=== PATIENT | female | born 1985 | race Caucasian/White ===

== ENCOUNTER 2022-08-10 09:29 | Outpatient (REF) | payer MEDICAID, SELFPAY ==
[2022-08-10 11:01] LABS: Basophils Absolute Auto 0.1 X10*3/uL (0.0-0.2); Basophils Percent Auto 0.7 % (0-2); Eosinophils Absolute Auto 0.2 X10*3/uL (0.0-0.4); Eosinophils Percent Auto 2.2 % (0-4); Hematocrit 39.9 % (37.0-47.0); Hemoglobin 12.7 g/dl (12.0-16.0); Imm Gran Abs Auto 0.02 X10*3/uL (0.00-0.03); Imm Gran Pct Auto 0.2 % (0.0-0.4); Lymphocytes Absolute Auto 2.5 X10*3/uL (1.2-4.9); Lymphocytes Percent Auto 31.1 % (20-40); MANUAL DIFF FLAG SCAN; Mean Corpuscular HGB Conc 31.8 g/dl (31.0-35.0); Mean Corpuscular Hemoglobin 27.5 pg (27.0-33.0); Mean Corpuscular Volume 86.4 fL (80.0-98.0); Mean Platelet Volume 8.7 fL (9.4-12.3); Monocytes Absolute Auto 1.5 X10*3/uL (0.1-1.2); Neutrophils Absolute Auto 3.8 x10*3/uL (2.0-8.3); Neutrophils Percent Auto 46.8 % (45-73); Platelet Count 408 X10*3/uL (160-400); Red Blood Count 4.62 X10*6/uL (4.20-5.50); Red Cell Distribution Width 13.2 % (11.0-16.0); SCAN SMEAR FLAG 1; White Blood Count 8.1 X10*3/uL (4.8-10.8)
[2022-08-10 11:48] LABS: Erythrocyte Sedimentation Rate 14 MM/HR (0-20); SLIDE REVIEW VERIFIED
[2022-08-10 12:29] LABS: HBS Num1 > 1000.00 mIU/mL (0-7.99); HBsAGNum1 0.38 S/CO (0.00-0.99); Hepatitis A Antibody IgM 0.11 Index (0-0.79); Hepatitis B Core Antibody Nonreactive (Nonreactive); Hepatitis B Surface Antigen Negative (Negative); ~HepC Num1 0.09 S/CO (0.00-0.79); ~Hepatitis A Antibody IgM Nonreactive (Nonreactive); ~Hepatitis B Surface Antibody REACTIVE (Nonreactive); ~Hepatitis C Antibody Nonreactive (Nonreactive)
[2022-08-10 14:28] LABS: Alanine Aminotransferase 7 U/L (0-31); Albumin Level 3.9 g/dL (3.5-5.0); Alkaline Phosphatase 59 U/L (39-117); Anion Gap 11 (12-20); Aspartate Amino Transferase 10 U/L (5-31); Bilirubin Total 0.5 mg/dL (0.0-1.0); Blood Urea Nitrogen 15 mg/dL (9-16); Calcium 9.1 mg/dL (8.4-10.2); Carbon Dioxide 26 mmol/L (22-29); Chloride 104 mmol/L (96-108); Estimated Glomerular Filt Rate > 60; Ferritin 71 ng/mL (10-122); Glucose Random 79 mg/dL (60-115); Iron 74 mcg/dL (30-160); Percent Iron Saturation 34 % (15-50); Potassium 4.4 mmol/L (3.3-5.1); Sodium 137 mmol/L (135-145); Total Iron Binding Capacity 215 mcg/dL (228-428); Unsaturated Iron Binding 141 ug/dL
[2022-08-14 02:09] LABS: Transferrin 190 mg/dL (188-341)
[2022-08-14 19:38] LABS: TS Negative Control Passed; TS Panel A 0; TS Panel B 0; TS Positive Control Passed; TSpotTB Negative (Negative)
== END 2022-08-10 09:30 | disposition home or self-care (01) ==
LOC: HO.10HDL 09:29
PROVIDERS: Visit Provider Student in an Organized Health Care Education/Training Program
DX: Z11.59 Encounter for screening for other viral diseases (principal); Z11.7 Encounter for testing for latent tuberculosis infection; M45.A0 Non-radiographic axial spondyloarthritis of unspecified sites in spine; G25.81 Restless legs syndrome; M25.551 Pain in right hip; M25.552 Pain in left hip; D64.9 Anemia, unspecified
CPT/HCPCS: 36415; 80053; 82728; 83540; 84466; 85025; 85652; 86140; 86481; 86704; 86706; 86709; 86803; 87340; 99202

== ENCOUNTER → 2022-12-18 14:41 | Outpatient (BNVA) | payer OTHER, SELFPAY | PROVIDERS: PCP Family Medicine; Visit Provider Student in an Organized Health Care Education/Training Program | DX: M45.A0 Non-radiographic axial spondyloarthritis of unspecified sites in spine (principal); M25.551 Pain in right hip; M25.552 Pain in left hip; Z79.899 Other long term (current) drug therapy | CPT/HCPCS: 99212 ==

== ENCOUNTER 2023-04-22 13:28 | Outpatient (REF) | payer MEDICAID, SELFPAY ==
[2023-04-22 13:40] LABS: MANUAL DIFF FLAG NO
[2023-04-22 14:02] LABS: Basophils Absolute Auto 0.1 X10*3/uL (0.0-0.2); Basophils Percent Auto 0.7 % (0-2); Eosinophils Absolute Auto 0.2 X10*3/uL (0.0-0.4); Eosinophils Percent Auto 1.4 % (0-4); Hematocrit 41.2 % (37.0-47.0); Hemoglobin 13.2 g/dl (12.0-16.0); Imm Gran Abs Auto 0.03 X10*3/uL (0.00-0.03); Imm Gran Pct Auto 0.2 % (0.0-0.4); Lymphocytes Absolute Auto 4.5 X10*3/uL (1.2-4.9); Lymphocytes Percent Auto 36.3 % (20-40); Mean Corpuscular Hemoglobin 27.6 pg (27.0-33.0); Mean Platelet Volume 8.7 fL (9.4-12.3); Monocytes Absolute Auto 1.4 X10*3/uL (0.1-1.2); Monocytes Percent Auto 11.1 % (2-11); Neutrophils Absolute Auto 6.2 x10*3/uL (2.0-8.3); Neutrophils Percent Auto 50.3 % (45-73); Platelet Count 414 X10*3/uL (160-400); Red Blood Count 4.79 X10*6/uL (4.20-5.50); Red Cell Distribution Width 13.5 % (11.0-16.0); White Blood Count 12.3 X10*3/uL (4.8-10.8)
[2023-04-22 14:30] LABS: Alanine Aminotransferase 6 U/L (0-31); Albumin Level 3.9 g/dL (3.5-5.0); Alkaline Phosphatase 57 U/L (39-117); Anion Gap 9 (12-20); Aspartate Amino Transferase 9 U/L (5-31); Bilirubin Total 0.2 mg/dL (0.0-1.0); Blood Urea Nitrogen 12 mg/dL (9-16); C Reactive Protein 0.28 mg/dL (< or = 0.50); Carbon Dioxide 26 mmol/L (22-29); Chloride 106 mmol/L (96-108); Estimated Glomerular Filt Rate > 60; Glucose Random 78 mg/dL (60-115); Potassium 4.2 mmol/L (3.3-5.1); Sodium 137 mmol/L (135-145); Total Protein 7.4 g/dL (6.5-8.0)
[2023-04-22 14:42] LABS: Erythrocyte Sedimentation Rate 10 MM/HR (0-20)
== END 2023-04-22 13:29 | disposition home or self-care (01) ==
LOC: HO.LAB 13:28
PROVIDERS: PCP Family Medicine; Visit Provider Student in an Organized Health Care Education/Training Program
DX: M45.A0 Non-radiographic axial spondyloarthritis of unspecified sites in spine (principal)
CPT/HCPCS: 36415; 80053; 85025; 85652; 86140

== ENCOUNTER 2023-04-24 15:09 | Outpatient (AMB) | payer OTHER, SELFPAY ==
--- NOTE | 2023-04-24 15:24 | MHC.OFFVIS ---
Intake Vital Signs 04/24/23 15:25 Height 5 ft 2 in Weight 186 lb 11.704 oz BMI 34.1 BP 112/84 Blood Pressure Location Rt brachial Position Sitting Pulse 67 Pulse Source Pulse Oximeter Temp 98 F Temp Source Skin Pulse Oximetry (%) 99 Oxygen Delivery Method Room Air Intake Visit Reasons: PsA Intake Note: Here for RA follow up. Needs new PA for Humira- [facility]. Last filled with dispense amount of 2 pens (1 kit) as opposed to 6 pens (3 kits). Training Officer Required: No Accompanied by: Self / Same As Patient Allergies erythromycin base Adverse Reaction (Severe, Verified 04/24/23 15:25) Anaphylaxis Medication List - Last Reconciled 04/24/23 by Mery Millan MD adalimumab (Humira(CF) Pen) 40 mg (0.4 mL) subcut Q10D bupropion HCl 150 mg PO BID etodolac 400 mg PO BID gabapentin 900 mg (3 x 300 mg) PO BEDTIME norethindrone (contraceptive) 0.35 mg PO DAILY omeprazole 20 mg PO BID tizanidine 4 - 8 mg (1 - 2 x 4 mg) PO BEDTIME PRN tramadol 50 - 100 mg PO BID triamcinolone acetonide 0.5% appl topical verapamil ER 240 mg PO DAILY HPI HPI Comments History of Present Illness Details 37-year-old female with non radiographic axial spa returns for follow-up. Patient states that she is doing well overall. Occasional aches and pains but overall doing well. She he does stretching exercises for her hips. States that she is having some shoulder discomfort that she believes was related to repetitive pushing motion at work. Initial history: New patient with history of non radiographic axial spa presents for evaluation. Her previous talent solutions manager left the practice From previous talent solutions manager Dr. Suarez & Dr. Corley Patient has had years of MSK pains, but some pain with inflammatory characteristics.? HLA B27 negative.? She responded fairly were to indomethacin but the medication did not seem to last more than a few hours.? She had an excellent response to etodolac at 400 mg t.i.d. (took omeprazole for GI prophylaxis) Afterwards she developed gradual increase in symptoms with horrible a.m. stiffness lasting 1 hour.? Can hardly make it to bathroom in the middle of the night.? Started SSZ 12/2018.? It seemed quite helpful.? However involved worse and worse migraine headaches.? These resolved on cessation of med.? Started Humira July 2019 with dramatic improvement.? No nocturnal pain, no a.m. stiffness.? More energy. Lumbar films normal, no sacroiliitis.? Hips normal.? Of interest chronic diarrhea since a teenager.? She sometimes had nocturnal diarrhea.? Diarrhea has resolved with Humira.? Possible history of psoriasis Today patient feels well overall. She stated she has been on the Humira every for 1-2 years. She has occasional pain on the outside of her hips, usually worse in the morning. She recently gained 12 lb. 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 Recent psoriasis flares. [facility] Medical History Encounter for testing for latent tuberculosis infection Hypertension Low back pain Migraine Multiple joint pain Non-radiographic axial spondyloarthritis Psoriasis Screening for viral disease Surgical History Hx of section Family History Sister Asthma Mother Hyperlipidemia Hypertension Mental disorder Diabetes Seizure Father Hypertension FH: malignant neoplasm of prostate Maternal Grandmother Carcinoma of breast Social History Household Members: Family and Children Alcohol intake: current Alcohol intake frequency: holidays/special occasions only Patient Tobacco Use Status: Current everyday Tobacco user Tobacco use type: Cigarette Cigarette Packs Per Day: 4 Current occupational status: employed 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 Review of Systems [facility] [place] Reports arthralgias Physical Exam Vital Signs: Last Vital Signs Temp 98 F 04/24/23 15:25 Pulse 67 04/24/23 15:25 BP 112/84 04/24/23 15:25 Pulse Ox 99 04/24/23 15:25 Oxygen Delivery Method Room Air 04/24/23 15:25 BMI result Body Mass Index 34.1 Const General: cooperative, healthy appearing, comfortable and no acute distress Nutritional Appearance: obese Orientation/consciousness: patient oriented x3 Limitations: no limitations HEENT Head: Yes normocephalic and Yes atraumatic Mouth: moist mucous membranes Resp Effort & Inspection: normal respiratory effort and able to speak in complete sentences Auscultation: clear to auscultation bilaterally Cardio Rate: regular rate Rhythm: regular rhythm Heart sounds: S1 normal heart sound present and S2 normal heart sound present GI Inspection: No distended Palpation (GI): Soft to palpation and nontender Skin General skin exam: no rashes or lesions noted Neuro General: patient oriented x3 Extrem Other: Pattie test 10-16 cm No active synovitis Negative Hermilo's test Negative straight leg raise test Bilateral knee crepitus Results Reviewed Results Reviewed: labs 06/20/2022 CBC unremarkable PRIYA IFA negative ESR/CRP normal CMP unremarkable Assessment & Plan Assessment & Plan (1) Non-radiographic axial spondyloarthritis: Comment: Started SSZ 12/2018.? helpful.? caused migraines These resolved on cessation of med.? Started Humira July 2019 with dramatic improvement- advanced to every 10 days sometime in 2020 Code(s): M45.A0 - Non-radiographic axial spondyloarthritis of unspecified sites in spine Plan: 37-year-old female with non radiographic axial SpA presents for follow-up. Doing well overall. Continue Humira 40 mg Q 10 days. Infectious screening, hepatitis panel T spot negative 07/2022 Labs before next visit in 4 months (2) High risk medication use: Code(s): Z79.899 - Other terminal supervisor (current) drug therapy Plan: Advised patient to hold Humira if she develops any signs of infection Plan I spent 25 minutes reviewing patient's chart, evaluating patient, ordering diagnostic workup, counseling patient and documenting in the chart Coding Level of Care Code Est Pt Level 4 (07173) Diagnoses Non-radiographic axial spondyloarthritis M45.A0 High risk medication use Z79.899
[2023-04-24 15:25] VITALS: BP 112/84; PULSE 67; TEMP 36.6; O2SAT 99; BMI 34.1
== END 2023-04-24 16:10 | disposition home or self-care (01) ==
PROVIDERS: PCP Family Medicine; Visit Provider Student in an Organized Health Care Education/Training Program
DX: M45.A0 Non-radiographic axial spondyloarthritis of unspecified sites in spine (principal); Z79.899 Other long term (current) drug therapy
CPT/HCPCS: 99214

== ENCOUNTER → 2023-04-24 15:09 | Outpatient (BNVA) | payer OTHER, SELFPAY | PROVIDERS: PCP Family Medicine; Visit Provider Student in an Organized Health Care Education/Training Program ==

== ENCOUNTER 2023-08-27 14:54 | Outpatient (AMB) | payer OTHER, SELFPAY ==
--- NOTE | 2023-08-27 15:03 | MHC.OFFVIS ---
Intake Vital Signs 08/27/23 15:06 Height 5 ft 2 in Weight 188 lb 7.924 oz BMI 34.5 BP 124/90 H Blood Pressure Location Rt brachial Position Sitting Pulse 71 Pulse Source Pulse Oximeter Temp 97.3 F Temp Source Skin Pulse Oximetry (%) 98 Oxygen Delivery Method Room Air Intake Visit Reasons: AxSpA Intake Note: Pt last seen 04/24/23 presents today for follow up. Top Lift Scourer Required: No Accompanied by: Self / Same As Patient Allergies erythromycin base Adverse Reaction (Severe, Verified 08/27/23 15:08) Anaphylaxis Medication List - Last Reconciled 08/27/23 by Mery Millan MD bupropion HCl 150 mg PO BID etodolac 400 mg PO BID gabapentin 900 mg (3 x 300 mg) PO BEDTIME Humira(CF) Pen (adalimumab) 40 mg (0.4 mL) subcut Q10D NS norethindrone (contraceptive) 0.35 mg PO DAILY omeprazole 20 mg PO BID tizanidine 4 - 8 mg (1 - 2 x 4 mg) PO BEDTIME PRN tramadol 50 - 100 mg PO BID triamcinolone acetonide 0.5% appl topical verapamil ER 240 mg PO DAILY HPI HPI Comments History of Present Illness Details 38-year-old female with non radiographic axial spa returns for follow-up. Patient states that she is doing well overall. On Humira every 10 days. States that since it has been cold she has been getting more lower back pain, hip pain and knee pain. She has been taking etodolac almost daily. Which provides some relief. She takes Tylenol p.m. Initial history: New patient with history of non radiographic axial spa presents for evaluation. Her previous pump house technician left the practice From previous pump house technician Dr. Suarez & Dr. Corley Patient has had years of MSK pains, but some pain with inflammatory characteristics.? HLA B27 negative.? She responded fairly were to indomethacin but the medication did not seem to last more than a few hours.? She had an excellent response to etodolac at 400 mg t.i.d. (took omeprazole for GI prophylaxis) Afterwards she developed gradual increase in symptoms with horrible a.m. stiffness lasting 1 hour.? Can hardly make it to bathroom in the middle of the night.? Started SSZ 12/2018.? It seemed quite helpful.? However involved worse and worse migraine headaches.? These resolved on cessation of med.? Started Humira July 2019 with dramatic improvement.? No nocturnal pain, no a.m. stiffness.? More energy. Lumbar films normal, no sacroiliitis.? Hips normal.? Of interest chronic diarrhea since a teenager.? She sometimes had nocturnal diarrhea.? Diarrhea has resolved with Humira.? Possible history of psoriasis Today patient feels well overall. She stated she has been on the Humira every for 1-2 years. She has occasional pain on the outside of her hips, usually worse in the morning. She recently gained 12 lb. 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 Recent psoriasis flares. [facility] Medical History Encounter for testing for latent tuberculosis infection Screening for viral disease Non-radiographic axial spondyloarthritis Low back pain Hypertension Multiple joint pain Psoriasis Migraine Surgical History Hx of section Family History Sister Asthma Mother Hyperlipidemia Hypertension Mental disorder Diabetes Seizure Father Hypertension FH: malignant neoplasm of prostate Maternal Grandmother Carcinoma of breast Social History Household Members: Family and Children Alcohol intake: current Alcohol intake frequency: holidays/special occasions only Patient Tobacco Use Status: Current everyday Tobacco user Tobacco use type: Cigarette Cigarette Packs Per Day: 4 Current occupational status: employed 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 Review of Systems [place] Reports arthralgias Physical Exam Vital Signs: Last Vital Signs Temp 97.3 F 08/27/23 15:06 Pulse 71 08/27/23 15:06 BP 124/90 H 08/27/23 15:06 Pulse Ox 98 08/27/23 15:06 Oxygen Delivery Method Room Air 08/27/23 15:06 BMI result Body Mass Index 34.5 Const General: cooperative, healthy appearing, comfortable and no acute distress Nutritional Appearance: obese Orientation/consciousness: patient oriented x3 Limitations: no limitations HEENT Head: Yes normocephalic and Yes atraumatic Mouth: moist mucous membranes Resp Effort & Inspection: normal respiratory effort and able to speak in complete sentences Auscultation: clear to auscultation bilaterally Cardio Rate: regular rate Rhythm: regular rhythm Heart sounds: S1 normal heart sound present and S2 normal heart sound present GI Inspection: No distended Palpation (GI): Soft to palpation and nontender Skin General skin exam: no rashes or lesions noted Neuro General: patient oriented x3 Extrem Other: Pattie test 10-16 cm No active synovitis Negative Hermilo's test Negative straight leg raise test Bilateral knee crepitus No trochanteric bursa area tenderness today bilateral Results Reviewed Results Reviewed: labs 06/20/2022 CBC unremarkable PRIYA IFA negative ESR/CRP normal CMP unremarkable Assessment & Plan Assessment & Plan (1) Non-radiographic axial spondyloarthritis: Comment: Started SSZ 12/2018.? helpful.? caused migraines These resolved on cessation of med.? Started Humira July 2019 with dramatic improvement- advanced to every 10 days sometime in 2020 Code(s): M45.A0 - Non-radiographic axial spondyloarthritis of unspecified sites in spine Plan: 38-year-old female with non radiographic axial SpA presents for follow-up. Doing well overall. Her aches and pains are likely due to degenerative arthritis. Patient is taking etodolac almost daily. I suggested using more Tylenol and reducing it total lack as much as possible. Continue Humira 40 mg Q 10 days. Infectious screening, hepatitis panel T spot negative 07/2022 Labs before next visit in 4 months (2) High risk medication use: Code(s): Z79.899 - Other nursing home (current) drug therapy Plan: Advised patient to hold Humira if she develops any signs of infection (3) Immunization counseling: Code(s): Z71.85 - Encounter for immunization safety counseling Plan: Patient is up-to-date on her new COVID booster and flu vaccine for this season. Plan I spent 25 minutes reviewing patient's chart, evaluating patient, ordering diagnostic workup, counseling patient and documenting in the chart Orders: Orders Comprehensive Met. Panel 4 Months M45.A0 - Non-radiographic axial spondyloarthritis of unspecified sites in spine, Z79.899 - Other termite exterminator helper (current) drug therapy C Reactive Protein 4 Months M45.A0 - Non-radiographic axial spondyloarthritis of unspecified sites in spine, Z79.899 - Other termite exterminator helper (current) drug therapy Erythrocyte Sedimentation Rate 4 Months M45.A0 - Non-radiographic axial spondyloarthritis of unspecified sites in spine, Z79.899 - Other termite exterminator helper (current) drug therapy Complete Blood Count Auto Diff 4 Months M45.A0 - Non-radiographic axial spondyloarthritis of unspecified sites in spine, Z79.899 - Other nursing home (current) drug therapy Medications: Refilled tizanidine 4 - 8 mg (1 - 2 x 4 mg) PO BEDTIME PRN 60 tabs 1RF for muscle spasm M45.A0 - Non-radiographic axial spondyloarthritis of unspecified sites in spine Coding Level of Care Code Est Pt Level 4 (21185) Diagnoses Non-radiographic axial spondyloarthritis M45.A0 High risk medication use Z79.899 Immunization counseling Z71.85
[2023-08-27 15:06] VITALS: BP 124/90; PULSE 71; TEMP 36.3; O2SAT 98; BMI 34.5
== END 2023-08-27 15:18 | disposition home or self-care (01) ==
LOC: HO.RHE 14:54
PROVIDERS: PCP Family Medicine; Visit Provider Student in an Organized Health Care Education/Training Program
DX: M45.A0 Non-radiographic axial spondyloarthritis of unspecified sites in spine (principal); Z79.899 Other long term (current) drug therapy; Z71.85 Encounter for immunization safety counseling
CPT/HCPCS: 99214

== ENCOUNTER → 2023-08-27 14:54 | Outpatient (BNVA) | payer OTHER, SELFPAY | PROVIDERS: PCP Family Medicine; Visit Provider Student in an Organized Health Care Education/Training Program ==

== ENCOUNTER 2023-12-30 10:40 | Outpatient (REF) | payer OTHER, SELFPAY ==
[2023-12-30 11:03] LABS: MANUAL DIFF FLAG NO
[2023-12-30 11:39] LABS: Basophils Absolute Auto 0.1 X10*3/uL (0.0-0.2); Basophils Percent Auto 0.8 % (0-2); Eosinophils Absolute Auto 0.3 X10*3/uL (0.0-0.4); Eosinophils Percent Auto 2.4 % (0-4); Hematocrit 43.8 % (37.0-47.0); Imm Gran Abs Auto 0.04 X10*3/uL (0.00-0.03); Imm Gran Pct Auto 0.3 % (0.0-0.4); Lymphocytes Absolute Auto 4.4 X10*3/uL (1.2-4.9); Lymphocytes Percent Auto 33.5 % (20-40); Mean Corpuscular Hemoglobin 27.6 pg (27.0-33.0); Mean Corpuscular Volume 86.4 fL (80.0-98.0); Mean Platelet Volume 8.6 fL (9.4-12.3); Monocytes Absolute Auto 1.2 X10*3/uL (0.1-1.2); Monocytes Percent Auto 8.9 % (2-11); Neutrophils Absolute Auto 7.1 x10*3/uL (2.0-8.3); Neutrophils Percent Auto 54.1 % (45-73); Platelet Count 460 X10*3/uL (160-400); Red Blood Count 5.07 X10*6/uL (4.20-5.50); Red Cell Distribution Width 13.2 % (11.0-16.0); White Blood Count 13.1 X10*3/uL (4.8-10.8)
[2023-12-30 12:12] LABS: Alanine Aminotransferase 12 U/L (0-31); Albumin Level 4.1 g/dL (3.5-5.0); Alkaline Phosphatase 75 U/L (39-117); Anion Gap 13 (12-20); Aspartate Amino Transferase 10 U/L (5-31); Bilirubin Total 0.3 mg/dL (0.0-1.0); Blood Urea Nitrogen 12 mg/dL (9-16); C Reactive Protein 0.44 mg/dL (< or = 0.50); Calcium 9.7 mg/dL (8.4-10.2); Carbon Dioxide 27 mmol/L (22-29); Chloride 104 mmol/L (96-108); Estimated Glomerular Filt Rate > 60; Glucose Random 95 mg/dL (60-115); Potassium 4.2 mmol/L (3.3-5.1); Sodium 140 mmol/L (135-145); Total Protein 7.9 g/dL (6.5-8.0)
[2023-12-30 12:27] LABS: Erythrocyte Sedimentation Rate 14 MM/HR (0-20)
== END 2023-12-30 10:41 | disposition home or self-care (01) ==
LOC: HO.LAB 10:40
PROVIDERS: PCP Family Medicine; Visit Provider Student in an Organized Health Care Education/Training Program
DX: M45.A0 Non-radiographic axial spondyloarthritis of unspecified sites in spine (principal); Z79.899 Other long term (current) drug therapy
CPT/HCPCS: 36415; 80053; 85025; 85652; 86140

== ENCOUNTER 2024-01-06 09:00 | Outpatient (AMB) | payer OTHER, SELFPAY ==
--- NOTE | 2024-01-06 09:11 | MHC.OFFVIS ---
Vital Signs 01/06/24 09:13 Height 5 ft 2 in Weight 191 lb 12.835 oz BMI 35.1 BP 110/80 Blood Pressure Location Rt brachial Position Sitting Pulse 74 Pulse Source Pulse Oximeter Pulse Oximetry (%) 98 Oxygen Delivery Method Room Air Intake Visit Reasons: AxSpA Intake Note: Patient last seen 08/27/23 presents today for follow up and test results. Acquisition Cost Estimator Required: No Accompanied by: Self / Same As Patient Allergies erythromycin base Adverse Reaction (Severe, Verified 01/06/24 09:12) Anaphylaxis Medication List - Last Reconciled 01/06/24 by Mery Millan MD bupropion HCl SR 150 mg PO BID etodolac 400 mg PO BID PRN gabapentin 900 mg (3 x 300 mg) PO BEDTIME Humira(CF) Pen (adalimumab) 40 mg (0.4 mL) subcut Q10D NS norethindrone (contraceptive) 0.35 mg PO DAILY omeprazole 20 mg PO BID tizanidine 4 - 8 mg (1 - 2 x 4 mg) PO BEDTIME PRN tramadol 50 - 100 mg PO BID triamcinolone acetonide 0.5% appl topical verapamil ER 240 mg PO DAILY HPI Comments Details: 38-year-old female with non radiographic axial spa returns for follow-up. Patient states that she is doing well overall. On Humira every 10 days. She states that back in September she caught an infection from her son and she was very sick and achy for 2 weeks. Is doing fairly well overall. Many of her joints crack. She states that the Humira works reasonably well for 7-8 days then some of the pain starts to come back. She needs to take etodolac twice daily. Smokes about a quarter pack/day. Initial history: New patient with history of non radiographic axial spa presents for evaluation. Her previous biomedical repair technician left the practice From previous biomedical repair technician Dr. Suarez & Dr. Corley Patient has had years of MSK pains, but some pain with inflammatory characteristics.? HLA B27 negative.? She responded fairly were to indomethacin but the medication did not seem to last more than a few hours.? She had an excellent response to etodolac at 400 mg t.i.d. (took omeprazole for GI prophylaxis) Afterwards she developed gradual increase in symptoms with horrible a.m. stiffness lasting 1 hour.? Can hardly make it to bathroom in the middle of the night.? Started SSZ 12/2018.? It seemed quite helpful.? However involved worse and worse migraine headaches.? These resolved on cessation of med.? Started Humira July 2019 with dramatic improvement.? No nocturnal pain, no a.m. stiffness.? More energy. Lumbar films normal, no sacroiliitis.? Hips normal.? Of interest chronic diarrhea since a teenager.? She sometimes had nocturnal diarrhea.? Diarrhea has resolved with Humira.? Possible history of psoriasis Today patient feels well overall. She stated she has been on the Humira every for 1-2 years. She has occasional pain on the outside of her hips, usually worse in the morning. She recently gained 12 lb. 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 Recent psoriasis flares. [facility] Medical History Encounter for testing for latent tuberculosis infection Screening for viral disease Non-radiographic axial spondyloarthritis Low back pain Hypertension Multiple joint pain Psoriasis Migraine Surgical History Hx of section Family History Sister Asthma Mother Hyperlipidemia Hypertension Mental disorder Diabetes Seizure Father Hypertension FH: malignant neoplasm of prostate Maternal Grandmother Carcinoma of breast Social History Household Members: Family and Children Alcohol intake: current Alcohol intake frequency: holidays/special occasions only Patient Tobacco Use Status: Current everyday Tobacco user Tobacco use type: Cigarette Cigarette Packs Per Day: 4 Current occupational status: employed 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 of Systems [facility] [place] Reports arthralgias Physical Exam Vital Signs: Last Vital Signs Pulse 74 01/06/24 09:13 BP 110/80 01/06/24 09:13 Pulse Ox 98 01/06/24 09:13 Oxygen Delivery Method Room Air 01/06/24 09:13 BMI result Body Mass Index 35.1 Const General: cooperative, healthy appearing, comfortable and no acute distress Nutritional Appearance: obese Orientation/consciousness: patient oriented x3 Limitations: no limitations HEENT Head: Yes normocephalic and Yes atraumatic Mouth: moist mucous membranes Resp Effort & Inspection: normal respiratory effort and able to speak in complete sentences Auscultation: clear to auscultation bilaterally Cardio Rate: regular rate Rhythm: regular rhythm Heart sounds: S1 normal heart sound present and S2 normal heart sound present GI Inspection: No distended Palpation (GI): Soft to palpation and nontender Skin General skin exam: no rashes or lesions noted Neuro General: patient oriented x3 Extrem Other: Pattie test 10-16 cm No active synovitis Negative Hermilo's test Negative straight leg raise test Bilateral knee crepitus No trochanteric bursa area tenderness today bilateral Results Reviewed Results Reviewed: labs 06/20/2022 CBC unremarkable PRIYA IFA negative ESR/CRP normal CMP unremarkable Assessment & Plan Assessment & Plan (1) Non-radiographic axial spondyloarthritis: Comment: Started SSZ 12/2018.? helpful.? caused migraines These resolved on cessation of med.? Started Humira July 2019 with dramatic improvement- advanced to every 10 days sometime in 2020 Code(s): M45.A0 - Non-radiographic axial spondyloarthritis of unspecified sites in spine Category: Medical Plan: 38-year-old female with non radiographic axial SpA presents for follow-up. Doing well overall. Her aches and pains are likely due to degenerative arthritis. Patient is taking etodolac 400 mg bid. I suggested using more Tylenol and reducing Etodolc as much as possible. Continue Humira 40 mg Q 10 days. Continue gabapentin and tizanidine as prescribed Infectious screening, hepatitis panel T spot negative 07/2022 Labs before next visit in 4 months (2) High risk medication use: Code(s): Z79.899 - Other local intermodal truck driver (current) drug therapy Category: Medical Plan: Advised patient to hold Humira if she develops any signs of infection Plan I spent 25 minutes reviewing patient's chart, evaluating patient, ordering diagnostic workup, counseling patient and documenting in the chart Orders: Orders C Reactive Protein 4 Months M45.A0 - Non-radiographic axial spondyloarthritis of unspecified sites in spine Erythrocyte Sedimentation Rate 4 Months M45.A0 - Non-radiographic axial spondyloarthritis of unspecified sites in spine Hepatitis A,B,C Profile 4 Months Z11.59 - Encounter for screening for other viral diseases Complete Blood Count Auto Diff 4 Months M45.A0 - Non-radiographic axial spondyloarthritis of unspecified sites in spine Comprehensive Met. Panel 4 Months M45.A0 - Non-radiographic axial spondyloarthritis of unspecified sites in spine T Spot TB 4 Months Z11.7 - Encounter for testing for latent tuberculosis infection Coding Level of Care Code Est Pt Level 4 (37373) Diagnoses Non-radiographic axial spondyloarthritis M45.A0 High risk medication use Z79.899
[2024-01-06 09:13] VITALS: BP 110/80; PULSE 74; O2SAT 98; BMI 35.1
== END 2024-01-06 09:35 | disposition home or self-care (01) ==
PROVIDERS: PCP Family Medicine; Visit Provider Student in an Organized Health Care Education/Training Program
DX: M45.A0 Non-radiographic axial spondyloarthritis of unspecified sites in spine (principal); Z79.899 Other long term (current) drug therapy
CPT/HCPCS: 99214

== ENCOUNTER → 2024-01-06 09:00 | Outpatient (BNVA) | payer OTHER, SELFPAY | PROVIDERS: PCP Family Medicine; Visit Provider Student in an Organized Health Care Education/Training Program ==

== ENCOUNTER 2024-02-03 08:27 | Outpatient (AMB) | payer OTHER, SELFPAY ==
--- NOTE | 2024-02-03 08:30 | A.OFFVIS_ITS ---
Vital Signs 02/03/24 08:31 Height 5 ft 2 in Weight 187 lb 9.814 oz BMI 34.3 BP 104/70 Blood Pressure Location Rt brachial Position Sitting Pulse 73 Pulse Source Pulse Oximeter Pulse Oximetry (%) 97 Oxygen Delivery Method Room Air Intake Visit Reasons: PSA/CM Intake Note: Pt presents today for follow up up visit. She was in urgent care for mouth/tongue lesions and was advised to follow up with rheum for lupus eval. Has been using magic mouthwash with little relief. Reports hoarseness, and tongue burning Supply Chain Planner Required: No Accompanied by: Self / Same As Patient Allergies erythromycin base Adverse Reaction (Severe, Verified 02/03/24 08:39) Anaphylaxis Medication List - Last Reconciled 02/03/24 by Mery Millan MD bupropion HCl SR 150 mg PO BID etodolac 400 mg PO BID PRN gabapentin 900 mg (3 x 300 mg) PO BEDTIME Humira(CF) Pen (adalimumab) 40 mg (0.4 mL) subcut Q10D NS norethindrone (contraceptive) 0.35 mg PO DAILY omeprazole 20 mg PO BID tizanidine 4 - 8 mg (1 - 2 x 4 mg) PO BEDTIME PRN tramadol 50 - 100 mg PO BID triamcinolone acetonide 0.5% appl topical verapamil ER 240 mg PO DAILY HPI Comments Details: 38-year-old female with non radiographic axial spa returns for an urgent visit. Last week she went to urgent care due to lesions, swelling and burning of her tongue and side of her gum. At urgent care she was told that she might have an SLE flare-up. She was prescribed magic mouthwash with some improvement. Her voice is still not normal. She denies any skin rashes, swollen joints or fevers. Initial history: New patient with history of non radiographic axial spa presents for evaluation. Her previous lead quality control technician left the practice From previous lead quality control technician Dr. Suarez & Dr. Corley Patient has had years of MSK pains, but some pain with inflammatory characteristics.? HLA B27 negative.? She responded fairly were to indomethacin but the medication did not seem to last more than a few hours.? She had an excellent response to etodolac at 400 mg t.i.d. (took omeprazole for GI prophylaxis) Afterwards she developed gradual increase in symptoms with horrible a.m. stiffness lasting 1 hour.? Can hardly make it to bathroom in the middle of the night.? Started SSZ 12/2018.? It seemed quite helpful.? However involved worse and worse migraine headaches.? These resolved on cessation of med.? Started Humira July 2019 with dramatic improvement.? No nocturnal pain, no a.m. stiffness.? More energy. Lumbar films normal, no sacroiliitis.? Hips normal.? Of interest chronic diarrhe a since a teenager.? She sometimes had nocturnal diarrhea.? Diarrhea has resolved with Humira.? Possible history of psoriasis Today patient feels well overall. She stated she has been on the Humira every for 1-2 years. She has occasional pain on the outside of her hips, usually worse in the morning. She recently gained 12 lb. 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 Recent psoriasis flares. [facility] Medical History Non-radiographic axial spondyloarthritis Low back pain Hypertension Multiple joint pain Psoriasis Migraine Surgical History Hx of section Family History Sister Asthma Mother Hyperlipidemia Hypertension Mental disorder Diabetes Seizure Father Hypertension FH: malignant neoplasm of prostate Maternal Grandmother Carcinoma of breast Social History Household Members: Family and Children Alcohol intake: current Alcohol intake frequency: holidays/special occasions only Patient Tobacco Use Status: Current everyday Tobacco user Tobacco use type: Cigarette Cigarette Packs Per Day: 4 Current occupational status: employed 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 Review of Systems ENT Reports change in voice and Reports mouth lesions Musc Denies arthralgias and Denies joint swelling Skin/Breast Denies rash Physical Exam Vital Signs: Last Vital Signs Pulse 73 02/03/24 08:31 BP 104/70 02/03/24 08:31 Pulse Ox 97 02/03/24 08:31 Oxygen Delivery Method Room Air 02/03/24 08:31 BMI result Body Mass Index 34.3 Const General: cooperative, healthy appearing, comfortable and no acute distress Nutritional Appearance: obese Orientation/consciousness: patient oriented x3 Limitations: no limitations HEENT Head: Yes normocephalic and Yes atraumatic Mouth: moist mucous membranes Resp Effort & Inspection: normal respiratory effort and able to speak in complete sentences Skin General skin exam: no rashes or lesions noted Neuro General: patient oriented x3 Extrem Other: No active synovitis Results Reviewed Results Reviewed: labs 06/20/2022 CBC unremarkable PRIYA IFA negative ESR/CRP normal CMP unremarkable Assessment & Plan Assessment & Plan (1) Non-radiographic axial spondyloarthritis: Comment: Started SSZ 12/2018.? helpful.? caused migraines These resolved on cessation of med.? Started Humira July 2019 with dramatic improvement- advanced to every 10 da ys sometime in 2020 Code(s): M45.A0 - Non-radiographic axial spondyloarthritis of unspecified sites in spine Category: Medical Plan: 38-year-old female with non radiographic axial SpA returns for an urgent visit. She went to urgent care due to sore throat, oral lesions, swelling of her tongue. She was prescribed magic mouthwash with some improvement. Start dexamethasone oral elix swish and spit Q 6-8 hours for a few days. Follow-up as scheduled in April Plan I spent 15 minutes reviewing patient's chart, evaluating patient, counseling patient and documenting in the chart Medications: New dexamethasone (5 mL) swish & spit q6-8 237 mL 0RF Coding Level of Care Code Est Pt Level 3 (58024) Diagnoses Non-radiographic axial spondyloarthritis M45.A0
[2024-02-03 08:31] VITALS: BP 104/70; PULSE 73; O2SAT 97; BMI 34.3
== END 2024-02-03 08:55 | disposition home or self-care (01) ==
PROVIDERS: PCP Family Medicine; Visit Provider Student in an Organized Health Care Education/Training Program
DX: M45.A0 Non-radiographic axial spondyloarthritis of unspecified sites in spine (principal)
CPT/HCPCS: 99213

== ENCOUNTER → 2024-02-03 08:27 | Outpatient (BNVA) | payer OTHER, SELFPAY | PROVIDERS: PCP Family Medicine; Visit Provider Student in an Organized Health Care Education/Training Program ==

== ENCOUNTER 2024-07-06 15:26 | Outpatient (AMB) | payer OTHER, SELFPAY ==
--- NOTE | 2024-07-06 15:38 | A.OFFVIS_ITS ---
Vital Signs 07/06/24 15:42 Height 5 ft 2 in Weight 190 lb 7.67 oz BMI 34.8 BP 110/70 Blood Pressure Location Lt brachial Position Sitting Pulse 68 Pulse Source Pulse Oximeter Pulse Oximetry (%) 98 Oxygen Delivery Method Room Air Intake Visit Reasons: AxSpA/CM Intake Note: Patient last seen by Doctor Mery Millan on 02/03/24. Presents today for AxSpA follow up. Allergies erythromycin base Adverse Reaction (Severe, Verified 07/06/24 15:43) Anaphylaxis Medication List - Last Reconciled 07/06/24 by Mery Millan MD bupropion HCl SR 150 mg PO BID dexamethasone swish & spit q6-8 etodolac 400 mg PO BID PRN gabapentin 900 mg (3 x 300 mg) PO BEDTIME Humira(CF) Pen (adalimumab) 40 mg (0.4 mL) subcut Q10D NS norethindrone (contraceptive) 0.35 mg PO DAILY omeprazole 20 mg PO BID tizanidine 4 - 8 mg (1 - 2 x 4 mg) PO BEDTIME PRN tramadol 50 - 100 mg PO BID triamcinolone acetonide 0.5% appl topical verapamil ER 240 mg PO DAILY HPI Comments Details: 38-year-old female with non radiographic axial spa returns for follow-up. Doing well overall on Humira 40 mg injection every 10 days. She has no complaints today. Denies any joint pain swelling or stiffness. She remains on etodolac 400 mg daily. She takes them before she goes to work Initial history: New patient with history of non radiographic axial spa presents for evaluation. Her previous boiler house mechanic left the practice From previous boiler house mechanic Dr. Suarez & Dr. Corley Patient has had years of MSK pains, but some pain with inflammatory characteristics.? HLA B27 negative.? She responded fairly were to indomethacin but the medication did not seem to last more than a few hours.? She had an excellent response to etodolac at 400 mg t.i.d. (took omeprazole for GI prophylaxis) Afterwards she developed gradual increase in symptoms with horrible a.m. stiffness lasting 1 hour.? Can hardly make it to bathroom in the middle of the night.? Started SSZ 12/2018.? It seemed quite helpful.? However involved worse and worse migraine headaches.? These resolved on cessation of med.? Started Humira July 2019 with dramatic improvement.? No nocturnal pain, no a.m. stiffness.? More energy. Lumbar films normal, no sacroiliitis.? Hips normal.? Of interest chronic diarrhea since a teenager.? She sometimes had nocturnal diarrhea.? Diarrhea has resolved with Humira.? Possible history of psoriasis Today patient feels well overall. She stated she has been on the Humira every for 1-2 years. She has occasional pain on the outside of her hips, usually worse in the morning. She recently gained 12 lb. 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 Recent psoriasis flares. [facility] Medical History Non-radiographic axial spondyloarthritis Low back pain Hypertension Multiple joint pain Psoriasis Migraine Surgical History Hx of section Family History Sister Asthma Mother Hyperlipidemia Hypertension Mental disorder Diabetes Seizure Father Hypertension FH: malignant neoplasm of prostate Maternal Grandmother Carcinoma of breast Social History Household Members: Family and Children Alcohol intake: current Alcohol intake frequency: holidays/special occasions only Patient Tobacco Use Status: Current everyday Tobacco user Tobacco use type: Cigarette Cigarette Packs Per Day: 4 Current occupational status: employed 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 Review of Systems Musc Denies back pain, Denies arthralgias, Denies joint swelling and Denies stiffness Physical Exam Vital Signs: Last Vital Signs Pulse 68 07/06/24 15:42 BP 110/70 07/06/24 15:42 Pulse Ox 98 07/06/24 15:42 Oxygen Delivery Method Room Air 07/06/24 15:42 BMI result Body Mass Index 34.8 Const General: cooperative, healthy appearing, comfortable and no acute distress Nutritional Appearance: obese Orientation/consciousness: patient oriented x3 Limitations: no limitations HEENT Head: Yes normocephalic and Yes atraumatic Mouth: moist mucous membranes Resp Effort & Inspection: normal respiratory effort and able to speak in complete sentences Auscultation: clear to auscultation bilaterally Cardio Rate: regular rate Rhythm: regular rhythm Heart sounds: S1 normal heart sound present and S2 normal heart sound present GI Inspection: No distended Palpation (GI): Soft to palpation and nontender Skin General skin exam: no rashes or lesions noted Neuro General: patient oriented x3 Extrem Other: Pattie test 10-16 cm No active synovitis Negative Hermilo's test Negative straight leg raise test Bilateral knee crepitus No trochanteric bursa area tenderness today bilateral Assessment & Plan Assessment & Plan (1) Non-radiographic axial spondyloarthritis: Comment: Started SSZ 12/2018.? helpful.? caused migraines These resolved on cessation of med.? Started Humira July 2019 with dramatic improvement- advanced to every 10 days sometime in 2020 Code(s): M45.A0 - Non-radiographic axial spondyloarthritis of unspecified sites in spine Category: Medical Plan: 38-year-old female with non radiographic axial SpA presents for follow-up. Doing well overall on Humira 40 mg every 10 days. She also takes etodolac 400 mg daily. She has cut down from 400 mg Twice daily. Continue Humira 40 mg Q 10 days. Continue gabapentin and tizanidine as prescribed Infectious screening, hepatitis panel T spot negative 07/2022. Check before next visit Labs before next visit in 4 months (2) High risk medication use: Code(s): Z79.899 - Other oil heaterman (current) drug therapy Category: Medical Plan: Advised patient to hold Humira if she develops any signs of infection Plan I spent 25 minutes reviewing patient's chart, evaluating patient, ordering diagnostic workup, counseling patient and documenting in the chart Orders: Orders Comprehensive Met. Panel 4 Months M45.A0 - Non-radiographic axial spondyloarthritis of unspecified sites in spine, Z79.899 - Other senior care (current) drug therapy C Reactive Protein 4 Months M45.A0 - Non-radiographic axial spondyloarthritis of unspecified sites in spine, Z79.899 - Other senior care (current) drug therapy Hepatitis A,B,C Profile 4 Months Z11.59 - Encounter for screening for other viral diseases T Spot TB 4 Months Z11.7 - Encounter for testing for latent tuberculosis infection Complete Blood Count Auto Diff 4 Months M45.A0 - Non-radiographic axial spondyloarthritis of unspecified sites in spine, Z79.899 - Other senior care (current) drug therapy Erythrocyte Sedimentation Rate 4 Months M45.A0 - Non-radiographic axial spondyloarthritis of unspecified sites in spine, Z79.899 - Other oil heaterman (current) drug therapy Coding Level of Care Code Est Pt Level 4 (31606) Complex EM visit Add On G2211 Diagnoses Non-radiographic axial spondyloarthritis M45.A0 High risk medication use Z79.899
[2024-07-06 15:42] VITALS: BP 110/70; PULSE 68; O2SAT 98; BMI 34.8
== END 2024-07-06 16:04 | disposition home or self-care (01) ==
PROVIDERS: PCP Family Medicine; Visit Provider Student in an Organized Health Care Education/Training Program
DX: M45.A0 Non-radiographic axial spondyloarthritis of unspecified sites in spine (principal); Z79.899 Other long term (current) drug therapy
CPT/HCPCS: 99214; G2211

== ENCOUNTER → 2024-07-06 15:26 | Outpatient (BNVA) | payer OTHER, SELFPAY | PROVIDERS: PCP Family Medicine; Visit Provider Student in an Organized Health Care Education/Training Program ==

== ENCOUNTER 2024-11-02 11:30 | Outpatient (REF) | payer OTHER, SELFPAY ==
[2024-11-02 11:44] LABS: MANUAL DIFF FLAG NO
[2024-11-02 12:22] LABS: Basophils Absolute Auto 0.1 X10*3/uL (0.0-0.2); Basophils Percent Auto 0.6 % (0-2); Eosinophils Absolute Auto 0.2 X10*3/uL (0.0-0.4); Eosinophils Percent Auto 1.4 % (0-4); Hematocrit 41.6 % (37.0-47.0); Hemoglobin 13.4 g/dl (12.0-16.0); Imm Gran Abs Auto 0.05 X10*3/uL (0.00-0.03); Imm Gran Pct Auto 0.4 % (0.0-0.4); Lymphocytes Percent Auto 34.7 % (20-40); Mean Corpuscular HGB Conc 32.2 g/dl (31.0-35.0); Mean Corpuscular Hemoglobin 27.3 pg (27.0-33.0); Mean Corpuscular Volume 84.9 fL (80.0-98.0); Mean Platelet Volume 8.8 fL (9.4-12.3); Monocytes Absolute Auto 1.5 X10*3/uL (0.1-1.2); Neutrophils Absolute Auto 5.8 x10*3/uL (2.0-8.3); Neutrophils Percent Auto 49.9 % (45-73); Platelet Count 381 X10*3/uL (160-400); Red Cell Distribution Width 13.8 % (11.0-16.0); White Blood Count 11.6 X10*3/uL (4.8-10.8)
[2024-11-02 13:03] LABS: Alanine Aminotransferase 12 U/L (0-31); Albumin Level 3.9 g/dL (3.5-5.0); Alkaline Phosphatase 64 U/L (39-117); Anion Gap 8 (12-20); Aspartate Amino Transferase 12 U/L (5-31); Bilirubin Total 0.3 mg/dL (0.0-1.0); Blood Urea Nitrogen 12 mg/dL (9-16); Calcium 8.8 mg/dL (8.4-10.2); Carbon Dioxide 28 mmol/L (22-29); Chloride 107 mmol/L (96-108); Estimated Glomerular Filt Rate > 60; Glucose Random 83 mg/dL (60-115); Potassium 4.1 mmol/L (3.3-5.1); Sodium 139 mmol/L (135-145); Total Protein 7.9 g/dL (6.5-8.0)
--- OUTSIDE RECORDS SUMMARY | 2024-11-02 13:12 | XMS_ITS | Data Portability ---
Author Organization [facility], , [facility] Address [address] [place] [address] Care Team Providers Care Automotive Vehicle Inspector Name Role Phone KY DIXON Primary Care Provider [facility] Court Manager [facility] Stage Driver ADELINE LEA Court Manager TONO MARTÍNEZ Firer Glost Kiln [facility] Orthopedist KRYSTAL ONOFRE [employer]ator [facility] [phone] Assessment No assessment recorded. Plan of Treatment Reminders Order Date Submit Date Provider Last Modified By Organization Details Last Modified Time Details Appointments Wellness Visit 30 2024 09:00A M Ky Dixon MD Not available Not available Not available Lab bacterial vaginosis + vaginitis panel, vaginal - source: vaginal 2023 024 [facility], [address] [place] [address], [id number], 06/30/2024 16:04:09 test, urine [email or web address] [facility], [address] [place] [address], [id number], 06/30/2024 10:49:52 Referral sports medicine referral - 2 months shoulder pain. suspect bicep tendoniti s given ecrcises 2024 025 [email or web address] Daniel Vides MD, [address] [place] [address], [id number], 11/02/2024 10:07:57 Procedures None recorded. Surgeries None recorded. Imaging US, pelvis, transabdo karine + transvagi nal - 38 y/o with pelvic pain, please assess for any abnormali ty. 2023 024 [facility] (Imaging), [address], [place], [address], 07/08/2024 15:30:16 Medication Orders triamcino lone acetonide 0.5 % topical cream 2022 023 [facility], [address] [facility], [place], [address], 12/17/2022 11:23:04 Patient TargetsNo targets recorded. 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 susp ect bicep tendonitis given ecrcises Referring Physician: Ky Dixon, Family Medicine, Encounter Date: 10/30/2024 Results Created Date Observation Date Name Description Value Unit Range Abnormal Flag Note LastModifiedBy Organization Detail LastModifiedTime 04/13/2004/13/2024 CBC WBC 10.38 K/??L 3.98-1 0.04 high Not Available [address], [address], 04/13/2024 10:35:25 04/13/20 24 04/13/2024 CBC RBC 4.73 M/??L 3.93-5 .22 Not Available [address], [address], 04/13/2024 10:35:25 04/13/20 24 04/13/2024 CBC HGB 13.2 g/dL 11.2-1 5.7 Not Available [address], [address], 04/13/2024 10:35:25 04/13/20 24 04/13/2024 CBC HCT 40.8 % 34.1-4 4.9 Not Available [address], [address], 04/13/2024 10:35:25 04/13/20 24 04/13/2024 CBC MCV 86.3 fL 79.4-9 4.8 Not Available [address], [address], 04/13/2024 10:35:25 04/13/20 24 04/13/2024 CBC MCH 27.9 pg 25.6-3 2.2 Not Available [address], [address], 04/13/2024 10:35:25 04/13/20 24 04/13/2024 CBC MCHC 32.4 g/dL 32.2-3 5.5 Not Available [address], [address], 04/13/2024 10:35:25 04/13/20 24 04/13/2024 CBC plt 422 K/??L 182-36 9 high Not Available [address], [address], 04/13/2024 10:35:25 04/13/20 24 04/13/2024 CBC MPV 8.9 fL 9.4-12 .3 low Not Available [address], [address], 04/13/2024 10:35:25 04/13/20 24 04/13/2024 CBC neut% 37.3 % 34.0-7 1.1 Not Available [address], [address], 04/13/2024 10:35:25 04/13/20 24 04/13/2024 CBC neut# 3.87 1.56-6 .13 Not Available [address], [address], 04/13/2024 10:35:25 04/13/20 24 04/13/2024 CBC lymph % 47.5 % 19.3-5 1.7 Not Available [address], [address], 04/13/2024 10:35:25 04/13/20 24 04/13/2024 CBC lymph # 4.93 K/??L 1.18-3 .74 high Not Available [address], [address], 04/13/2024 10:35:25 04/13/20 24 04/13/2024 CBC mono% 12.1 % 4.7-12 .5 Not Available [address], [address], 04/13/2024 10:35:25 04/13/20 24 04/13/2024 CBC mono# 1.26 0.24-0 .56 high Not Available [address], [address], 04/13/2024 10:35:25 04/13/20 24 04/13/2024 CBC eo% 1.8 % 0.7-5. 8 Not Available [address], [address], 04/13/2024 10:35:25 04/13/20 24 04/13/2024 CBC eo# 0.19 0.04-0 .36 Not Available [address], [address], 04/13/2024 10:35:25 04/13/20 24 04/13/2024 CBC baso% 1.0 % 0.1-1. 2 Not Available [address], [address], 04/13/2024 10:35:25 04/13/20 24 04/13/2024 CBC baso# 0.10 0.00-0 .08 high Not Available [address], [address], 04/13/2024 10:35:25 04/13/20 24 04/13/2024 CBC RDW-CV 13.4 % 11.7-1 4.4 Not Available [address], [address], 04/13/2024 10:35:25 04/13/20 24 04/13/2024 CBC Ig% 0.300 % 0.000- 1.500 Ig % >0.5 Indic ates possi ble Left Shift Not Available [address], [address], 04/13/2024 10:35:25 04/13/20 24 04/13/2024 CBC Ig# 0.030 0.000- 0.093 Not Available [address], [address], 04/13/2024 10:35:25 04/13/20 24 04/13/2024 CBC NRBC% 0.0 % 0.0-0. 2 Not Available [address], [address], 04/13/2024 10:35:25 04/13/20 24 04/13/2024 CBC NRBC# 0.000 0.000- 0.012 Not Available [address], [address], 04/13/2024 10:35:25 04/13/20 24 04/13/2024 COMP. METAB OLIC PANEL glucose 85 mg/dL 70-100 Not Available [address], [address], 04/13/2024 11:19:46 04/13/20 24 04/13/2024 COMP. METAB OLIC PANEL BUN 11 mg/dL 7-18 Not Available [address], [address], 04/13/2024 11:19:46 04/13/20 24 04/13/2024 COMP. METAB OLIC PANEL creatinine 0.9 mg/dL 0.8-1. 3 Not Available [address], [address], 04/13/2024 11:19:46 04/13/20 24 04/13/2024 COMP. METAB OLIC PANEL B/C 12.2 ratio Not Available [address], [address], 04/13/2024 11:19:46 04/13/20 24 04/13/2024 COMP. METAB OLIC PANEL GFR >=60ML /MIN mL/mi n normal >=60m L/min - Naomi l or midly reduc ed <60mL /min- Decre ased kidne y funct ion <15mL /min - Kidne y failu re [facility] calcu lates estim ated Glome rular Filtr ation Rate (eGFR ) using the Chron ic Kidne y Disea se Epide miolo gy Colla borat ion (CKD- EPI) Equat ion (Dhaval r et. al 2020) as recom tae d by the Natio nal Kidne y Found ation . eGFR is based on age, serum creat inine , and sex. CKD-E PI does not calcu late eGFR by race, does not apply to child arun (age <18 years ), and shoul d not be used in pregn nicky. Not Available [address], [address], 04/13/2024 11:19:46 04/13/20 24 04/13/2024 COMP. METAB OLIC PANEL sodium 140 mmol/ L 136-14 5 Not Available [address], [address], 04/13/2024 11:19:46 04/13/20 24 04/13/2024 COMP. METAB OLIC PANEL potassium 4.1 mmol/ L 3.5-5. 1 Not Available [address], [address], 04/13/2024 11:19:46 04/13/20 24 04/13/2024 COMP. METAB OLIC PANEL chloride 103 mmol/ L 96-107 Not Available [address], [address], 04/13/2024 11:19:46 04/13/20 24 04/13/2024 COMP. METAB OLIC PANEL anion gap 9.6 5.0-15 .0 Not Available [address], [address], 04/13/2024 11:19:46 04/13/20 24 04/13/2024 COMP. METAB OLIC PANEL CO2 27 mmol/ L 21-32 Not Available [address], [address], 04/13/2024 11:19:46 04/13/20 24 04/13/2024 COMP. METAB OLIC PANEL calcium 8.8 mg/dL 8.5-10 .3 Not Available [address], [address], 04/13/2024 11:19:46 04/13/20 24 04/13/2024 COMP. METAB OLIC PANEL total protein 7.0 g/dL 6.4-8. 2 Not Available [address], [address], 04/13/2024 11:19:46 04/13/20 24 04/13/2024 COMP. METAB OLIC PANEL albumin 3.2 g/dL 3.4-5. 0 low Not Available [address], [address], 04/13/2024 11:19:46 04/13/20 24 04/13/2024 COMP. METAB OLIC PANEL globulin 3.8 g/dL Not Available [address], [address], 04/13/2024 11:19:46 04/13/20 24 04/13/2024 COMP. METAB OLIC PANEL A/G 0.8 ratio 0.8-2. 0 Not Available [address], [address], 04/13/2024 11:19:46 04/13/20 24 04/13/2024 COMP. METAB OLIC PANEL total bilirubin 0.40 mg/dL 0.00-1 .00 Not Available [address], [address], 04/13/2024 11:19:46 04/13/20 24 04/13/2024 COMP. METAB OLIC PANEL AST 7 U/L 0-37 Not Available [address], [address], 04/13/2024 11:19:46 04/13/20 24 04/13/2024 COMP. METAB OLIC PANEL ALT 11 U/L 6-63 Not Available [address], [address], 04/13/2024 11:19:46 04/13/20 24 04/13/2024 COMP. METAB OLIC PANEL alk. phos. 66 U/L 50-136 Not Available [address], [address], 04/13/2024 11:19:46 04/13/20 24 04/13/2024 LIPID PANEL cholesterol 196 mg/dL <200 mg/dl Alejandrina able 200-2 39 mg/dl Borde rline High >240 mg/dl High Not Available [address], [address], 04/13/2024 11:19:46 04/13/20 24 04/13/2024 LIPID PANEL triglyceride s 81 mg/dL <150 mg/dL Naomi l 150-1 99 mg/dL Borde rline High 200-4 99 mg/dL High >500 mg/dL Very High Not Available [address], [address], 04/13/2024 11:19:46 04/13/20 24 04/13/2024 LIPID PANEL direct HDL 54 mg/dL <40 mg/dl - Major Risk for CHD >60 mg/dl - Negat sue Risk for CHD Not Available [address], [address], 04/13/2024 11:19:46 04/13/20 24 04/13/2024 LDL - CALCU LATED LDL - calculated 125.8 RISK CATEG ORY LDL GOAL _ CHD or CHD Risk Equiv alent s <100 mg/dl (10-y ear risk >20%) 2+ Risk Facto rs <130 mg/dl (10-y ear risk <= 20%) 0-1 Risk Facto r??? <160 mg/dl ??? Almos t all peopl e with 0-1 risk facto r have a 10 year risk <10%, thus 10 year risk asses ment in peopl e with 0-1 risk facto r is not mono lou. Not Available [address], [address], 04/13/2024 11:19:47 06/30/20 24 06/30/2024 POC HCG HCG POC NEGATI VE Not Available [facility] [address] [place] [address], [address], 06/30/2024 09:30:18 06/30/20 24 06/30/2024 BACTE RIAL VAGIN OSIS/ VAGIN ITIS bv, RNA BV POS negati ve abnormal The aptim a BV assay is utili zed for the detec tion of ribos omal RNA from bacte dorothea assoi cated with bacte rial vagin osis( BV), inclu ding Lacto bacil lis (L. gasse ri, L. crisp stus, and L. jense stephanie), Gardn erell a vagin anthony, and Atopo bium vagin ae. The assay repor ts a quali tativ e resul t for BV and does not repor t resul ts for indiv idual organ isms. Not Available [address], [address], 06/30/2024 16:04:09 06/30/20 24 06/30/2024 BACTE RIAL VAGIN OSIS/ VAGIN ITIS yane species group (C. albicans, C. tropicalis, C. parapsilosis ), RNA C. SPP NEG negati ve normal Not Available [address], [address], 06/30/2024 16:04:09 06/30/20 24 06/30/2024 BACTE RIAL VAGIN OSIS/ VAGIN ITIS yane glabrata, RNA C. GLA NEG negati ve normal Not Available [address], [address], 06/30/2024 16:04:09 06/30/20 24 06/30/2024 BACTE RIAL VAGIN OSIS/ VAGIN ITIS trichomonas vaginalis, RNA TRICH NEG negati ve normal Not Available [address], [address], 06/30/2024 16:04:09 Result Notes None recorded. Problems Name Problem SNOMED Code Status Onset Date Resolution Date Notes Provider Name and Address Organization Details Recorded Time Benign hypertens ion 23282364 Active Mercedes Ca NP [address] [place] [address], [phone] , [facility] 3 11:13:54 Multiple joint pain 63969504 Active takes tramadol. Sees Dr. Suarez. 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 Mercedes Ca NP [address] [place] [address], [address] , [facility] 3 11:13:54 Low back pain 292991606 Active Mercedes Ca NP [address] [place] [address], [address] , [facility] 3 11:13:54 Problem Notes None recorded. Procedures Surgical History Date Name Laterality Status Provider Name and Address Organization Details Recorded Time 10/31/19 25 Smoking cessation counseling completed Siria Decker CMA [facility] 10/27/2024 10:31:47 03/26/20 23 Smoking cessation counseling completed Siria Decker CMA [facility] 03/26/2023 15:38:37 12/18/19 23 Smoking cessation counseling completed Crystal Spears CMA [facility] 12/17/2022 11:03:44 10/01/19 23 Smoking cessation counseling completed Siria Decker CMA [facility] 10/01/2022 10:43:16 04/06/20 22 Smoking cessation counseling completed Siria Venne, [facility] 04/06/2022 08:39:49 03/16/20 22 Smoking cessation counseling completed Siria Decker [facility] 03/16/2022 13:38:29 05/23/20 21 Smoking cessation counseling completed Ansley Hinton NP [address] [place], [address], [facility] 05/23/2021 22:56:24 02/21/20 21 Smoking cessation counseling completed Siria Decker [facility] 02/20/2021 13:26:32 08/06/20 20 Smoking cessation counseling completed Ansley Hinton NP [address] [place] [address], [phone], [facility] 08/06/2020 10:14:50 01/25/20 20 Smoking cessation counseling completed Sirai Decker [facility] 01/25/2020 09:58:05 07/31/20 19 Smoking cessation counseling completed Siria Decker [facility] 07/31/2019 11:18:39 07/28/20 19 Smoking cessation counseling completed Nitesh Suarez MD [address] [place] [address], [phone], [facility] 07/28/2019 15:28:03 05/29/20 19 Smoking cessation counseling completed Nitesh Suarez MD [address] [place] [address], [phone], [facility] 05/31/2019 08:46:53 03/04/20 19 Smoking cessation counseling completed [facility] 03/04/2019 11:45:18 03/04/20 19 [facility] 03/04[facility] 11:45:18 03/04/20 19 POC hCG Testing completed Laura Kulkarni [facility] 03/04/2019 12:12:41 01/07/20 19 Smoking cessation counseling completed Nitesh Suarez MD [address] [place] [address], [phone], [facility] 01/06/2019 18:56:41 12/30/19 19 Smoking cessation counseling completed Siria Decker [facility] 12/29/2018 09:53:05 12/17/19 19 Smoking cessation counseling completed Priscilla Sawant LPN [facility] 12/16/2018 13:55:00 07/04/20 18 Smoking cessation counseling completed Siria Decker [facility] 07/04/2018 10:42:38 04/25/20 18 Smoking cessation counseling completed Leonor Noriega [facility] 04/25/2018 09:55:00 12/24/19 18 Smoking cessation counseling completed Siria Decker [facility] 12/23/2017 09:34:21 06/13/20 17 Smoking cessation counseling completed Priscilla Sawant [facility] 06/13/2017 10:51:19 03/11/20 17 Smoking cessation counseling completed Priscilla Sawant [facility] 03/11/2017 14:35:31 03/04/20 17 Smoking cessation counseling completed Jan Perez [facility] 03/04/2017 16:24:31 03/04/20 17 Carbon Monoxide Testing completed Jan Perez CRANE MANAGER [facility] 03/04/2017 16:24:31 12/15/19 17 Smoking cessation counseling completed Noy Saavedra [facility] 12/14/2016 10:23:15 12/15/19 17 Carbon Monoxide Testing completed Noy Saavedra [facility] 12/14/2016 10:26:34 09/28/19 17 Smoking cessation counseling completed Ariel [facility] 09/28/2016 10:51:25 09/28/19 17 Carbon Monoxide Testing completed Ariel [facility] 09/28/2016 11:06:25 09/28/19 17 POC Strep Testing completed [facility] 09/28/2016 11:06:29 10/24/19 16 Smoking cessation counseling completed Noy Saavedra [facility] 10/24/2015 15:29:53 01/25/20 15 completed Noy Sandoval NP [address] [place] [address], [phone], [facility] 02/08/2015 21:42:20 12/23/19 15 Smoking cessation counseling completed Maisha Ron [facility] 12/22/2014 14:37:09 11/20/19 15 Smoking cessation counseling completed Maisha Ron [facility] 11/19/2014 09:53:14 08/27/19 15 Smoking cessation counseling completed Maisha Ron [facility] 08/27/2014 09:13:45 06/21/20 14 Smoking cessation counseling completed Maisha Ron [facility] 06/21/2014 11:52:26 02/21/20 12 Treatment and Advice completed Gloria Gonzalez Mph, LPT [address] [place], [address], [facility] 02/21/2012 15:49:02 02/12/20 12 Treatment and Advice completed Gloria Gonzalez Mph, LPT [address] [place], [address], [facility] 02/12/2012 14:06:28 02/05/20 12 Smoking cessation counseling completed Gino Mcclure [facility] 02/05/2012 10:49:24 Imaging Results None recorded. Procedure Notes None recorded. Medical Equipment None Reported. Allergies Allergen ID Allergen Name Allergen Category Reaction Reaction Severity Criticality Documentation Date Start Date Code Code System Note Provider Name and Address Organization Details Recorded Time [id number] strawberr y allergeni c extract food Not available Not available Not available 03/11/2017 78561 4 RxNorm Pt no longe r aller gice to straw berri es NMT, not aller gic humir a power ed it [facility] 2 10:07:35 78937 Erythroci n medicatio n anaphylax is Not available Not available 10/21/2009 45915 3 RxNorm Not Available [facility] 1 06:05:20 186214 pumpkin allergeni c extract food,medi cation Not available Not available Not available 06/30/2024 47212 9 RxNorm Dary Bhavik [facility] 4 09:17:35 54673 erythromy guanako medicatio n anaphylax is Not available Not available 07/14/2010 4053 RxNorm Not Available [facility] 1 06:05:41 Medications Name Sig Start Date Stop Date Status Note LastModified by Organization Details LastModified Time amoxicill in 500 mg capsule TAKE 1 CAPSULE BY MOUTH THREE TIMES DAILY UNTIL GONE 03/16 completed Not Available Not Available Not Available verapamil ER (HS) 180 mg tablet,ex tended release 24 hr Take 1 tablet every day by oral route. 2009 active Not Available Not Available Not Avai lable verapamil ER (HS) 240 mg tablet,ex tended release 24 hr Take 1 tablet every day by oral route. 2009 active Not Available Not Available Not Avai lable Augmentin 875 mg-125 mg tablet Take 1 tablet every 12 hours by oral route for 10 days. 07/17 completed Not Available Not Available Not Available bupropion HCl SR 150 mg tablet,12 hr sustained -release TAKE 1 TABLET BY MOUTH TWICE DAILY active Not Available Not Available No t Available gabapenti n 600 mg tablet Take 1 tablet every day by oral route at bedtime. 05/29 completed Not Available Not Available Not Available etodolac 200 mg capsule TAKE 1 CAPSULE BY MOUTH TWICE DAILY 10/01 completed not taking 09/26/21 ramón Not Available Not Available Not Available triamcino lone acetonide 0.5 % topical cream APPLY CREAM TOPICALL Y TO AFFECTED AREA THREE TIMES DAILY FOR 7 DAYS active Not Available Not Available No t Available ibuprofen 800 mg tablet TAKE 1 TABLET BY MOUTH THREE TIMES DAILY NEEDED active pt isnot taking 10/30/24 mp Not Available Not Available Not Available Lidocaine Viscous 2 % mucosal solution Take 10 millilit ers gargle and spit out by oral route every 2-4 hours as needed for sore throat. 12/14 completed Not Available Not Available Not Available tizanidin e 4 mg tablet TAKE 1 TO 2 TABLETS BY MOUTH AT BEDTIME NEEDED FOR MUSCLE SPASM active Not Available Not Available No t Available sumatript an 100 mg tablet Take 1 tablet (100 mg) by oral route once with fluids as early as possible after the onset of a migraine attack;m ay repeat after 2 hours ifheadac he returns, not to exceed 200mg in 24hrs 12/23 completed Not Available Not Available Not Available meloxicam 15 mg tablet Take 1 tablet every day by oral route. active Not Available Not Available No t Available ibuprofen 200 mg capsule Take 1 capsule every 6 hours by oral route. active Not Available Not Available No t Available metronida zole 0.75 % (37.5 mg/5 gram) vaginal gel INSERT 1 APPLICAT ORFUL EVERY DAY BY VAGINAL ROUTE AT BEDTIME FOR 5 DAYS 10/30 completed pt not taking 10/30/24 mp Not Available Not Available Not Available ondansetr on HCl 4 mg tablet 09/28 completed Not Available Not Available Not Available prednison e 20 mg tablet Day 1 - Take 3 tablets onceDay 2 - Take 3 tablets onceDay 3 - Take 2 tablets onceDay 4 - Take 2 tablets onceDay 5 - Take 1 tablet onceDay 6 - Take 1/2 tablet once 07/04 completed Not Available Not Available Not Available rizatript an 10 mg tablet TAKE 1 TAB TWICE A WEEK NEEDED active Not Available Not Available No t Available sulfasala zine 500 mg tablet,de layed release TAKE 1 TABLET BY MOUTH ONCE DAILY FOR 5 DAYS THEN TAKE 1 TABLET TWICE DAILY FOR 5 DAYS THEN TAKE 2 TABLETS TWICE DAILY THEREAFT ER 07/31 completed not taking d/t causing migraine s Not Available Not Available Not Available Pyridium 200 mg tablet Take 1 tablet 3 times a day by oral route as needed for 2 days. 12/05 completed Not Available Not Available Not Available penicilli n V potassium 500 mg tablet TAKE 2 TABLETS BY MOUTH TO START THEN 1 TABLET 4 TIMES DAILY UNTIL GONE 04/12 completed Not Available Not Available Not Available nifedipin e ER 30 mg tablet,ex tended release Take 1 tablet every day by oral route for 30 days. active Not Available Not Available No t Available acetamino phen 300 mg-codein e 30 mg tablet TAKE 1 TABLET BY MOUTH THREE TIMES DAILY NEEDED 05/29 completed Not Available Not Available Not Available tramadol 50 mg tablet TAKE 1 TO 2 TABLETS BY MOUTH TWICE DAILY active Not Available Not Available No t Available zolmitrip springer 5 mg tablet Take one tab 2x/wk as needed. 2014 active CHANGED TO RIZATRIP SPRINGER BY RADHA ON 11/19/14 Not Available Not Available Not Available dexametha sone 0.5 mg/5 mL oral solution SWISH AND SPIT 5 ML BY MOUTH EVERY 6 TO 8 HOURS 10/30 completed Not Available Not Available Not Available Macrobid 100 mg capsule Take 1 capsule every 12 hours by oral route for 5 days. 12/05 completed Not Available Not Available Not Available magnesium oxide 400 mg (241.3 mg magnesium ) tablet Take 1 tablet by mouth once daily 08/06 completed Not taking 04/12/20 Not Available Not Available Not Available baclofen 10 mg tablet Take 1 or 2 po q hs. 09/28 completed Not Available Not Available Not Available indometha guanako 50 mg capsule 1 cap po four times per day 12/23 completed Not Available Not Available Not Available diclofena c potassium 50 mg tablet Take 1 tablet twice a day by oral route for 10 days. 02/14 completed Not Available Not Available Not Available gabapenti n 300 mg capsule TAKE 3 CAPSULES BY MOUTH AT BEDTIME active Not Available Not Available No t Available omeprazol e 20 mg capsule,d elayed release TAKE 1 CAPSULE BY MOUTH TWICE DAILY BEFORE MEAL(S) active Not Available Not Available No t Available etodolac 400 mg tablet TAKE 1 TABLET BY MOUTH TWICE DAILY NEEDED FOR PAIN active Not Available Not Available No t Available gabapenti n 100 mg capsule 1 po q hs for 3 d, then 2 po q hs for 3 days, then 3 po hs for 3 days then 4 po q hs for 3 days, then 5 po qhs 12/23 completed Not Available Not Available Not Available ergocalci ferol (vitamin D2) 1,250 mcg (50,000 unit) capsule active Not Available Not Available Not Available ibuprofen 600 mg tablet TAKE 1 TABLET BY MOUTH THREE TIMES DAILY NEEDED active Not Available Not Available No t Available norethind hipolito (contrace ptive) 0.35 mg tablet TAKE 1 TABLET BY MOUTH ONCE DAILY active Not Available Not Available No t Available fluocinon frank 0.05 % topical cream Apply 2x/d by topical route. 12/16 completed Not Available Not Available Not Available indometha guanako ER 75 mg capsule,e xtended release Take 1 capsule twice a day by oral route. 12/18 completed Not Available Not Available Not Available etodolac 500 mg tablet TAKE 1 TABLET BY MOUTH TWICE DAILY 12/22 completed TID Not Available Not Available Not Available piroxicam 20 mg capsule Take 1 capsule twice a day by oral route. 05/29 completed Stopped 03/04/19 DO vomiting Not Available Not Available Not Available verapamil ER 240 mg 24 hr capsule,e xtended release TAKE 1 CAPSULE BY MOUTH ONCE DAILY active Not Available Not Available No t Available Flexeril 10 mg tablet Take 1 tablet twice a day by oral route for 10 days. 02/14 completed Not Available Not Available Not Available Dulcolax (bisacody l) 5 mg tablet,de layed release Take 2 tablets twice a day by oral route. active Not Available Not Available No t Available oxycodone 5 mg tablet Take 1 tablet every 4 hours by oral route. active Not Available Not Available No t Available Vitamin D3 25 mcg (1,000 unit) capsule Take 1 capsule twice a week by oral route. active pt taking Not Available Not Available Not Available Tri-Sprin david (28) 0.18 mg(7)/0.2 15 mg(7)/0.2 5 mg(7)-35 mcg tablet TAKE ONE TABLET BY MOUTH EVERY DAY, NEED TO SCHEDULE APPOINTM ENT active Not Available Not Available No t Available 1 tab daily 10/26 completed Not Available Not Available Not Available vitamin C91-xkple acid 12/14 completed Not Available Not Available Not Available Humira Pen 40 mg/0.8 mL subcutane ous kit 08/09 completed Not Available Not Available Not Available Flexall 10 milgrams tid active Not Available Not Available No t Available Humira(CF ) 40 mg/0.4 mL subcutane ous syringe kit INJECT 0.4ML SUBCUTAN EOUSLY EVERY 10 DAYS active pt only uses pen 10/30/24 mp Not Available Not Available Not Available Humira(CF ) Pen 40 mg/0.4 mL subcutane ous kit INJECT 40 MG UNDER THE SKIN EVERY 10 DAYS active Not Available Not Available No t Available Vitals Date Recorded Body height Body mass index (BMI) Body weight Heart rate Systolic blood pressure Diastolic blood pressure Provider Name and Address Organization Details Last Updated DateTime 3 157.48 cm 35.1 kg/m2 42108.7 4 g 60 /min 118 mm[Hg] 78 mm[Hg] Crystal Spears, [facility] 3 11:05:05 Date Recorded Body height Body mass index (BMI) Body weight Heart rate Systolic blood pressure Diastolic blood pressure Provider Name and Address Organization Details Last Updated DateTime 3 157.48 cm 34.2 kg/m2 95945.7 7 g 60 /min 122 mm[Hg] 80 mm[Hg] Siria Decker [facility] 3 15:46:38 Date Recorded Body weight Body mass index (BMI) Body height Systolic blood pressure Diastolic blood pressure Provider Name and Address Organization Details Last Updated DateTime 04/17/2024 58264.06 g 34.6 kg/m2 157.48 cm 128 mm[Hg] 80 mm[Hg] [facility] 13:48:04 Date Recorded Body height Body mass index (BMI) Body weight Heart rate Systolic blood pressure Diastolic blood pressure Provider Name and Address Organization Details Last Updated DateTime 4 157.48 cm 35.3 kg/m2 89629.3 3 g 60 /min 120 mm[Hg] 80 mm[Hg] [facility] 09:19:17 Date Recorded Body height Body mass index (BMI) Body weight Oxygen saturation Oxygen saturation in Arterial blood by Pulse oximetry Heart rate Systolic blood pressure Diastolic blood pressure Provider Name and Address Organization Details Last Updated DateTime 5 157.48 cm 35.3 kg/m2 32817.7 3 g 99 % 99 % 65 /min 128 mm[Hg] 80 mm[Hg] Rossi Zhao [facility] 5 08:36:35 Social History Question Answer Notes LastModified by Organizat ion Details LastModified Time Tobacco Smoking Status Current Every Day Smoker 1/4 cigarettes daily 05/23/21 NMT 08/06/20 srp <1ppd 09/28/16 Ila Wyatt [facility]21 14:01:06 Do You Have An Advance Directive? No INFO GIVEN [email or web address] Information not available 07/14/2010 What Is Your Level Of Alcohol Consumption? None Information not available 12/22/2014 Do You Wear A Helmet When Biking? Yes Cant Bike Information not available 12/22/2014 What Is Your Level Of Caffeine Consumption? Occasional Cola Information not available 01/03/2015 How Much Tobacco Do You Chew? 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 GLUTENFREE Information not available 01/03/2015 Which Illicit Or Recreational Drugs Have You Used? None Information not available 01/03/2015 Do You Or Have You Ever Used E-cigarettes Or Vape? Never Used Electronic Cigarettes Information not available 08/06/2020 Education 12 [email or web address] Information not available 07/12/2011 Have There Been Any Changes To Your Family Or Social Situation? No Information not available 04/17/2024 When Did You Quit Smoking? 6-10yearssinc [email or web address] Information not available 01/03/2015 How Many Days In The Past Year Have You Had A Heavy Drinking Consumption (4+ Female, 5+ Male)? 0 Information not available 12/22/2014 Are There Any Guns Present In Your Home? Yes Information not available 12/22/2014 Live Alone Or With Others? With Others . His Parents Live Upstairs. [email or web address] Information not available 10/21/2009 Have Your Ever Had Any Service? No Information not available 10/30/2024 Patient Has Health Care Proxy Signed And In Chart Yes [email or web address] Information not available 04/20/2024 Mar[facility] Status [email or web address] Information not available 02/20/2021 Mosquito Repellent Used Routinely Yes Information not available 12/22/2014 What Was The Date Of Your Most Recent Tobacco Screening? 10/30/2024 Information not available 10/30/2024 How Many Children Do You Have? 1 Venkat 02/02/15. [email or web address] Information not available 02/20/2021 What Is Your Current Pack Years? 10packyears Started Smoking At 19. 5years Smoked 1/2ppd . Prior To That Smoke 1ppd., 3 A Day 09/26/21 Ramón [email or web address] Information not available 09/26/2021 What Is Your Relationship Status? From Hernandez Information not available 10/01/2022 Do You Use Your Seat Belt Or Car Seat Routinely? Yes [email or web address] Information not available 04/17/2024 Seat Belts Used Routinely Yes Information not available 12/22/2014 Are You Sexually Active? No Information not available 10/01/2022 Smoke Alarm In Home Yes Information not available 12/22/2014 Do You Have Smoke And Carbon Monoxide Detectors In Your Home? Yes [email or web address] Information not available 04/17/2024 Do You Or Have You Ever Used Smokeless Tobacco? Never Used Smokeless Tobacco Information not available 08/06/2020 How Much Tobacco Do You Smoke? 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 She Cares For Him. [facility] Information not available 02/20/2021 Do You Use Any Illicit Or Recreational Drugs? No [email or web address] Information not available 04/17/2024 Do You Use Sunscreen Routinely? Yes Information not available 12/22/2014 Do You Or Have You Ever Used Any Other Forms Of Tobacco Or Nicotine? No Information not available 05/23/2021 Sex: Unknown Functional Status None recorded. Mental Status None recorded. Family History Relationship Description Onset Age of this Age Resolved Age Notes LastModified by Organization Details LastModified Time Sister Asthma Not available 12:52:11 Mother Hyperlipidem ia Not available 2014 12:52:11 Mother Hypertensive disorder previo usly record ed as Hypert ension Not available 05/27/2015 12:52:11 Mother Mental disorder ?undia gnosed (previ ously record ed as Psychi atric Disord ers) Not available 05/27/2015 12:52:11 Mother Diabetes mellitus pre-DM (previ ously record ed as Diabet es) Not available 05/27/2015 12:52:11 Mother Peptic ulcer Not availa ble 05/27/2015 12:52:11 Mother Overweight Not availabl e 05/27/2015 12:52:11 Mother Seizure from drug use (previ ously record ed as Seizur es) Not available 05/27/2015 12:52:11 Father Hypertensive disorder previo usly record ed as Hypert ension Not available 05/27/2015 12:52:11 Father Malignant tumor of prostate 73 previo usly record ed as Cancer - Prosta te Not available 05/27/2015 12:52:11 Maternal Grandmother Carcinoma of breast Not available 2014 12:52:11 Notes:Has 9 sibs (full, half & step). Maternal aunt w some kind of nasal- pharyngeal cancer. Grandmother Psoriatic arthritis Medical History Condition Response Polycystic Ovary Syndrome Y Peptic Ulcer Disease Y Kidney Stones Y RHEUMATOLOGIC Migraine Headaches Y Hypertension Y Asthma Y psoriasis Gynecological History Statement/Question Response Menses Monthly N History of Abnormal Pap Y Current Control Method BCPs Age at Menarche 12 Obstetrics History GPAL:G 0 P 0 0 0 0 Immunizations Vaccine Type Date Status Note Provider Nam e and Address Organization Details Recorded Time Td(adult) unspecified formulation 0 completed Not Available [facility] 09/26/2019 02:10:36 Influenza, split virus, quadrivalent, PF 9 completed Not Available [facility] 09/12/2019 02:24:36 Pneumococcal conjugate PCV 13 0 completed Ky Dixon MD [address] [place] [address], [id number], [facility] 11/02/2019 12:57:53 Tdap 3 completed Crystal Spears CMA null, [facility] 12/17/2022 13:35:57 COVID-19, mRNA, LNP-S, PF, 30 mcg/0.3 mL dose 1 completed Ila Wyatt CMA null, [facility] 05/23/2021 14:01:58 COVID-19, mRNA, LNP-S, PF, 30 mcg/0.3 mL dose 1 completed Ila Wyatt CMA null, [facility] 05/23/2021 14:02:16 COVID-19, mRNA, LNP-S, PF, 30 mcg/0.3 mL dose 2 completed Siria Decker CMA null, [facility] 09/04/2021 08:35:11 Past Encounters Encounter ID Performer Location Encounter Start Date Encounter Closed Date Diagnosis/Indication Diagnosis SNOMED-CT Code Diagnosis ICD10 Code Diagnosis Note [id number] , [facility], OFFICE [address] [facility] [place] [place] [address] 10/21/2009 13:57:16 10/27/2009 08:36:03 [id number] Giovanni Stuart LPN , [facility], OFFICE [address] [facility] [place] [place] [address] 02/01/2010 15:07:23 02/06/2010 13:51:34 [id number] LING Encinas, [facility], OFFICE [address] [facility] [place] [place] [address] 03/01/2010 14:44:28 03/08/2010 09:45:37 [id number] DONIS [facility], OFFICE [address] [facility] [place] [place] [address] 07/14/2010 09:49:08 07/19/2010 10:21:34 [id number] ZAIRE Marks, [facility], OFFICE [address] [facility] [place] [place] [address] 07/04/2011 14:42:15 07/04/2011 15:56:39 [id number] , [facility], OFFICE [address] [facility] [place] [address] 02/05/2012 10:45:49 02/05/2012 11:22:38 [id number] Physical Therapy, [facility] [address] [facility] [place] [place] [address] 02/12/2012 13:16:25 02/12/2012 14:44:16 [id number] Physical Therapy, [facility] [address] [facility] [place] [place] [address] 02/21/2012 14:44:48 02/22/2012 07:49:25 [id number] KAREN Torres, [facility], OFFICE [address] [facility] [place] [address] 11/19/2012 08:04:56 11/19/2012 08:45:30 [id number] Odilia Menendez , [facility], OFFICE [address] [place] [address] 06/21/2014 11:29:11 06/21/2014 12:35:54 Gastroesophageal reflux disease 077527070 [id number] Ky Dixon MD , [facility], OFFICE [address] [place] [address] 07/07/2014 16:04:48 07/09/2014 08:08:19 Sinusitis 14691971 [id number] , [facility], OFFICE [address] [place] [address] 08/27/2014 08:57:00 08/27/2014 09:53:39 Adult health examination [id number] see Risk Assessment and Lifestyle Change Counseling section above Counseling [id number] Tobacco user 305037753 Arthritis 2837959 Asthma 952992961 Migraine 17595147 Benign hypertension 07442159 [id number] Nicole Ferrer , [facility], OFFICE [address] [place] [address] 11/19/2014 09:44:28 11/19/2014 10:22:25 Weight increased 939687906 Eruption 400656007 Migraine 77492072 Sprain of ankle 85339421 Amenorrhea 62456821 [id number] ZAIRE Marks , [facility], OFFICE [address] [place] [address] 12/22/2014 14:16:32 12/22/2014 15:07:48 Tobacco user 719880430 Joint pain 22481826 Amenorrhea 16080285 [id number] Giovanni Stuart LPN , [facility], OFFICE [address] [place] [address] 01/03/2015 09:51:09 01/03/2015 12:45:00 Discharge from nipple [id number] very unanticipa yumiko , will return in 48 hours and confirm w serumHcG Administra tion of pneumococcal vaccine 50158852 Benign hypertension 33341945 [id number] , [facility], OFFICE [address] [place] [address] 01/05/2015 09:49:39 01/05/2015 11:18:27 [id number] feels well, approx. 6 weeks on 01/04/15 OB referral given Encouraged to quit smoking and advised there is no safe amt of alcohol in [id number] KRISTEN Soliz, [facility], OFFICE [address] [place] [address] 02/07/2015 15:03:35 02/07/2015 17:12:26 care [id number] c section incision clean and dry, steri strips intact. [id number] KRISTEN Soliz, [facility], OFFICE [address] [place] [address] 02/14/2015 11:52:43 02/14/2015 12:34:09 care [id number] incision clean, smll area of redness and ss drng on pad, d/w Dr Pearce and seen as well. Will have follow up w midwives, s/s infection and reasons to return sooner reviewed [id number] KRISTEN Soliz, [facility], OFFICE [address] [place] [address] 03/23/2015 09:27:00 03/23/2015 11:11:22 care [id number] was anemic post C section, will re check CBC and iron studies started taking OCP last week [id number] ZAIRE Marks [facility], [facility] [address] [place] [address] 04/08/2015 09:00:18 04/11/2015 08:05:36 Multiple joint pain 63507990 This 29 y/o woman has had years of generalize d arthralgia . She had no physical findings today suggesting synovitis or joint deformity, limitation . She does have mild generalize d hypermobil ity, but probably not enough to account for symptoms. She does describe some inflammato ry characteri stic to her back pain. It wakes her at night, there is some relatively mild degree of AM stiffness, and she describes gel phenomenon involving the back. She cannot sit for more than an hour. However, also describes symptoms of mechanica l low back pain with worsening symptoms with activity. I am unable to make any specific diagnosis today. We should update labs, should check HLA B27. I would like to give her a very short trial on high dose NSAID. Note is taken of her hx PUD, but I asked her to double dose omeprazole and try Indocin for 4-5 days. Told to d/c immediatel y if significan t GI sx's or headache. It would be helpful for her to see Dr De La Cruz again if her rash flares up. If she is confirmed to have psoriasis, it may influence treatment choices. I would like her to report result on Indocin trial . Although she does not have typical allodynia and she describes joint more than muscle pain, I think there is probably a component of myofascia l pain syndrome . Sleep is disrupted and non restorativ e. In future could consider addressing sleep issues. [id number] Madeline Núñez , [facility], OFFICE [address] [place] [address] 04/26/2015 10:50:36 04/26/2015 11:33:34 Nasopharyngitis 19784543 [id number] [facility], [facility] [address] [place] [address] 05/27/2015 10:40:25 05/30/2015 12:05:38 Multiple joint pain 33743131 M25.50 This 29 y/o woman has had years of generalize d arthralgia . She had no physical findings today suggesting synovitis or joint deformity, limitation . She does describe some inflammato ry characteri stic to her back pain. It wakes her at night, there is some relatively mild degree of AM stiffness, and she describes gel phenomenon involving the back. She also does have mild generalize d hypermobil ity, but probably not enough to account for symptoms. I continue to have some suspicious that there may be a significan t inflammato ry basis to her symptoms here, possibly something in the spondyloar thropathy category. She has possible psoriasis suggesting possible psoriatic spondyliti s etc. I would like to try her on an alternate anti-infla mmatory with longer action. Try meloxicam 15 mg daily. I discussed again she should pay attention to degree of morning stiffness, gel phenomenon etc. If she is intolerant , or sees no improvemen t, I have instructed her to call. I would probably change her to high-dose etodolac. There may also be some component of myofascial pain syndrome accounting for more of her generalize d symptoms. We can consider addressing this after we have further pursue the possibilit y of spondyloar thropathy. [id number] Nitesh Suarez MD Rheumatol [address] [address] 06/16/2015 11:13:35 06/16/2015 15:39:59 Multiple joint pain 10863986 M25.50 I continue to have some suspicious that there may be a significan t inflammato ry basis to her symptoms here, possibly something in the spondyloar thropathy category. She has possible psoriasis suggesting possible psoriatic spondyliti s etc. She saw some considerab le improvemen t with Indocin. Meloxicam not effective. We will try her on high dose etodolac, but if this also is not effective, will go back to indomethac in ant higher dose: 50mg QID. There may well also be some component of myofascial pain syndrome accounting for more of her generalize d symptoms. Try adding tizanidine . We can consider addressing this after we have further pursue the possibilit y of spondyloar thropathy. [id number] Nitesh Suarez MD [facility] [address] [address] 07/26/2015 14:06:47 07/26/2015 14:45:59 Multiple joint pain 12217875 M25.50 Marked improvemen t on the high dose Etodolac. Inflammat ory back sxs dramatical ly better. If she misses a dose of NSAID, prompt return of sxs. Continue to supect something in the spondyloar thropath catagory, HLA B27 negative. Will check labs on high dose NSAID. She does get occasional GI sx's despite concurrent PPI. Suggested take additional PRN ranitidine . Encouraged exercise and weight loss. Long-term drug therapy 092742691 Z79.1 [id number] Lenora Burnett , [facility], OFFICE [address] [place] [address] 10/24/2015 14:53:25 10/24/2015 16:01:23 Adult health examination 896297504 Z00.00 see Risk Assessment and Lifestyle Change Counseling section above Counseling 827034826 Z71 .9 Nicotine dependence 5629 4008 Z87.891 Tobacco user 344776718 Z 72.0 Female sterilization 608 44091 Z30.2 [id number] Malini Hare MD , [facility], OFFICE [address] [place] [address] 11/03/2015 13:45:05 11/03/2015 14:26:53 Strain of muscle of chest wall 135372703 S29.011A my impression is that this swelling and pain is due to a pulled pectoral muscle and possibly other related muscles in the chest wall. this is probably related to lifting the baby as she recalls no trauma. plan: Use ice packs several times a day the first 3-4 days, use the usual pain medication s which are noted above. Expect the entire problem to be gone in 3-4 weeks. It can last longer and that would not be unusual but if it is lasting longer we would want you to return in a at the four-week point. If things go very smoothly I would recommend a follow-up just for a breast exam in 2 months to make sure there is nothing underlying going on. we did discuss that there is a family history of breast cancer in the maternal grandmothe r and 2 maternal aunts. [id number] Lenora Lex , [facility], OFFICE [address] [place] [address] 01/04/2016 09:17:38 01/04/2016 14:30:26 Eruption [id number] [facility] [id number] Nitesh Suarez MD Rheumatol [facility], [facility] [address] [place] [address] 01/25/2016 09:49:30 01/26/2016 06:21:43 Multiple joint pain 69210150 M25.50 Marked improvemen t on the high dose Etodolac. Inflammat ory back sxs dramatical ly better. If she misses a dose of NSAID, prompt return of sxs. I continue to suspect something in the spondyloar thropath catagory, HLA B27 negative. Continue etodolac 400 TID. Today she is describing what sound much more like mechanica l low back pain. It is clearly worse towards end of day. Describes difficulty falling asleep and some difficulty with sleep maintenanc e. no excessive daytime somnolence . Etodolac helping with inflammati on. Continue Try changing to Baclofen for sleep promotion and muscular spasm. Update labs including ESR and CRP. Long-term drug therapy 299029229 Z79.1 Update labs. Low back pain 966243596 M54.5 Mixed picture of inflammat ory and mechanica l LBP. Etodolac helping with inflammati on. Try changing to Baclofen for sleep promotion and muscular spasm. [id number] ANTIONETTE Quintanilla , [facility], OFFICE [address] [place] [address] 09/28/2016 10:43:12 09/28/2016 12:37:29 Acute upper respiratory infection 38370900 J06.9 Educated patient that URI is a viral illness of the upper airways. It is not bacterial and does not benefit from antibiotic s. Average duration of URI is 7-10 days but in a recent trial, treatment at 7-10 days of illness with antibiotic s, intranasal steroids, or placebo did not alter natural history at 3 weeks. Recommende d symptomati c treatments including NSAIDS, semi-uprig ht sleep position, antihistam law at HS, limited course of nasal sympathomi metics and/or cough syrups, and nasal saline rinses with soft squeeze bottle or Neti pot. Return for fevers > 101 for 3 days, worsening sinus pain, or failure to resolve in 2-4 weeks. Cigarette smoker 3678812 7 F17.210 Tobacco user 462682866 Z 72.0 has been able to cut back for this illness, but not sure she's ready to quit Pain in throat 048220284 R07.0 [id number] Ky Dixon MD , [facility], OFFICE [address] [place] [address] 12/14/2016 10:15:27 12/17/2016 13:07:07 Cigarette smoker 43710227 F17.210 Benign hypertension 1072 5009 I10 Migraine 34876398 G43.90 9 Multiple joint pain 3567 8005 M25.50 [id number] Noy Saavedra , [facility], OFFICE [address] [place] [address] 03/04/2017 16:08:50 03/04/2017 16:59:21 Adult health examination 958681884 Z00.00 see Risk Assessment and Lifestyle Change Counseling section above Counseling 056263431 Z71 .9 Cigarette smoker 4240251 7 F17.210 Multiple joint pain 3567 8005 M25.50 Intolerant of cold 91624 000 R68.89 Migraine 21547593 G43.90 9 Benign ess ential hypertension 1528269 I10 [id number] Nitesh Suarez MD Rheumatol [address] [place] [address] 03/11/2017 14:24:26 03/12/2017 07:41:32 Multiple joint pain 68025597 M25.50 Marked improvemen t on Etodolac. Inflammat ory back sxs dramatical ly better. If she misses a dose of NSAID, prompt return of sxs. HLA B27 negative. Continue etodolac 400 TID. She also is describing what sound much more like mechanica l low back pain. It is clearly worse towards end of day. Describes difficulty falling asleep and some difficulty with sleep mainscottie e. Probably is describing restless leg syndrome. Cigarette smoker 8607356 7 F17.210 Discussed with patient advisabili ty of smoking cessation. Specifical ly emphasized that, in addition to other ills, smoking promotes inflammati on and that arthritis patients who smoke have less of a response to the anti-rheum atic drugs than non smokers. Offered encouragem ent to stop smoking. Provided resources to contact Tobacco user 375892171 Z 72.0 Anemia 362859931 D64.9 Mild anemia in past. Restless legs 54281054 G 25.81 Symptoms prominent in evening when trying to get to sleep.Disc ussed.Chec k iron studies.If iron normal, then I think it would be worthwhile trying her on some treatment. Probably will try gabapentin as it may help with RLS, sleep, and fibromyalg ia features. [id number] Nitesh Suarez MD [facility] [address] [address] 06/13/2017 10:39:29 06/13/2017 12:00:14 Multiple joint pain 41460969 M25.50 Marked improvemen t on Etodolac. Inflammat ory back sxs dramatical ly better. If she misses a dose of NSAID, prompt return of sxs. HLA B27 negative. Continue etodolac 400 BID. On omeprazole . Discussed pros and cons. Try reducing dose to qod, but if any GI sxs, resume daily dose. Hx PUD. Cigarette smoker 6531837 7 F17.210 Discussed cessation again. More receptive, but still not ready to commit. Offered referral to cessation counseling . Said she would think about it. Tobacco user 212606257 Z 72.0 Restless legs 95035741 G 25.81 Prominent RLS helped dramatical ly with hs gabapentin . Tolerating fine.Will change to 600 qhs.Contin ue indefinite ly. [id number] Ky Dixon MD , [facility], OFFICE [address] [place] [address] 12/23/2017 09:16:41 12/23/2017 10:22:51 Benign essential hypertension 4617785 I10 Blood pressure at goal of less tahn 140/90. Cigarette smoker 3895709 7 F17.210 Multiple joint pain 3567 8005 M25.50 Migraine 04436656 G43.90 9 [id number] Cale Douglass PA-C FP, [facility], OFFICE [address] [place] [address] 02/05/2018 09:49:48 02/05/2018 11:31:56 Retained foreign body in eye 32033493 H44.702 Eyelash removed with flushing today.Cont inue lubricatin g eye drops for comfort.F/ U for worsening or failure to improve within 3-4 days. [id number] Iris AGATA Morgan , [facility], OFFICE [address] [place] [address] 04/25/2018 09:53:30 04/25/2018 10:11:35 Cigarette smoker 96381803 F17.210 Tobacco user 217526701 Z 72.0 Contact de rmatitis caused by urushiol [place] 241600783 L25.5 Above the L eye, at this point not affecting her visionWill treat with prednisone taperRetur n to clinic for worsening or unresolved symptoms [id number] Ky Dixon MD , [facility], OFFICE [address] [place] [address] 07/04/2018 10:29:17 07/04/2018 11:36:20 Adult health examination 838676023 Z00.00 see Risk Assessment and Lifestyle Change Counseling section above Counseling 280637939 Z71 .9 Depression screening 171 679383 Z13.89 depression screening tool administer ed, entered into emr, scored Benign ess ential hypertension 0021861 I10 Blood pressure at goal Cigarette smoker 5513528 7 F17.210 Migraine 91736645 G43.90 9 Eczema 33409628 L30.9 [id number] Nitesh Suarez MD [facility] [address] [address] 12/16/2018 13:52:52 12/16/2018 14:34:42 Multiple joint pain 14067728 M25.50 Back pain with prominent inflammato ry characteri stics. HLA B27 negative. Check x rays, inflammato ry markers. For 2-3 years, she had done well with etodolac 400 TID, but sxs now incompletl ey controlled . discussed options. Try high dose indomethac in (200/d). If not tolerated or if ineffectiv e, she hould call. Would try piroxicam at high dose. Next step would be trial MTX and perhaps SSZ. Then, condidate for Humira. Return 2 mo. Cigarette smoker 3139130 7 F17.210 Discussed cessation again. More receptive, but still not ready to commit.Has cut down. Offered referral to cessation counseling . Said she would think about it. Tobacco user 002627272 Z 72.0 Bilateral trochanteric bursitis 0680349998 7303627 M70.61 M70.62 Findings of bilat troch bursitis. Will very likely respond to local injection. Schedule u/s injeciton. Restless legs 72998173 G 25.81 Prominent RLS helped dramatical ly with hs gabapentin . Tolerating fine.Will change to 900 qhs.Contin ue indefinite ly. Hip pain 97413552 M25.55 9 bilat trochanter ic pain. Low back pain 106962433 M54.5 Mixed picture of inflammat ory and mechanica l LBP. [id number] Ky Dixon MD , [facility], OFFICE [address] [place] [address] 12/29/2018 09:49:52 12/29/2018 10:38:51 Cigarette smoker 90135437 F17.210 Benign hypertension 1072 5009 I10 Multiple joint pain 3567 8005 M25.50 Migraine 65729761 G43.90 9 [id number] Nitesh Suarez MD Rheumatol [facility], [facility] [address] [place] [address] 01/06/2019 15:36:50 01/06/2019 16:11:37 Multiple joint pain 24370006 M25.50 Back pain with very prominent inflammato ry characteri stics. HLA B27 negative. X rays normal I would classify this as non-radiog raphic ankylosing spondyliti s. For 2-3 years, she had done well with etodolac 400 TID, but sxs now incompletl ey controlled . discussed options. Try high dose indomethac in (200/d). If not tolerated or if ineffectiv e, she hould call. Would try piroxicam at high dose. Next step would be trial MTX and perhaps SSZ. Then, candidate for Humira. Return 2 mo. Cigarette smoker 4317174 7 F17.210 Discussed cessation again. More receptive, but still not ready to commit.Has cut down. Tobacco user 833220453 Z 72.0 Bilateral trochanteric bursitis 4675732417 1587101 M70.61 M70.62 Findings of bilat troch bursitis. Will very likely respond to local injection. Schedule u/s injeciton. Restless legs 80553731 G 25.81 Prominent RLS helped dramatical ly with hs gabapentin . Tolerating fine.Will change to 900 qhs.Contin ue indefinite ly. Non-radiog raphic axial spondyloarthritis 352325398 M46.90 Back pain with very prominent inflammato ry characteri stics. HLA B27 negative. X rays normal I would classify this as non-radiog raphic ankylosing spondyliti s. For 2-3 years, she had done well with etodolac 400 TID, but sxs now incomplete ly controlled . We tried Indocin and now piroxicam, but it seems as if the etodolac is most successful . Change back to etodolac 400 TID. Continue omeprazole . We need to try additional treatment. Suspect she may end up on Biologic, but will try SSZ.Medica tion discussed in detail. Potential for side effects including, particular ly, potential for allergic reaction. On rare occasions this can be very serious. Patient instructed to discontinu e the medication immediatel y for any suspected allergy. Other side effects reviewed including headache, malaise, and GI upset. Follow-up blood count. Return about 8 weeks. If not seeing any improvemen t, strongly consider Humira etc. [id number] Bjorn Cox PA-C , [facility], OFFICE [address] [place] [address] 03/04/2019 11:41:43 03/05/2019 13:20:38 Migraine 55299907 G43.909 Refer to discussion section for complete summary of visit. Tobacco user 540180891 Z 72.0 Discussed and encourage smoking cessation. Patient contemplat ing but not ready. Encourage follow up if needing assistance with this. Nausea and vomiting 1693 1999 R11.2 Reported a while on OCP.- Neg [id number] Nitesh Suarez MD [facility], [facility] [address] [place] [address] 05/29/2019 14:28:44 05/29/2019 15:32:02 Migraine 41063497 G43.909 Had substantia l increase in frequency and severity while on full dose SSZ.Headac hes were incapacita ting with photophobi a and phonophobi a, nausea. Occurred upt every 3 days. Much better off the SSZ.Primar y Care had suggested neuro follow up, but I don't think this is needed at present. Tobacco user 798857972 Z 72.0 Cigarette smoker 6220634 7 F17.210 Discussed cessation again. More receptive, but still not ready to commit.Has cut down. Pointed out smoking promotes inflammati on. Non-radiog raphic axial spondyloarthritis 467003378 M46.90 Back pain with very prominent inflammato ry characteri stics. HLA B27 negative. X rays normal I would classify this as non-radiog raphic ankylosing spondyliti s. For 2-3 years, she had done well with etodolac 400 TID, but sxs now incomplete ly controlled . We tried Indocin and now piroxicam, but it seems as if the etodolac is most successful . Continue omeprazole . SSZ seemed to work well, but increased severity and intensity of migraines. Discussed. She wants to try SSZ, but at lower dose.Try 500/d for 2 weeks, then 500 bid. If this is ineffectiv e or not tolerated, next step would be Biologic. Return 4 mo or sooner if needed. 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 Discussed GI and cardiovasc ular risks. Taking omeprazole . Periodic labs needed. [id number] Nitesh Suarez MD [facility], [facility] [address] [place] [address] 07/28/2019 13:12:46 07/28/2019 13:59:33 Non-radiographic axial spondyloarthritis 805435966 M46.90 Back pain with very prominent inflammato ry characteri stics. HLA B27 negative. X rays normal. Dramatic (but incomplete ) response to NSAID. I would classify this as non-radiog raphic ankylosing spondyliti s. For 2-3 years, she had done well with etodolac 400 TID, but sxs now incomplete ly controlled . We tried Indocin and now piroxicam, but it seems as if the etodolac is most successful . Continue omeprazole . SSZ seemed to work well, but increased severity and intensity of migraines. Currently only med is Etodolac 400 tid. Sxs inadequate ly controlled . Discussed options. Could try adding MTX, but NOT likely to be helpful in spondyliti s.Discusse d use of TNF meds, other biologics. Specific discussion of potential serious side effects including infection, lymphoma.I emphasized that we would only want her to stay on this beyond 3 mo IF clearly and significan tly effective. Suggested she get flu shot. Return 2 mo or sooner if needed. Tobacco user 670835974 Z 72.0 Cigarette smoker 1978331 7 F17.210 Discussed cessation again. More receptive, but still not ready to commit.Has cut down. Pointed out smoking promotes inflammati on. [id number] Siria Decker CMA FP, [facility], OFFICE [address] [place] [address] 07/31/2019 11:15:10 07/31/2019 11:55:53 Cigarette smoker 46475254 F17.210 Benign hypertension 1072 5009 I10 Low back pain 396654680 M54.5 Multiple joint pain 3567 8005 M25.50 Migraine 88788027 G43.90 9 Non-radiog raphic axial spondyloarthritis 973030780 M46.90 Active or passive immunization 990534757 Z23 [id number] Nitesh Suarez MD [facility], [facility] [address] [place] [address] 10/27/2019 09:56:24 10/27/2019 16:47:44 Non-radiographic axial spondyloarthritis 387002150 M46.90 Back pain with very prominent inflammato ry characteri stics. HLA B27 negative. X rays normal. Dramatic (but incomplete ) response to NSAID.She has had a DRAMATIC response to Humira. I would classify this as non-radio graphic ankylosing spondyliti s . I find it quite interestin g that years of daily diarrhea resolved coincident with her starting the Humira. This hints at possible underlying IBD. Discussed infection risk and Humira.She got the flu shot. Suggested she get pneumococc al vaccines. She wants to discuss with Primary Care. Return 4-5 mo or sooner if needed. Chronic diarrhea 8058557 09 K52.9 Patient had this since a teenager. It was so constant, she did not consider it abnormal.I find it quite interestin g that years of daily diarrhea resolved coincident with her starting the Humira. This hints at possible underlying IBD.I don't know whether this should prompt a GI referral. She should discuss with Primary Care. Long-term drug therapy 080624294 Z79.899 On Humira. 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 [id number] MD DONIS Mccartney, [facility], OFFICE [address] [place] [address] 11/02/2019 09:37:49 11/02/2019 09:54:59 Active or passive immunization 994554686 Z23 [id number] MD DONIS Mccartney, [facility], OFFICE [address] [place] [address] 01/25/2020 13:43:47 01/26/2020 11:47:02 Cigarette smoker 43929600 F17.210 not ready to quit Essential hypertension 47802226 I10 contorlled on verapmil Multiple joint pain 3567 8005 M25.50 discussed plant paradox diet. Migraine 58091734 G43.90 9 better [id number] Xavier Corley MD Rheumatol [address] [address] 04/12/2020 14:22:00 04/13/2020 12:59:13 Non-radiographic axial spondyloarthritis 339513250 M46.90 Back pain with very prominent inflammato ry characteri stics. HLA B27 negative. X rays normal. Dramatic (but incomplete ) response to NSAID.She has had a DRAMATIC response to Humira. Continue Humira for now. Patient asked to slowly taper down edotolac to twice a day.Check labs.Patie nt to get flu shot in the fall. Got PCV 13 in 11/12. [id number] Ansley Hinton NP , [facility], [address] [place] [address] 08/06/2020 09:37:56 08/08/2020 15:19:33 Urinary tract infectious disease 55487887 N39.0 will treat uncomplica yumiko UTI based on classic Sx. no fever, abd pain, or flank pain. abx as prescribed . Pyridium as needed, will likely turn urine orange/red . follow up if not improving in 2-3 days, new back pain, or fever. try not to avoid using the bathroom at work Cigarette smoker 3958171 7 F17.210 working on gradual taper. wellbutrin helps. gets quitters win texts Tobacco user 461103707 Z 72.0 Benign hypertension 1072 5009 I10 Not at goal of <130/80 today but usually is. she will monitor BP at home over the next couple weeks and report [id number] Xavier Corley MD Rheumatol [facility], [address] [address] 2020 10:12:31 2020 19:40:03 Non-radiographic axial spondyloarthritis 058016105 M46.90 Back pain with very prominent inflammato ry characteri stics. HLA B27 negative. X rays normal. Dramatic (but incomplete ) response to NSAID. She states that Humira response is wearing off. This happened after she decreased her NSAIDs to once daily. Will change Humira to every 10 days. Continue Edotolac once daily. Check labs. Patient to get flu shot. Got PCV 13 in 11/12. Patient to stop Humira if any fever or signs of infection. Patient verbalizes understand ing. [id number] Xavier Corley MD Rheumatol [facility], [facility] [address] [place], [place] 6 12/05/2020 07:50:41 12/05/2020 12:11:38 Non-radiographic axial spondyloarthritis 419556044 M46.90 Back pain with very prominent inflammato ry characteri stics. HLA B27 negative. X rays normal. Dramatic (but incomplete ) response to NSAID. She states that she feels much better with the new dosage of Humira, every 10 days, continue for now. Continue Edotolac once daily. Check labs before next visit. Patient to get flu shot. Got PCV 13 in 11/12. Patient got the first dose of COVID vaccine. Patient to stop Humira if any fever or signs of infection. Patient verbalizes understand ing. [id number] Ky Dixon MD , [facility], OFFICE [address] [place] [address] 6 02/20/2021 13:20:49 02/21/2021 14:27:33 Essential hypertension 41969416 I10 contorlled on verapmil Cigarette smoker 5758403 7 F17.210 not ready to quit Multiple joint pain 3567 8005 M25.50 Seems better. Non-radiog raphic axial spondyloarthritis 217164812 M46.90 continue humira [id number] Andree Stark , [facility], OFFICE [address] [place] [address] 6 05/23/2021 13:45:37 05/23/2021 16:57:52 Cigarette smoker 83363368 F17.210 working on gradual taper. wellbutrin helps. gets quitters win texts Tobacco user 635103914 Z 72.0 Abdominal pain 36044407 R10.9 seems to be a significan t gerd flare with heart burn, abd pain, vomiting, hematemesi s. increase omeprazole to BID. avoid triggering foods. small meals. elevate the head of your bed. labs. referred to GI urgently. Hematemesis 4464974 K92. 0 likely mariana-we iss tear after forceful/r epeated vomiting. no hematochez ia or dark tary stool. monitor and report recurrent or persistent symptoms, lethargy, dizziness, or other new concerns [id number] Xavier Corley MD [facility], [address] [address] 08/31/2021 10:00:44 08/31/2021 12:44:49 Non-radiographic axial spondyloarthritis 038542691 M46.90 Back pain with very prominent inflammato ry characteri stics. HLA B27 negative. X rays normal. Dramatic (but incomplete ) response to NSAID. She states that she feels much better with the new dosage of Humira, every 10 days, continue for now. Continue Edotolac 400mg daily. Try to do 200 mg bid and see it helps better. Check labs before next visit. Patient to get flu shot and COVID booster. Arrange for PPV-23. Patient to stop Humira if any fever or signs of infection. Patient verbalizes understand ing.Erice lled to wean tramadol slowly.RTC in 4 months. Restless legs 90929770 G 25.81 On Gabapentin .Having symptoms.W ill check with pcp on adjusting therapy. [id number] BRIANDA Ni , [facility], OFFICE [address] [place] [address] 09/26/2021 16:41:40 09/26/2021 17:15:17 Pain of right shoulder joint 3390542900 4814545 M25.511 Suspect strain/spr ain, pt has FROM of shoulderWi ll get xrayDiscus sed supportive carePt to contact the office if no improvemen t or any worsening symptoms [id number] MD DONIS Mccartney, [facility], OFFICE [address] [place] [address] 03/16/2022 13:17:48 03/16/2022 14:16:52 Adult health examination 684244155 Z00.00 see Risk Assessment and Lifestyle Change Counseling section above Counseling 852457621 Z71 .9 Depression screening 171 963891 Z13.31 depression screening tool administer ed, entered into emr, scored and discussed. Screening for alcohol abuse 545032525 Z13.39 Tobacco user 643308056 Z 72.0 discussed. Essential hypertension 75725020 I10 controlled on verapamil Non-radiog raphic axial spondyloarthritis 025500078 M46.90 continue humira, tramadol, [id number] Ky Dixon MD FP, [facility], OFFICE [address] [place] [address] 04/06/2022 08:39:07 04/10/2022 07:50:04 Acute upper respiratory infection 31215787 J06.9 Tobacco user 319472003 Z 72.0 discussed. Has stopped due to pain. Discussed keeping off as her desire was to quit. Acute pharyngitis 893083 003 J02.9 possible strep. will do cutue. Will come in at 10 PM to do that. [id number] Ky Dixon MD , [facility], OFFICE [address] [place] [address] 10/01/2022 10:34:28 10/01/2022 11:05:21 Tobacco user 660580108 Z72.0 We discussed your smoking today for more than 3 minutes. Cigarette use is the leading cause of preventabl e disease, disability , and in the [place]. We talked about tools and medication s available to help you in smoking cessation. We discussed utilizing our smoking cessation assistant women's basketball coach and online resources. Your personal goal: Essential hypertension 13819582 I10 128/80 controlled on verapamil, continue 240 mg. Non-radiog raphic axial spondyloarthritis 126535226 M45.A0 continue humira, tramadol, etodolac, tizanidine . Restless legs 68909710 G 25.81 [id number] Mercedes Ca NP FP, [facility], OFFICE [address] [place] [address] 12/17/2022 10:30:42 12/18/2022 09:14:57 Tobacco user 117387148 Z72.0 We discussed your smoking today for more than 3 minutes. Cigarette use is the leading cause of preventabl e disease, disability , and in the [place]. We talked about tools and medication s available to help you in smoking cessation. We discussed utilizing our smoking cessation assistant women's basketball coach and online resources. Not ready to quit. Bee sting 171974143 T63. 91XA increase benadryl to 2- 3 x per day-ice 2-3 x per day-call if not imrpoving Non-radiog raphic axial spondyloarthritis 163783551 M45.A0 -stable on meds Active or passive immunization 939976466 Z23 [id number] Ky Dixon MD , [facility], OFFICE [address] [place] [address] 03/26/2023 15:10:38 03/27/2023 08:57:17 Adult health examination 670936501 Z00.00 see Risk Assessment and Lifestyle Change Counseling section above Depression screening 171 Z13.31 depression screening tool administer ed Screening for alcohol abuse 398970814 Z13.39 Alcohol use screening tool administer ed Tobacco user 434352277 Z 72.0 We discussed your smoking today for more than 3 minutes. Cigarette use is the leading cause of preventabl e disease, disability , and in the [place]. We talked about tools and medication s available to help you in smoking cessation. We discussed utilizing our smoking cessation assistant women's basketball coach and online resources. Your personal goal: to quit. at some point. Benign hypertension 1072 5009 I10 At goal of under 130/80. continue verapamil ER 240 Migraine 78833762 G43.90 9 better on verapamil Multiple joint pain 3567 8005 M25.50 Seems better. Non-radiog raphic axial spondyloarthritis 134000573 M45.A0 continue humira, tramadol, etodolac, tizanidine . seein Dr. Martínez [id number] Ky Dixon MD FP, [facility], OFFICE [address] [place] [address] 04/17/2024 13:29:16 04/17/2024 14:15:56 Adult health examination 076320999 Z00.00 see Risk Assessment and Lifestyle Change Counseling section above Depression screening 171 Z13.31 depression screening tool administer ed Screening for alcohol abuse 065545724 Z13.39 Alcohol use screening tool administer ed Benign hypertension 1072 5009 I10 At goal of under 130/80. continue verapamil ER 240 Multiple joint pain 3567 8005 M25.50 Seems better. on Humira, con't ramadol Undifferen tiated spondylitis 645817411 M46.90 on Humira Psoriasis 8703096 L40.9 on humira from rheumatolo gy Restless legs 88977149 G 25.81 on yenni. [id number] Nitza So , [facility], OFFICE [address] [place] [address] 06/30/2024 09:01:18 06/30/2024 09:55:16 Menstrual spotting 7900750 N92.5 Pain in pelvis 44039616 R10.2 Will get ultrasound of the pelvis for uterus and ovarian problem. Will also do swab to check infection [id number] MD DONIS Mccartney, [facility], OFFICE [address] [place] [address] 10/30/2024 08:26:40 10/30/2024 09:01:40 Nicotine dependence 87916664 F17.200 We discussed your smoking/va ping today for more than 3 minutes.Sm oking tobacco is the leading cause of preventabl e disease, disability , and in the [place]. Inhaling aerosolize d nicotine is widely believed to be safer than combustibl e tobacco, but still exposes people to numerous harmful substances , heavy metals like lead, and cancer-cau sing agents. Nicotine is harmful to developing brains and can disrupt the formation of brain circuits that control attention, learning, and susceptibi lity to addiction. We talked about tools and medication s available to help you in smoking/va ping cessation. We discussed utilizing our smoking cessation assistant women's basketball coach and online resources. Your personal goal: will get there Restless legs 83109898 G 25.81 on yenni. Benign hypertension 1072 5009 I10 At goal of under 130/80. continue verapamil ER 240 Non-radiog raphic axial spondyloarthritis 724018202 M45.A0 continue humira, tramadol, etodolac, tizanidine . Biceps tendinitis 622469 [address] Vides. Health Concerns Section Related Observation LastModified by Organization Detai ls LastModified Time None Recorded Concern Status LastModified by Organization Details LastModified Time None Recorded Advance Directives Directive N: INFO GIVEN Payers Encounter Date Sequence Insurance Name Policy Number Policy Munson Covered Member ID Munson Member ID Guarantor Name 12/17/2022 1 [place] PRIOR TO 2022 - [employer] (MEDICAID) Meeta Lay [id number] Meeta Lay 12/17/2022 1 [employer] - DOS ON OR AFTER 2022 - [employer] (MEDICAID REPLACEMENT - HMO) Meeta Lay [id number] Meeta Lay 03/26/2023 1 [employer] - DOS ON OR AFTER 2022 - [employer] (MEDICAID REPLACEMENT - HMO) Meeta Lay [id number] Meeta Lay 04/17/2024 1 [employer] - DOS ON OR AFTER 2022 - [employer] (MEDICAID REPLACEMENT - HMO) Meeta Lay [id number] Meeta Lay 06/30/2024 1 [employer] - DOS ON OR AFTER 2022 - [employer] (MEDICAID REPLACEMENT - HMO) Meeta Lay [id number] Meeta Lay 10/30/2024 1 [facility] [facility] - DOS ON OR AFTER 2022 - [facility] [facility] (MEDICAID REPLACEMENT - HMO) Meeta Lay [id number] Meeta Lay Notes Date Note Type Note Provider Name and Address Organization Details Recorded Time 3 text/html 37 yo presents for wasp sting Stung Saturday by wasp -on R hand/palm Benadryl 2 pills a day and hydrocortz - occ icingNo hx of anaphylaxisNo breathing issues, no throat swelling Smoking- smoking less; 3 cigs / d, declines nrt Rheum-continues on oumar Ca NP [address] [place] [address], [place], [address], [facility] 12/18/2022 16:25:27 3 text/html Physical Exam/FemaleReported bypatient.Notes:Here for physical. 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 Has inflammatory arthritis back , hip , fingers. back mostly. GERD- omeprazole. Risk Assessment and Lifestyle Change Counseling 18-50Reported bypatient.Coronary Artery Disease Risk Assesment:No Family history of coronary artery disease; No personal history of diabetes; No history of peripheral vascular disease, AAA, or carotid disease; No personal history of coronary artery disease Breast Cancer Risk Assessment:No family history of breast cancer; No history of breast cancer or dcis Lung Cancer Risk Assessment:Current smoker; No asbestos exposure Cognitive/Behavioral Risk Assessment:No personal history of mental illness; No family history of mental illness Safety Risk Assessment:No evidence of abuse/neglect Colon Cancer Risk:No family history of colon polyps or cancera/vmg-Smoking CessationReported bypatient.Notes:went to 1.5 packs, but is cutting back. Only 5 today by 4 pm. 36 yo here for wellness. She has split up with Hernandez. She lives in the two family on top level with son Shorty and Hernandez(ex) lives in the basement with his GF Sammi. Charla( Hernandez's mom ) lives in the middle. .. Saw Dr. Corley, is diagnosis probable spondyloarthropathy .PRIYA neg.on gabapentin , tizanidine, and tramadol. RLS gabapentin. Does not eat late at night anymore. Does walking. Not sure when /how gained weight. probioitc gummies. Rash low back healing. - hydrocort, Abx. Wt more or less stable. Ky Dixon MD [address] [place] [address], [phone], [facility] 03/26/2023 16:11:51 4 text/html Physical Exam/FemaleReported bypatient.Notes:Here for physical. 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 Has inflammatory arthritis back , hip , fingers. back mostly. GERD- omeprazole. Risk Assesment and Lifestyle Change Counseling-female 18-26Reported bypatient.Coronary Artery Disease Risk Assesment:Family History of Coronary Artery Disease; Regular exercise program; Eats a diet low in fats and high in fiber;Personal history of hypertension; No personal history of diabetes;Uses tobacco; No history of peripheral vascular disease, AAA, or carotid disease; No personal history of coronary artery disease Breast Cancer Risk Assesment:No family history of breast cancer (but unclear); No history of breast cancer or dcis; Menarche age greater than 12 Cervical Cancer Risk Assesment:No abnormal pap smears Cognitive/Behavioral Risk Assesment:No history of depression;Family history of depression Safety Risk Assesment:uses helmet for high velocity activities; uses seat belts Diet:Counseled about appropriate portion size; Counseled about eating a diet low in trans and saturated fats and high in fiber, fruits and vegetables (just changed in the past 9-10 months); Counseled about appropriate calcium intake and good dietary sources of calcium. Exercise counseling:Discussed the importance of daily physical activity (cardio) Smoking Cessation Counseling:Counseled about smoking cessation; Patient does not want to stop smoking at this time Family Planning:Using control condoms Emergerncy Department and Urgent Care:Counseled about appropriate use of the emergency room and availability of urgent care at Ga/g-Smoking CessationReported bypatient.Notes:down to 3 cig/d.a/vmg-smoking [id number] bypatient.Notes:smokes 3/day. 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 01/[address] Israel, is diagnosis probable spondyloarthropathy .PRIYA neg. On Humira, on tramadol, gabapentin , tizanidine. RLS gabapentin. Does not eat late at night anymore. Does walking. Rash low back healing. - hydrocort, Abx. Wt more or less stable. Ky Dixon MD [address] [place] [address], [place], [phone], [facility] 04/17/2024 14:15:49 4 text/html Pt comes in today c/o pelvic pressure and discomfort 'like the uterus is dropping' that started this past weekend. Pt is on OCP and uses condoms with her partner, but with having breast tenderness in addition to these symptoms she was questioning . She did have some spotting 06/28/24 but then it 'just stopped.' LMP 05/27/24. She is moving her bowels regularly. In middle of May she did have itching and burning and that went away. Pt was on Humira but had to stop with COVID in April. She restarted the Humira in May (psoriatic arthritis). Nitza So [address] [place], [phone], [facility] 06/30/2024 09:54:08 text/html a/vmg-Smoking CessationReported bypatient.Notes:down to 3 cig/d.a/vmg-smoking [id number] bypatient.Notes:smokes 3/day. 39 yo here for Medical management. c/o 2 mo R shoulder pain. HTN- verapamil GERD- omeprazole BID Exercise- fast pace walking. Works [employer]. 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 01/2015 Dx- on the spectrum. .. Sees , Rheum. diagnosis probable spondyloarthropathy .PRIYA neg. On Humira, on tramadol, gabapentin , tizanidine. RLS gabapentin. Does not eat late at night anymore. Does walking. Wt more or less stable. Ky Dixon MD [address] [place], [address], [facility] 10/30/2024 09:00:20 OBGyn Episode No OBEpisode recorded.
--- OUTSIDE RECORDS SUMMARY | 2024-11-02 13:13 | XMS_ITS | Continuity of Care Document ---
Author Organization [facility], FP, EHC, OFFICE Address [address] [place] [id number] Care Team Providers Care Water Resource Agent Name Role Phone [place] DIXON Primary Care Provider [phone] [facility] Car Starter [facility] Building Architect ADELINE LEA Car Starter TONO MARTÍNEZ Production Hand [facility] Orthopedist KRYSTAL ONOFRE Silver Cleaner Assessment No assessment recorded. Plan of Treatment Reminders Order Date Submit Date Provider Last Modified By Organization Details Last Modified Time Details Appointments Wellness Visit 30 2024 09:00A M Ky Dixon MD Not available Not available Not available Lab None recorded. Referral sports medicine referral - 2 months shoulder pain. suspect bicep tendoniti s given ecrcises 2024 025 cherry Vides MD, [address] [place] [address], [id number], 11/02/2024 10:07:57 Procedures None recorded. Surgeries None recorded. Imaging None recorded. Medication Orders None recorded. Patient TargetsNo targets recorded. Patient InstructionsNo instructions recorded. Reason for Referral 2 months shoulder pain. susp ect bicep tendonitis given ecrcises Referring Physician: Ky Dixon, Family Medicine, Encounter Date: 10/30/2024 Problems Name Problem SNOMED Code Status Onset Date Resolution Date Notes Provider Name and Address Organization Details Recorded Time Benign hypertens ion 71511456 Active Mercedes Ca NP [address] [place] [address], [phone] , [facility] 3 11:13:54 Multiple joint pain 27345176 Active takes tramadol. Sees Dr. Suarez. axial spodyloart hritis( neg x-rays) Mercedes Ca NP [address] [place] [address], [phone] , [facility] 3 11:13:54 Psoriasis 5064287 Active 2017 Not Available [facility] 3 13:57:16 Non-radio graphic axial spondyloa rthritis 304543217 Active 2018 Mercedes Ca NP [address] [place] [address], [address] , [facility] 3 11:13:54 Undiffere ntiated spondylit is 443466123 Active 2023 Ky Dixon MD [address] [place] [address], [phone] , [facility] 4 14:01:21 Restless legs 04946492 Active 2024 Ky Dixon MD [address] [place] [address], [address] , [facility] 5 08:47:10 Migraine 74054350 Active sumatripta n not helpful. Mercedes Ca NP [address] [place] [address], [address] , [facility] 3 11:13:54 Low back pain 859627544 Active Mercedes Ca NP [address] [place] [address], [phone] , [facility] 3 11:13:54 Problem Notes None recorded. Procedures Surgical History Date Name Laterality Status Provider Name and Address Organization Details Recorded Time 10/31/19 25 Smoking cessation counseling completed Siria Decker CMA [facility] 10/27/2024 10:31:47 03/26/20 23 Smoking cessation counseling completed Siria Decker CMA [facility] 03/26/2023 15:38:37 12/18/19 23 Smoking cessation counseling completed Crystal Spears [facility] 12/17/2022 11:03:44 10/01/19 23 Smoking cessation counseling completed Siria Decker [facility] 10/01/2022 10:43:16 04/06/20 22 Smoking cessation counseling completed Siria Decker [facility] 04/06/2022 08:39:49 03/16/20 22 Smoking cessation counseling completed Siria Decker [facility] 03/16/2022 13:38:29 05/23/20 21 Smoking cessation counseling completed Ansley Hinton NP [address] [place] [address], [phone], [facility] 05/23/2021 22:56:24 02/21/20 21 Smoking cessation counseling completed Siria Decker [facility] 02/20/2021 13:26:32 08/06/20 20 Smoking cessation counseling completed Ansley Hinton NP [address] [place] [address], [phone], [facility] 08/06/2020 10:14:50 01/25/20 20 Smoking cessation counseling completed Siria Decker [facility] 01/25/2020 09:58:05 07/31/20 19 [facility] 11:18:39 07/28/20 19 Smoking cessation counseling completed Nitesh Suarez MD [address] [place] [address], [phone], [facility] 07/28/2019 15:28:03 05/29/20 19 Smoking cessation counseling completed Nitesh Suarez MD [address] [place] [address], [phone], [facility] 05/31/2019 08:46:53 03/04/20 19 Smoking cessation counseling completed [facility] 03/04/2019 11:45:18 03/04/20 19 [facility] 11:45:18 03/04/20 19 POC hCG Testing completed Erie [facility] 03/04/2019 12:12:41 01/07/20 19 Smoking cessation counseling completed Nitesh Suarez MD [address] [place] [address], [phone], [facility] 01/06/2019 18:56:41 12/30/19 19 Smoking cessation counseling completed Siria Decker [facility] 12/29/2018 09:53:05 12/17/19 19 Smoking cessation counseling completed Priscilla Sawant LPN [facility] 12/16/2018 13:55:00 07/04/20 18 Smoking cessation counseling completed Siria Decker [facility] 07/04/2018 10:42:38 04/25/20 18 Smoking cessation counseling completed Leonor Noriega [facility] 04/25/2018 09:55:00 12/24/19 18 Smoking cessation counseling completed Siria Decker [facility] 12/23/2017 09:34:21 06/13/20 17 Smoking cessation counseling completed Priscilla Sawant [facility] 06/13/2017 10:51:19 03/11/20 17 Smoking cessation counseling completed Priscilla Sawant LPN [facility] 03/11/2017 14:35:31 03/04/20 17 Smoking cessation counseling completed Jan Perez [facility] 03/04/2017 16:24:31 03/04/20 17 Carbon Monoxide Testing completed Jan Perez LPN [facility] 03/04/2017 16:24:31 12/15/19 17 Smoking cessation counseling completed Noy Saavedra [facility] 12/14/2016 10:23:15 12/15/19 17 Carbon Monoxide Testing completed Noy Saavedra [facility] 12/14/2016 10:26:34 09/28/19 17 Smoking cessation counseling completed Ari[facility] 09/28/2016 10:51:25 09/28/19 17 Carbon Monoxide Testing completed [facility] 09/28/2016 11:06:25 09/28/19 17 POC Strep Testing completed [facility] 09/28/2016 11:06:29 10/24/19 16 Smoking cessation counseling completed Noy Saavedra [facility] 10/24/2015 15:29:53 01/25/20 15 completed Noy Sandoval NP [address] [place], [address], [facility] 02/08/2015 21:42:20 12/23/19 15 Smoking cessation counseling completed Maisha Ron [facility] 12/22/2014 14:37:09 11/20/19 15 Smoking cessation counseling completed Maisha Ron [facility] 11/19/2014 09:53:14 08/27/19 15 Smoking cessation counseling completed Maisha Ron [facility] 08/27/2014 09:13:45 06/21/20 14 Smoking cessation counseling completed Maisha Ron [facility] 06/21/2014 11:52:26 02/21/20 12 Treatment and Advice completed Gloria Gonzalez Mph, LPT [address] [place], [phone], [facility] 02/21/2012 15:49:02 02/12/20 12 Treatment and Advice completed Gloria Gonzalez Mph, LPT [address] [place], [address], [facility] 02/12/2012 14:06:28 02/05/20 12 Smoking cessation counseling completed Gino Mcclure [facility] 02/05/2012 10:49:24 Imaging Results None recorded. Procedure Notes None recorded. Medical Equipment None Reported. Allergies Allergen ID Allergen Name Allergen Category Reaction Reaction Severity Criticality Documentation Date Start Date Code Code System Note Provider Name and Address Organization Details Recorded Time 19830429 strawberr y allergeni c extract food Not available Not available Not available 03/11/2017 63322 4 RxNorm Pt no longe r aller gice to straw berri es NMT, not aller gic miles power ed it LING Ho [facility] 2 10:07:35 84948 Erythroci n medicatio n anaphylax is Not available Not available 10/21/2009 34524 3 RxNorm Not Available [facility] 1 06:05:20 549195 pumpkin allergeni c extract food,medi cation Not available Not available Not available 06/30/2024 04207 9 RxNorm Dary Gutierres [facility] 4 09:17:35 41679 erythromy guanako medicatio n anaphylax is Not available Not available 07/14/2010 4053 RxNorm Not Available [facility] 1 06:05:41 Medications Name Sig Start [...] 2014 active CHANGED TO RIZATRIP SPRINGER BY JF ON 11/19/14 Not Available Not Available Not [...] Not Available Not Available Not Available vitamin L32-lbzkb acid 12/14 completed Not Available Not Available [...] Updated DateTime 5 157.48 cm 35.3 kg/m2 15663.7 3 g 99 % 99 % 65 /min 128 mm[Hg] 80 mm[Hg] Rossi Zhao [facility] 5 08:36:35 Social History Question Answer Notes LastModified by Organizat ion Details LastModified Time Tobacco Smoking Status Current Every Day Smoker 1/4 cigarettes daily 05/23/21 NMT 08/06/20 srp <1ppd 09/28/16 [facility] 05/23/2021 14:01:06 Do You [...] available 01/03/2015 Are You Currently Employed? Yes [email or web address] Information not available 04/17/2024 What Type Of [...] To Your Family Or Social Situation? No [email or web address] Information not available 04/17/2024 When Did You [...] available 04/20/2024 Marital Status From Hernandez Caban [email or web address] Information not available 02/20/2021 Mosquito Repellent Used Routinely Yes Information not available 12/22/2014 What Was The Date Of Your Most Recent Tobacco Screening? 10/30/2024 Information not available 10/30/2024 How Many Children Do You Have? 1 Venkat 02/02/15. [email or web address] Information not available 02/20/2021 What Is Your Current Pack Years? 10packyears Started Smoking At 19. 5years Smoked 1/2ppd . Prior To That Smoke 1ppd., 3 A Day 09/26/21 Ramón Information not available 09/26/2021 What Is Your Relationship Status? From Hernandez [email or web address] Information not available 10/01/2022 Do You Use Your Seat Belt Or Car Seat Routinely? Yes [email or web address] Information not available 04/17/2024 Seat Belts Used Routinely Yes Information not available 12/22/2014 Are You Sexually Active? No [email or web address] Information not available 10/01/2022 Smoke Alarm In Home Yes Information not available 12/22/2014 Do You Have Smoke And Carbon Monoxide Detectors In Your Home? Yes [email or web address] Information not available 04/17/2024 Do You Or Have You Ever Used Smokeless Tobacco? Never Used Smokeless Tobacco Information not available 08/06/2020 How Much Tobacco Do You Smoke? 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 She Cares For Him. [email or web address] Information not available 02/20/2021 Do You Use Any Illicit Or Recreational Drugs? No [email or web address] Information not available 04/17/2024 Do You Use Sunscreen Routinely? Yes Information not available 12/22/2014 Do You Or Have You Ever Used Any Other Forms Of Tobacco Or Nicotine? No [email or web address] Information not available 05/23/2021 Sex: Unknown Functional [...] Peptic Ulcer Disease Y Kidney Stones Y Migraine Headaches Y RHEUMATOLOGIC Hypertension Y Asthma Y psoriasis Gynecological History Statement/Question Response Menses Monthly N History of Abnormal Pap Y Current Control Method BCPs Age at Menarche 12 Obstetrics History GPAL:G 0 P 0 0 0 0 Immunizations Vaccine Type Date Status Note Provider Nam e and Address Organization Details Recorded Time Td(adult) unspecified formulation 0 completed Not Available [facility] 09/26/2019 02:10:36 Influenza, split virus, quadrivalent, PF 9 completed Not Available [facility] 09/12/2019 02:24:36 Pneumococcal conjugate PCV 13 0 completed Ky Dixon MD [address] [place] [address], [phone], [facility] 11/02/2019 12:57:53 Tdap 3 completed Crystal Spears AUTOMATIC GRINDER OPERATOR null, [facility] 12/17/2022 13:35:57 COVID-19, mRNA, LNP-S, PF, 30 mcg/0.3 mL dose 1 completed Ila Wyatt AUTOMATIC GRINDER OPERATOR null, [facility] 05/23/2021 14:01:58 COVID-19, mRNA, LNP-S, PF, 30 mcg/0.3 mL dose 1 completed Ila Wyatt CMA null, [facility] 05/23/2021 14:02:16 COVID-19, mRNA, LNP-S, PF, 30 mcg/0.3 mL dose 2 completed Siria Decker AUTOMATIC GRINDER OPERATOR null, [facility] 09/04/2021 08:35:11 Past Encounters Encounter ID Performer Location Encounter Start Date Encounter Closed Date Diagnosis/Indication Diagnosis SNOMED-CT Code Diagnosis ICD10 Code Diagnosis Note [id number] Ky Dixon MD , [facility], OFFICE [address] [place] [address] 10/30/2024 08:26:40 10/30/2024 09:01:40 Nicotine dependence 52474288 F17.200 We discussed your smoking/va ping today [...] We discussed utilizing our smoking cessation assistant coach and online resources. Your personal goal: will get there Restless legs 76209928 G 25.81 on yenni. Benign hypertension 1072 5009 I10 At goal of under 130/80. continue verapamil ER 240 Non-radiog raphic axial spondyloarthritis 620837794 M45.A0 continue humira, tramadol, etodolac, tizanidine . Biceps tendinitis 730402 [address] Vides. Health Concerns Section Related Observation LastModified by Organization Detai ls LastModified Time None Recorded Concern Status LastModified by Organization Details LastModified Time None Recorded Payers Encounter Date Sequence Insurance Name Policy Number Policy Munson Covered Member ID Munson Member ID Guarantor Name 10/30/2024 1 [facility] - DOS ON OR AFTER 2022 - [facility] (MEDICAID REPLACEMENT - HMO) Meeta Lay [id number] Meeta Lay Notes Date Note Type Note Provider Name and Address Organization Details Recorded Time 5 text/html a/vmg-Smoking CessationReported bypatient.Notes:down to 3 cig/d.a/vmg-smoking [id number] bypatient.Notes:smokes 3/day. 39 yo here for Medical management. c/o 2 mo R shoulder pain. HTN- verapamil GERD- omeprazole BID Exercise- fast pace walking. 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 01/2015 Dx- on the spectrum. .. Sees , Rheum. diagnosis probable spondyloarthropathy .PRIYA neg. On Humira, on tramadol, gabapentin , tizanidine. RLS gabapentin. Does not eat late at night anymore. Does walking. Wt more or less stable. Ky Dixon MD [address] [place] [address], [phone], [facility] 10/30/2024 09:00:20 OBGyn Episode No OBEpisode recorded.
[2024-11-02 13:14] LABS: HBS Num1 > 1000.00 mIU/mL (0-7.99); HBc Num1 0.06 S/CO (0.00-0.79); Hepatitis A Antibody IgM 0.13 Index (0-0.79); Hepatitis B Core Antibody Nonreactive (Nonreactive); Hepatitis B Surface Antigen Negative (Negative); ~HepC Num1 0.12 S/CO (0.00-0.79); ~Hepatitis A Antibody IgM Nonreactive (Nonreactive); ~Hepatitis B Surface Antibody REACTIVE (Nonreactive); ~Hepatitis C Antibody Nonreactive (Nonreactive)
[2024-11-02 13:36] LABS: Erythrocyte Sedimentation Rate 12 MM/HR (0-20)
[2024-11-05 14:08] LABS: TS Negative Control Passed; TS Panel A 0; TS Panel B 0; TS Positive Control Passed; TSpotTB Negative (Negative)
== END 2024-11-02 11:31 | disposition home or self-care (01) ==
LOC: HO.LAB 11:30
PROVIDERS: PCP Family Medicine; Visit Provider Student in an Organized Health Care Education/Training Program
DX: M45.A0 Non-radiographic axial spondyloarthritis of unspecified sites in spine (principal); Z79.899 Other long term (current) drug therapy; Z11.7 Encounter for testing for latent tuberculosis infection; Z11.59 Encounter for screening for other viral diseases
CPT/HCPCS: 36415; 80053; 85025; 85652; 86140; 86481; 86704; 86706; 86709; 86803; 87340

== ENCOUNTER 2024-11-03 14:35 | Outpatient (AMB) | payer OTHER, SELFPAY ==
--- NOTE | 2024-11-03 14:44 | MHC.OFFVIS ---
Vital Signs 11/03/24 14:47 Height 5 ft 2 in Weight 195 lb 15.855 oz BMI 35.8 BP 120/80 Blood Pressure Location Rt brachial Position Sitting Pulse 78 Pulse Source Pulse Oximeter Pulse Oximetry (%) 98 Oxygen Delivery Method Room Air Intake Visit Reasons: AxSpA Intake Note: Patient presents for AxSpA. Allergies erythromycin base Adverse Reaction (Severe, Verified 11/03/24 14:47) Anaphylaxis Medication List - Last Reconciled 11/03/24 by Emma Allen MD bupropion HCl SR 150 mg PO BID dexamethasone swish & spit q6-8 etodolac 400 mg PO BID PRN gabapentin 900 mg (3 x 300 mg) PO BEDTIME Humira(CF) Pen (adalimumab) 40 mg (0.4 mL) subcut Q10D NS norethindrone (contraceptive) 0.35 mg PO DAILY omeprazole 20 mg PO BID tizanidine 4 - 8 mg (1 - 2 x 4 mg) PO BEDTIME PRN tramadol 50 - 100 mg PO BID triamcinolone acetonide 0.5% appl topical verapamil ER 240 mg PO DAILY HPI Comments Details: Patient is a 39-year-old female with depression/anxiety, GERD, restless legs syndrome and non radiographic axial spondyloarthritis here today for follow up Interval History: Patient last seen 07/06/[address] Millan. At that time she was on Humira 40 mg every 10 days as well as etodolac 400 mg daily. She had no complaints and denied joint pain. Her exam was consistent with remission of her disease and no changes were made to her medication Today, She states that she is doing well No new concerns Rheumatologic History: Non radiographic axial spondyloarthritis Started SSZ 12/2018.? helpful.? caused migraines These resolved on cessation of med.? Started Humira July 2019 with dramatic improvement- advanced to every 10 days sometime in 2020 Current Rheumatology Medication(s): Humira 40 mg sc every 10 days Etodolac 400 mg daily COUNT INCLUDES THE [facility] Medical History Non-radiographic axial spondyloarthritis Low back pain Hypertension Multiple joint pain Psoriasis Migraine Surgical History Hx of section Family History Sister Asthma Mother Hyperlipidemia Hypertension Mental disorder Diabetes Seizure Father Hypertension FH: malignant neoplasm of prostate Maternal Grandmother Carcinoma of breast Social History Household Members: Family and Children Alcohol intake: current Alcohol intake frequency: holidays/special occasions only Patient Tobacco Use Status: Current everyday Tobacco user Tobacco use type: Cigarette Cigarette Packs Per Day: 4 Current occupational status: employed 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 Review of Systems Const Details: Review of Systems Constitutional: Denies fever, chills, weight loss ENT: Denies vision changes, eye pain or eye redness, dental caries, dry mouth GI: Denies nausea, vomiting, diarrhea, abdominal pain, change in BM Pulm: Denies SOB, GARCIA, hemoptysis, wheezing Cards: Denies chest pain, palpitations Skin: Denies Raynaud's, rash, nail changes, photosensitivity, ENTRY LEVEL 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 Well appearing and in no apparent painful distress HEENT Conjunctiva and sclera clear. ?Pupils equal round and reactive to light. ?No lymphadenopathy. ? CHEST/RESPIRATORY SYSTEM Normal respiratory effort and able to speak in complete sentences. ?Clear to auscultation bilaterally. ?No crackles, rales, rhonchi, wheezes heard. CARDIAC SYSTEM Regular rate and rhythm. ?S1 and S2 heard no murmurs. ?Radial pulses intact bilaterally MSK Hands: ?Good licensed sales producer strength bilaterally. No deformities noted. ?No synovitis noted to the MCPs, PIPs or DIPs. ?No tenderness to palpation of these joints. Wrists: ?Full range of motion at the wrists without pain. ?No tenderness to palpation or synovitis noted to the wrists. Elbows: Full range of motion without pain. No tenderness, weakness, swelling, increased warmth or erythema. Shoulders: Full range of motion without pain. No tenderness, weakness, swelling, increased warmth or erythema. Hips: Full range of motion without pain. Hip bursa: No tenderness to palpation Knees: ?Full range of motion. ?No tenderness, swelling, increased warmth or erythema.?No effusion or crepitations Ankles: Full range of motion. ?No tenderness, swelling, increased warmth or erythema.? Feet: ?Negative squeeze test. ?No tenderness to palpation or swelling of the MTPs. Tender points:?No tenderness to palpation of the bilateral trapezius, supraspinatus, greater trochanters, anterior costochondral junctions, bilateral gluteal areas, bilateral suboccipital muscle insertions SKIN Skin intact without rashes. Results Reviewed Results Reviewed: Laboratory Tests 11/02/24 11:43 WBC 11.6 H RBC 4.90 Hgb 13.4 Hct 41.6 Plt Count 381 ESR 12 Sodium 139 Potassium 4.1 Chloride 107 Carbon Dioxide 28 BUN 12 Creatinine 0.77 Calcium 8.8 D Total Bilirubin 0.3 AST 12 ALT 12 Alkaline Phosphatase 64 C-Reactive Protein 0.50 Total Protein 7.9 Albumin 3.9 Infectious serologies 11/02/24 11:43 Hepatitis A IgM Ab Nonreactive Hep Bs Antigen Negative Hep Bs Antibody REACTIVE Hep B Core Total Ab Nonreactive Hepatitis C Ab (EIA) Nonreactive TB Test (T-Spot) Com Pending Assessment & Plan Assessment & Plan (1) Non-radiographic axial spondyloarthritis: Comment: Started SSZ 12/2018.? helpful.? caused migraines These resolved on cessation of med.? Started Humira July 2019 with dramatic improvement- advanced to every 10 days sometime in 2020 Code(s): M45.A0 - Non-radiographic axial spondyloarthritis of unspecified sites in spine Category: Medical Plan: #Non radiographic axial spondyloarthritis Patient is a 38-year-old female with non radiographic axial SpA presents for follow-up. Doing well overall on Humira 40 mg every 10 days. She also takes etodolac 400 mg daily. She has cut down from 400 mg Twice daily. Plan - Continue Humira 40 mg Q 10 days. - Continue gabapentin and tizanidine as prescribed - RTC 4 months - Labs before visit: CBC, CMP, ESR, CRP (2) Encounter for monitoring of adalimumab therapy: Code(s): Z51.81 - Encounter for therapeutic drug level monitoring; Z79.620 - long-term (current) use of immunosuppressive biologic Plan: #Long-term Use of TNF Inhibitors: Humira Discussed with the patient the benefits and risks of TNF inhibitors for the management of the rheumatic condition Benefits include reduce pain, maintenance of remission and reduction of flares as well as ?progression of the disease Risks include injection sites/infusion reactions, serious infections (such as bacterial infections, opportunistic infections), malignancy, delaminating syndromes, autoimmune phenomena, CHF exacerbations, palmar plantar psoriasis and cytopenias Recommended rotating injection sites, and holding medication during and for up to 1 week after resolution of a febrile illness or open skin wound Plan I spent 30 minutes reviewing the record and labs, taking a history, examining the patient, discussing the treatment plan and documenting in the medical record Orders: Orders Comprehensive Met. Panel 4 Months M45.A0 - Non-radiographic axial spondyloarthritis of unspecified sites in spine Erythrocyte Sedimentation Rate 4 Months M45.A0 - Non-radiographic axial spondyloarthritis of unspecified sites in spine Complete Blood Count Auto Diff 4 Months M45.A0 - Non-radiographic axial spondyloarthritis of unspecified sites in spine C Reactive Protein 4 Months M45.A0 - Non-radiographic axial spondyloarthritis of unspecified sites in spine Medications: Refilled Humira(CF) Pen (adalimumab) 40 mg (0.4 mL) subcut Q10D 3 ea 4RF NS M45.A0 - Non-radiographic axial spondyloarthritis of unspecified sites in spine etodolac 400 mg PO BID PRN 60 tabs 4RF for pain M45.A0 - Non-radiographic axial spondyloarthritis of unspecified sites in spine Coding Level of Care Code Est Pt Level 4 (86556) Complex EM visit Add On G2211 Diagnoses Non-radiographic axial spondyloarthritis M45.A0 Encounter for monitoring of adalimumab therapy Z51.81; Z79.620
[2024-11-03 14:47] VITALS: BP 120/80; PULSE 78; O2SAT 98; BMI 35.8
--- OUTSIDE RECORDS SUMMARY | 2024-11-03 17:53 | XMS_ITS | Data Portability ---
Author Organization [facility], , [facility] Address [address] [place] [address] Care Team Providers Care Assembler Molded Frames Name Role Phone [place] DIXON Primary Care Provider [facility] Detective Investigator [facility] Director Of Conservation ADELINE LEA Detective Investigator TONO MARTÍNEZ Manager Field Service [facility] Orthopedist KRYSTAL ONOFRE Venue Coordinator Assessment No assessment recorded. Plan of Treatment Reminders Order Date Submit Date Provider Last Modified By Organization Details Last Modified Time Details Appointments [facility] [place] t (20) 2024 03:10P M Daniel Vides MD Not available Not available Not available Frantz ss Visit 30 2024 09:00A M Ky Dixon MD Not available Not available Not available Lab bacter ial vagino sis + vagini tis panel, vagina l - source : vagina l 2023 024 [facility], [address] [place] [address], [id number], 06/30/2024 16:04:09 pregna ncy test, urine [address], [address] [place], [address], 06/30/2024 10:49:52 Referral sports medici ne referr al - 2 months should er pain. suspec t bicep tendon itis given ecrcis es 2024 025 Leonel Vides MD, [address] [place] [address], [id number], 11/03/2024 09:36:37 Procedures None record ed. Surgeries None record ed. Imaging US, pelvis , transa bdomin al + transv aginal - 38 y/o with pelvic pain, please assess for any abnorm ality. 2023 024 [facility] (Imaging), [address], [place], [address], 07/08/2024 15:30:16 Medication Orders triamc inolon e aceton frank 0.5 % topica l cream 2022 023 [facility], [address] [place], [address], 12/17/2022 11:23:04 Patient TargetsNo targets recorded. 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 susp ect bicep tendonitis given ecrcises Referring Physician: Ky Dixon, Family Medicine, Encounter Date: 10/30/2024 Results Created Date Observation Date Name Description Value Unit Range Abnormal Flag Note LastModifiedBy Organization Detail LastModifiedTime 04/13/20 24 04/13/2024 CBC WBC 10.38 K/??L 3.98-1 0.04 high Not Available [facility] [address] [place], [address], 04/13/2024 10:35:25 04/13/20 24 04/13/2024 CBC RBC 4.73 M/??L 3.93-5 .22 Not Available [address], [address], 04/13/2024 10:35:25 04/13/20 24 04/13/2024 CBC HGB 13.2 g/dL 11.2-1 5.7 Not Available [address], [address], 04/13/2024 10:35:25 04/13/20 24 04/13/2024 CBC HCT 40.8 % 34.1-4 4.9 Not Available [address], [address], 04/13/2024 10:35:25 04/13/20 24 04/13/2024 CBC MCV 86.3 fL 79.4-9 4.8 Not Available [address], [address], 04/13/2024 10:35:25 04/13/20 24 04/13/2024 CBC MCH 27.9 pg 25.6-3 2.2 Not Available [address], [address], 04/13/2024 10:35:25 04/13/20 24 04/13/2024 CBC MCHC 32.4 g/dL 32.2-3 5.5 Not Available [address], [address], 04/13/2024 10:35:25 04/13/20 24 04/13/2024 CBC plt 422 K/??L 182-36 9 high Not Available [address], [address], 04/13/2024 10:35:25 04/13/20 24 04/13/2024 CBC MPV 8.9 fL 9.4-12 .3 low Not Available [address], [address], 04/13/2024 10:35:25 04/13/20 24 04/13/2024 CBC neut% 37.3 % 34.0-7 1.1 Not Available [address], [address], 04/13/2024 10:35:25 04/13/20 24 04/13/2024 CBC neut# 3.87 1.56-6 .13 Not Available [address], [address], 04/13/2024 10:35:25 04/13/20 24 04/13/2024 CBC lymph % 47.5 % 19.3-5 1.7 Not Available [address], [address], 04/13/2024 10:35:25 04/13/20 24 04/13/2024 CBC lymph # 4.93 K/??L 1.18-3 .74 high Not Available [address], [address], 04/13/2024 10:35:25 04/13/20 24 04/13/2024 CBC mono% 12.1 % 4.7-12 .5 Not Available [address], [address], 04/13/2024 10:35:25 04/13/20 24 04/13/2024 CBC mono# 1.26 0.24-0 .56 high Not Available [address], [address], 04/13/2024 10:35:25 04/13/20 24 04/13/2024 CBC eo% 1.8 % 0.7-5. 8 Not Available [address], [address], 04/13/2024 10:35:25 04/13/20 24 04/13/2024 CBC eo# 0.19 0.04-0 .36 Not Available [address], [address], 04/13/2024 10:35:25 04/13/20 24 04/13/2024 CBC baso% 1.0 % 0.1-1. 2 Not Available [address], [address], 04/13/2024 10:35:25 04/13/20 24 04/13/2024 CBC baso# 0.10 0.00-0 .08 high Not Available [address], [address], 04/13/2024 10:35:25 04/13/20 24 04/13/2024 CBC RDW-CV 13.4 % 11.7-1 4.4 Not Available [address], [address], 04/13/2024 10:35:25 04/13/20 24 04/13/2024 CBC Ig% 0.300 % 0.000- 1.500 Ig % >0.5 Indic ates possi ble Left Shift Not Available [address], [address], 04/13/2024 10:35:25 04/13/20 24 04/13/2024 CBC Ig# 0.030 0.000- 0.093 Not Available [address], [address], 04/13/2024 10:35:25 04/13/20 24 04/13/2024 CBC NRBC% 0.0 % 0.0-0. 2 Not Available [address], [address], 04/13/2024 10:35:25 04/13/20 24 04/13/2024 CBC NRBC# 0.000 0.000- 0.012 Not Available [address], [address], 04/13/2024 10:35:25 04/13/20 24 04/13/2024 COMP. METAB OLIC PANEL glucose 85 mg/dL 70-100 Not Available [address], [address], 04/13/2024 11:19:46 04/13/20 24 04/13/2024 COMP. METAB OLIC PANEL BUN 11 mg/dL 7-18 Not Available [address], [address], 04/13/2024 11:19:46 04/13/20 24 04/13/2024 COMP. METAB OLIC PANEL creatinine 0.9 mg/dL 0.8-1. 3 Not Available [address], [address], 04/13/2024 11:19:46 04/13/20 24 04/13/2024 COMP. METAB OLIC PANEL B/C 12.2 ratio Not Available [address], [address], 04/13/2024 11:19:46 04/13/20 24 04/13/2024 COMP. METAB [...] be used in pregn nicky. Not Available [address], [address], 04/13/2024 11:19:46 04/13/20 24 04/13/2024 COMP. METAB OLIC PANEL sodium 140 mmol/ L 136-14 5 Not Available [address], [address], 04/13/2024 11:19:46 04/13/20 24 04/13/2024 COMP. METAB OLIC PANEL potassium 4.1 mmol/ L 3.5-5. 1 Not Available [address], [address], 04/13/2024 11:19:46 04/13/20 24 04/13/2024 COMP. METAB OLIC PANEL chloride 103 mmol/ L 96-107 Not Available [address], [address], 04/13/2024 11:19:46 04/13/20 24 04/13/2024 COMP. METAB OLIC PANEL anion gap 9.6 5.0-15 .0 Not Available [address], [address], 04/13/2024 11:19:46 04/13/20 24 04/13/2024 COMP. METAB OLIC PANEL CO2 27 mmol/ L 21-32 Not Available [address], [address], 04/13/2024 11:19:46 04/13/20 24 04/13/2024 COMP. METAB OLIC PANEL calcium 8.8 mg/dL 8.5-10 .3 Not Available [address], [address], 04/13/2024 11:19:46 04/13/20 24 04/13/2024 COMP. METAB OLIC PANEL total protein 7.0 g/dL 6.4-8. 2 Not Available [address], [address], 04/13/2024 11:19:46 04/13/20 24 04/13/2024 COMP. METAB OLIC PANEL albumin 3.2 g/dL 3.4-5. 0 low Not Available [address], [address], 04/13/2024 11:19:46 04/13/20 24 04/13/2024 COMP. METAB OLIC PANEL globulin 3.8 g/dL Not Available [address], [address], 04/13/2024 11:19:46 04/13/20 24 04/13/2024 COMP. METAB OLIC PANEL A/G 0.8 ratio 0.8-2. 0 Not Available [address], [address], 04/13/2024 11:19:46 04/13/20 24 04/13/2024 COMP. METAB OLIC PANEL total bilirubin 0.40 mg/dL 0.00-1 .00 Not Available [address], [address], 04/13/2024 11:19:46 04/13/20 24 04/13/2024 COMP. METAB OLIC PANEL AST 7 U/L 0-37 Not Available [address], [address], 04/13/2024 11:19:46 04/13/20 24 04/13/2024 COMP. METAB OLIC PANEL ALT 11 U/L 6-63 Not Available [address], [address], 04/13/2024 11:19:46 04/13/20 24 04/13/2024 COMP. METAB OLIC PANEL alk. phos. 66 U/L 50-136 Not Available [address], [address], 04/13/2024 11:19:46 04/13/20 24 04/13/2024 LIPID PANEL cholesterol 196 mg/dL <200 mg/dl Alejandrina able 200-2 39 mg/dl Borde rline High >240 mg/dl High Not Available [address], [address], 04/13/2024 11:19:46 04/13/20 24 04/13/2024 LIPID PANEL triglyceride s 81 mg/dL <150 mg/dL Naomi l 150-1 99 mg/dL Borde rline High 200-4 99 mg/dL High >500 mg/dL Very High Not Available [address], [address], 04/13/2024 11:19:46 04/13/20 24 04/13/2024 LIPID PANEL direct HDL 54 mg/dL <40 mg/dl - Major Risk for CHD >60 mg/dl - Negat sue Risk for CHD Not Available [address], [address], 04/13/2024 11:19:46 04/13/20 24 04/13/2024 LDL - [...] 0-1 risk facto r is not mono dasha. Not Available [address], [address], 04/13/2024 11:19:47 06/30/20 24 06/30/2024 POC HCG HCG POC NEGATI VE Not Available [facility] [address] [place] [address], [address], 06/30/2024 09:30:18 06/30/20 24 06/30/2024 BACTE RIAL VAGIN OSIS/ VAGIN ITIS bv, RNA BV POS negati ve abnormal The aptim a BV assay is utili zed for the detec tion of ribos omal RNA from violeta sharma cated with bacte dorotheal vagin osis( BV), inclu ding Lacto bacil lis (L. gasse ri, L. crisp stus, and L. jense stephanie), Gardn erell a vagin anthony, and Atopo bium vagin ae. The assay repor ts a quali tativ e resul t for BV and does not repor t resul ts for indiv idual organ isms. Not Available [address], [address], 06/30/2024 16:04:09 06/30/20 24 06/30/2024 BACTE RIAL VAGIN OSIS/ VAGIN ITIS yane species group (C. albicans, C. tropicalis, C. parapsilosis ), RNA C. SPP NEG negati ve normal Not Available [address], [address], 06/30/2024 16:04:09 06/30/20 24 06/30/2024 BACTE RIAL VAGIN OSIS/ VAGIN ITIS yane glabrata, RNA C. GLA NEG negati ve normal Not Available [address], [address], 06/30/2024 16:04:09 06/30/20 24 06/30/2024 BACTE RIAL VAGIN OSIS/ VAGIN ITIS trichomonas vaginalis, RNA TRICH NEG negati ve normal Not Available [address], [address], 06/30/2024 16:04:09 Result Notes None recorded. Problems Name Problem SNOMED Code Status Onset Date Resolution Date Notes Provider Name and Address Organization Details Recorded Time Benign hypertens ion 38126229 Active Mercedes Ca NP [address] [place] [address], [phone] , [facility] 3 11:13:54 Multiple joint pain 69465796 Active takes tramadol. Sees Dr. Suarez. 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 Mercedes Ca NP [address] [place] [address], [address] , [facility] 3 11:13:54 Low back pain 551136340 Active Mercedes Ca NP [address] [place] [address], [address] , [facility] 3 11:13:54 Problem Notes None recorded. Procedures Surgical History Date Name Laterality Status Provider Name and Address Organization Details Recorded Time 10/31/19 25 Smoking cessation counseling completed Siria Decker CMA [facility] 10/27/2024 10:31:47 03/26/20 23 Smoking cessation counseling completed Siria Decker CMA [facility] 03/26/2023 15:38:37 12/18/19 23 Smoking cessation counseling completed Crystal Spears [facility] 12/17/2022 11:03:44 10/01/19 23 Smoking cessation counseling completed Siria Decker [facility] 10/01/2022 10:43:16 04/06/20 22 Smoking cessation counseling completed Siria Decker [facility] 04/06/2022 08:39:49 03/16/20 22 Smoking cessation counseling completed Siria Decker [facility] 03/16/2022 13:38:29 05/23/20 21 Smoking cessation counseling completed Ansley Hinton NP [address] [place] [address], [phone], [facility] 05/23/2021 22:56:24 02/21/20 21 Smoking cessation counseling completed Siria Decker [facility] 02/20/2021 13:26:32 08/06/20 20 Smoking cessation counseling completed Ansley Hinton NP [address] [place] [address], [address], [facility] 08/06/2020 10:14:50 01/25/20 20 Smoking cessation counseling completed Siria Decker [facility] 01/25/2020 09:58:05 07/31/20 19 Smoking cessation counseling completed Siria Decker [facility] 07/31/2019 11:18:39 07/28/20 19 Smoking cessation counseling completed Nitesh Suarez MD [address] [place] [address], [address], [facility] 07/28/2019 15:28:03 05/29/20 19 Smoking cessation counseling completed Nitesh Suarez MD [address] [place] [address], [address], [facility] 05/31/2019 08:46:53 03/04/20 19 Smoking cessation counseling completed [facility] 03/04/2019 11:45:18 03/04/20 19 Carbon Monoxide Testing completed [facility] 03/04/2019 11:45:18 03/04/20 19 POC hCG Testing completed Laura Kulkarni [facility] 03/04/2019 12:12:41 01/07/20 19 Smoking cessation counseling completed Nitesh Suarez MD [address] [place] [address], [address], [facility] 01/06/2019 18:56:41 12/30/19 19 Smoking cessation counseling completed Siria Decker [facility] 12/29/2018 09:53:05 12/17/19 19 Smoking cessation counseling [facility] 12/16/2018 13:55:00 07/04/20 18 Smoking cessation counseling completed Siria Decker [facility] 07/04/2018 10:42:38 04/25/20 18 Smoking cessation counseling completed Leonor Noriega [facility] 04/25/2018 09:55:00 12/24/19 18 Smoking cessation counseling completed Siria Decker [facility] 12/23/2017 09:34:21 06/13/20 17 Smoking cessation counseling completed Priscilla Sawant [facility] 06/13/2017 10:51:19 03/11/20 17 Smoking cessation counseling completed Priscilla Sawant [facility] 03/11/2017 14:35:31 03/04/20 17 Smoking cessation counseling completed Jan Perez [employer] [facility] 03/04/2017 16:24:31 03/04/20 17 Carbon Monoxide Testing completed Jan Perez [facility] 03/04/2017 16:24:31 12/15/19 17 Smoking cessation counseling completed Noy Saavedra [facility] 12/14/2016 10:23:15 12/15/19 17 Carbon Monoxide Testing completed Noy Saavedra [facility] 12/14/2016 10:26:34 09/28/19 17 Smoking cessation counseling completed Ariel [facility] 09/28/2016 10:51:25 09/28/19 17 Carbon Monoxide Testing completed Ariel [facility] 09/28/2016 11:06:25 09/28/19 17 POC Strep Testing completed [facility] 09/28/2016 11:06:29 10/24/19 16 Smoking cessation counseling completed Noy Saavedra [facility] 10/24/2015 15:29:53 01/25/20 15 completed Noy Sandoval NP [address] [place], [address], [facility] 02/08/2015 21:42:20 12/23/19 15 Smoking cessation counseling completed Maisha Ron [facility] 12/22/2014 14:37:09 11/20/19 15 Smoking cessation counseling completed Maisha Ron [facility] 11/19/2014 09:53:14 08/27/19 15 Smoking cessation counseling completed Maisha Ron [facility] 08/27/2014 09:13:45 06/21/20 14 Smoking cessation counseling completed Maisha Ron [facility] 06/21/2014 11:52:26 02/21/20 12 Treatment and Advice completed Gloria Gonzalez Mph, LPT [address] [place], [address], [facility] 02/21/2012 15:49:02 02/12/20 12 Treatment and Advice completed Gloria Gonzalez Mph, LPT [address] [place], [address], [facility] 02/12/2012 14:06:28 02/05/20 12 Smoking cessation counseling completed Gino Mcclure [facility] 02/05/2012 10:49:24 Imaging Results None recorded. Procedure Notes None recorded. Medical Equipment None Reported. Allergies Allergen ID Allergen Name Allergen Category Reaction Reaction Severity Criticality Documentation Date Start Date Code Code System Note Provider Name and Address Organization Details Recorded Time 19830429 strawberr y allergeni c extract food Not available Not available Not available 03/11/2017 62714 4 RxNorm Pt no longe r aller gice to straw berri es NMT, not aller gic humir samantha Pedersen LPN [facility] 2 10:07:35 87099 Erythroci n medicatio n anaphylax is Not available Not available 10/21/2009 75987 3 RxNorm Not Available [facility] 1 06:05:20 508699 pumpkin allergeni c extract food,medi cation Not available Not available Not available 06/30/2024 35459 9 [facility] 4 09:17:35 30601 erythromy guanako medicatio n anaphylax is Not available Not available 07/14/2010 4053 RxNorm Not Available [facility] 1 06:05:41 Medications Name Sig Start Date [...] 2x/wk as needed. 2014 active CHANGED TO TRORES SPRINGER BY RAHDA ON 11/19/14 Not Available Not Available Not [...] Not Available Not Available Not Available vitamin E54-gbyrn acid 12/14 completed Not Available Not Available [...] Updated DateTime 3 157.48 cm 35.1 kg/m2 95048.7 4 g 60 /min 118 mm[Hg] 78 mm[Hg] Crystal Spears [facility] 3 11:05:05 Date Recorded Body height Body mass index (BMI) Body weight Heart rate Systolic blood pressure Diastolic blood pressure Provider Name and Address Organization Details Last Updated DateTime 3 157.48 cm 34.2 kg/m2 30571.7 7 g 60 /min 122 mm[Hg] 80 mm[Hg] Siria Decker [facility] 3 15:46:38 Date Recorded Body weight Body mass index (BMI) Body height Systolic blood pressure Diastolic blood pressure Provider Name and Address Organization Details Last Updated DateTime 04/17/2024 66706.06 g 34.6 kg/m2 157.48 cm 128 mm[Hg] 80 mm[Hg] Eugeniechin Brennanpriyanka [facility] 4 13:48:04 Date Recorded Body height Body mass index (BMI) Body weight Heart rate Systolic blood pressure Diastolic blood pressure Provider Name and Address Organization Details Last Updated DateTime 4 157.48 cm 35.3 kg/m2 75573.3 3 g 60 /min 120 mm[Hg] 80 mm[Hg] Dary Gutierres [facility] 4 09:19:17 Date Recorded Body height Body mass index (BMI) Body weight Oxygen saturation Oxygen saturation in Arterial blood by Pulse oximetry Heart rate Systolic blood pressure Diastolic blood pressure Provider Name and Address Organization Details Last Updated DateTime 5 157.48 cm 35.3 kg/m2 57163.7 3 g 99 % 99 % 65 /min 128 mm[Hg] 80 mm[Hg] Rossi Zhao [facility] 5 08:36:35 Social History Question Answer Notes LastModified by Organizat ion Details LastModified Time Tobacco Smoking Status Current Every Day Smoker 1/4 cigarettes daily 05/23/21 NMT 08/06/20 srp <1ppd 09/28/16 [facility] null, [facility] 05/23/2021 14:01:06 Do You Have An Advance [...] available 01/03/2015 Are You Currently Employed? Yes [email or web address] Information not available 04/17/2024 What Type Of [...] available 04/20/2024 Marital Status From Hernandez Caban Information not available 02/20/2021 Mosquito Repellent Used Routinely Yes Information not available 12/22/2014 What Was The Date Of Your Most Recent Tobacco Screening? 10/30/2024 Information not available 10/30/2024 How Many Children Do You Have? 1 Venkat 02/02/15. Information not available 02/20/2021 What Is Your Current Pack Years? 10packyears Started Smoking At 19. 5years Smoked 1/2ppd . Prior To That Smoke 1ppd., 3 A Day 09/26/21 Ramón [email or web address] Information not available 09/26/2021 What Is Your Relationship Status? [facility] Information not available 10/01/2022 Do You Use Your Seat Belt Or Car Seat Routinely? Yes [email or web address] Information not available 04/17/2024 Seat Belts Used Routinely Yes Information not available 12/22/2014 Are You Sexually Active? No [email or web address] Information not available 10/01/2022 Smoke Alarm In Home Yes Information not available 12/22/2014 Do You Have Smoke And Carbon Monoxide Detectors In Your Home? Yes [email or web address] Information not available 04/17/2024 Do You Or Have You Ever Used Smokeless Tobacco? Never Used Smokeless Tobacco Information not available 08/06/2020 How Much Tobacco Do You Smoke? 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 She Cares For Him. [facility] Information not available 02/20/2021 Do You Use Any Illicit Or Recreational Drugs? No [email or web address] Information not available 04/17/2024 Do You Use Sunscreen Routinely? Yes Information not available 12/22/2014 Do You Or Have You Ever Used Any Other Forms Of Tobacco Or Nicotine? No [email or web address] Information not available 05/23/2021 Sex: Unknown Functional [...] Y RHEUMATOLOGIC Migraine Headaches Y Hypertension Y psoriasis Asthma Y Gynecological History Statement/Question Response Menses Monthly N History of Abnormal Pap Y Current Control Method BCPs Age at Menarche 12 Obstetrics History GPAL:G 0 P 0 0 0 0 Immunizations Vaccine Type Date Status Note Provider Nam e and Address Organization Details Recorded Time Td(adult) unspecified formulation 0 completed Not Available [facility] 09/26/2019 02:10:36 Influenza, split virus, quadrivalent, PF 9 completed Not Available [facility] 09/12/2019 02:24:36 Pneumococcal conjugate PCV 13 0 completed Ky Dixon MD [address] [place] [address], [phone], [facility] 11/02/2019 12:57:53 Tdap 3 completed KAREN Fishman, [facility] 12/17/2022 13:35:57 COVID-19, mRNA, LNP-S, PF, 30 mcg/0.3 mL dose 1 completed Ila Wyatt CMA null, [facility] 05/23/2021 14:01:58 COVID-19, mRNA, LNP-S, PF, 30 mcg/0.3 mL dose 1 completed Ila Wyatt, [employer] null, [facility] 05/23/2021 14:02:16 COVID-19, mRNA, LNP-S, PF, 30 mcg/0.3 mL dose 2 completed Siria Decker, [employer] null, [facility] 09/04/2021 08:35:11 Past Encounters Encounter ID Performer Location Encounter Start Date Encounter Closed Date Diagnosis/Indication Diagnosis SNOMED-CT Code Diagnosis ICD10 Code Diagnosis Note [id number] , [facility], OFFICE [address] [facility] [place] [address] 10/21/2009 13:57:16 10/27/2009 08:36:03 [id number] LING Encinas, [facility], OFFICE [address] [facility] [place] [address] 02/01/2010 15:07:23 02/06/2010 13:51:34 [id number] LING Encinas [facility], OFFICE [address] [facility] [place] [address] 03/01/2010 14:44:28 03/08/2010 09:45:37 [id number] DONIS [facility], OFFICE [address] [facility] [place] [address] 07/14/2010 09:49:08 07/19/2010 10:21:34 [id number] ZAIRE Marks [facility], [facility] [address] [facility] [place] [address] 07/04/2011 14:42:15 07/04/2011 15:56:39 [id number] [facility], OFFICE [address] [facility] [place] [address] 02/05/2012 10:45:49 02/05/2012 11:22:38 [id number] Physical Therapy, [facility] [address] [facility] [place] [address] 02/12/2012 13:16:25 02/12/2012 14:44:16 [id number] Physical Therapy, [facility] [address] [facility] [place] [address] 02/21/2012 14:44:48 02/22/2012 07:49:25 [id number] Maisha Ron CMA , [facility], OFFICE [address] [place] [id number] 11/19/2012 08:04:56 11/19/2012 08:45:30 [id number] Odilia Menendez , [facility], OFFICE [address] [place] [address]381 6 06/21/2014 11:29:11 06/21/2014 12:35:54 Gastroesophageal reflux disease 036461856 [id number] Ky Dixon MD , [facility], OFFICE [address] [place] [address] 02440-222 6 07/07/2014 16:04:48 07/09/2014 08:08:19 Sinusitis [id number] , [facility], OFFICE [address] [place] [address] 60188-088 6 08/27/2014 08:57:00 08/27/2014 09:53:39 Adult health examination 757461109 see Risk Assessment and Lifestyle Change Counseling section above Counseling [id number] Tobacco user 041035058 Arthritis 7996809 Asthma 428315228 Migraine 70834693 Benign hypertension 07964869 [id number] Nicole Ferrer , [facility], OFFICE [address] [place] [address] 42978-405 6 11/19/2014 09:44:28 11/19/2014 10:22:25 Weight increased 439162802 Eruption 592974974 Migraine 01706591 Sprain of ankle 52382775 Amenorrhea 98277632 [id number] ZAIRE Marks , [facility], OFFICE [address] [place] [address] 14631-664 6 12/22/2014 14:16:32 12/22/2014 15:07:48 Tobacco user 616332849 Joint pain 56430891 Amenorrhea 50927726 [id number] Goivanni Stuart LPN , [facility], OFFICE [address] [place] [address] 28969-786 6 01/03/2015 09:51:09 01/03/2015 12:45:00 Discharge from nipple 05318167 very unanticipa yumiko , will return in 48 hours and confirm w serumHcG Administra tion of pneumococcal vaccine 49121905 Benign hypertension 35052946 [id number] , [facility], OFFICE [address] [place] [address] 98633-724 6 01/05/2015 09:49:39 01/05/2015 11:18:27 51312704 feels well, approx. 6 weeks on 01/04/15 OB referral given Encouraged to quit smoking and advised there is no safe amt of alcohol in [id number] Noy Sandoval NP , [facility], OFFICE [address] [place] [address] 64503-146 6 02/07/2015 15:03:35 02/07/2015 17:12:26 care 230283385 c section incision clean and dry, steri strips intact. [id number] Noy Sandoval NP , [facility], OFFICE [address] [place] [address] 17207-312 6 02/14/2015 11:52:43 02/14/2015 12:34:09 care 635243283 incision clean, smll area of redness and ss drng on pad, d/w Dr Pearce and seen as well. Will have follow up w midwives, s/s infection and reasons to return sooner reviewed [id number] Noy Sandoval NP , [facility], OFFICE [address] [place] [address] 54278-065 6 03/23/2015 09:27:00 03/23/2015 11:11:22 care 594861640 was anemic post C section, will re check CBC and iron studies started taking OCP last week [id number] ZAIRE Marks Rheumatol senia, [facility] [address] [place] [address] 04/08/2015 09:00:18 04/11/2015 08:05:36 Multiple joint pain 21641336 This 29 y/o woman has had years [...] In future could consider addressing sleep issues. [id number] Madeline Núñez , [facility], OFFICE [address] [place] [address] 04/26/2015 10:50:36 04/26/2015 11:33:34 Nasopharyngitis 66835257 [id number] Rheumatol [facility], [facility] [address] [place] [address] 05/27/2015 10:40:25 05/30/2015 12:05:38 Multiple joint pain 24676860 M25.50 This 29 y/o woman has had [...] pursue the possibilit y of spondyloar thropathy. [id number] Nitesh Suarez MD Rheumatol chika, [address] [address] 06/16/2015 11:13:35 06/16/2015 15:39:59 Multiple joint pain 43116598 M25.50 I continue to have some suspicious [...] pursue the possibilit y of spondyloar thropathy. [id number] Nitesh Suarez MD Rheumatol chika, [address] [address] 07/26/2015 14:06:47 07/26/2015 14:45:59 Multiple joint pain 52237427 M25.50 Marked improvemen t on the high [...] exercise and weight loss. Long-term drug therapy 852249666 Z79.1 [id number] Lenora Burnett , [facility], OFFICE [address] [place] [address] 10/24/2015 14:53:25 10/24/2015 16:01:23 Adult health examination 052917290 Z00.00 see Risk Assessment and Lifestyle Change Counseling section above Counseling 102643028 Z71 .9 Nicotine dependence 5629 4008 Z87.891 Tobacco user 583542159 Z 72.0 Female sterilization 608 43906 Z30.2 [id number] Malini Hare MD , [facility], OFFICE [address] [place] [address] 11/03/2015 13:45:05 11/03/2015 14:26:53 Strain of muscle of chest wall 486810224 S29.011A my impression is that this swelling [...] maternal grandmothe r and 2 maternal aunts. [id number] Lenora Lex , [facility], OFFICE [address] [place] [address] 01/04/2016 09:17:38 01/04/2016 14:30:26 [facility] [id number] [facility] [id number] Nitesh Suarez MD Rheumatol senia, [facility] [address] [place] [address] 1 01/25/2016 09:49:30 01/26/2016 06:21:43 Multiple joint pain 98792052 M25.50 Marked improvemen t on the high [...] including ESR and CRP. Long-term drug therapy 754066897 Z79.1 Update labs. Low back pain 334065342 M54.5 Mixed picture of inflammat ory and mechanica l LBP. Etodolac helping with inflammati on. Try changing to Baclofen for sleep promotion and muscular spasm. [id number] ANTIONETTE Quintanilla , [facility], OFFICE [address] [place] [address] 09/28/2016 10:43:12 09/28/2016 12:37:29 Acute upper respiratory infection 64570483 J06.9 Educated patient that URI is a [...] to resolve in 2-4 weeks. Cigarette smoker 6333630 7 F17.210 Tobacco user 331069090 Z 72.0 has been able to cut back for this illness, but not sure she's ready to quit Pain in throat 855889976 R07.0 [id number] Ky Dixon MD , [facility], OFFICE [address] [place] [address] 12/14/2016 10:15:27 12/17/2016 13:07:07 Cigarette smoker 99050408 F17.210 Benign hypertension 1072 5009 I10 Migraine 24158061 G43.90 9 Multiple joint pain 3567 8005 M25.50 [id number] Noy Saavedra , [facility], OFFICE [address] [place] [address] 03/04/2017 16:08:50 03/04/2017 16:59:21 Adult health examination 331742371 Z00.00 see Risk Assessment and Lifestyle Change Counseling section above Counseling 227059492 Z71 .9 Cigarette smoker 5651340 7 F17.210 Multiple joint pain 3567 8005 M25.50 Intolerant of cold 41187 000 R68.89 Migraine 07440454 G43.90 9 Benign ess ential hypertension 2036800 I10 [id number] Nitesh Suarez MD Rheumatol senia, [address] [place] [address] 03/11/2017 14:24:26 03/12/2017 07:41:32 Multiple joint pain 12231308 M25.50 Marked improvemen t on Etodolac. Inflammat [...] and some difficulty with sleep maintenanc e. Probably is describing restless leg syndrome. Cigarette smoker 8040597 7 F17.210 Discussed with patient advisabili ty of smoking cessation. Specifical ly emphasized that, in addition to other ills, smoking promotes inflammati on and that arthritis patients who smoke have less of a response to the anti-rheum atic drugs than non smokers. Offered encouragem ent to stop smoking. Provided resources to contact Tobacco user 764796272 Z 72.0 Anemia 559372794 D64.9 Mild anemia in past. Restless legs 16340394 G 25.81 Symptoms prominent in evening when trying to get to sleep.Disc ussed.Chec k iron studies.If iron normal, then I think it would be worthwhile trying her on some treatment. Probably will try gabapentin as it may help with RLS, sleep, and fibromyalg ia features. [id number] Nitesh Suarez MD Rheumatol senia, [address] [address] 1 06/13/2017 10:39:29 06/13/2017 12:00:14 Multiple joint pain 54204169 M25.50 Marked improvemen t on Etodolac. Inflammat ory back sxs dramatical ly better. If she misses a dose of NSAID, prompt return of sxs. HLA B27 negative. Continue etodolac 400 BID. On omeprazole . Discussed pros and cons. Try reducing dose to qod, but if any GI sxs, resume daily dose. Hx PUD. Cigarette smoker 0100106 7 F17.210 Discussed cessation again. More receptive, but still not ready to commit. Offered referral to cessation counseling . Said she would think about it. Tobacco user 265352391 Z 72.0 Restless legs 48372347 G 25.81 Prominent RLS helped dramatical ly with hs gabapentin . Tolerating fine.Will change to 600 qhs.Contin ue indefinite ly. [id number] Ky Dixon MD , [facility], OFFICE [address] [place] [address] 6 12/23/2017 09:16:41 12/23/2017 10:22:51 Benign essential hypertension 0757983 I10 Blood pressure at goal of less tahn 140/90. Cigarette smoker 9468434 7 F17.210 Multiple joint pain 3567 8005 M25.50 Migraine 85801262 G43.90 9 [id number] Cale Douglass PA-C , [facility], OFFICE [address] [place] [address] 6 02/05/2018 09:49:48 02/05/2018 11:31:56 Retained foreign body in eye 83106042 H44.702 Eyelash removed with flushing today.Cont inue lubricatin g eye drops for comfort.F/ U for worsening or failure to improve within 3-4 days. [id number] Iris AGATA Morgan , [facility], OFFICE [address] [place] [address] 6 04/25/2018 09:53:30 04/25/2018 10:11:35 Cigarette smoker 86563895 F17.210 Tobacco user 564724848 Z 72.0 Contact de rmatitis caused by urushiol from [facility] [place] 806073968 L25.5 Above the L eye, at this point not affecting her visionWill treat with prednisone taperRetur n to clinic for worsening or unresolved symptoms [id number] Ky Dixon MD , [facility], OFFICE [address] [place] [address] 07/04/2018 10:29:17 07/04/2018 11:36:20 Adult health examination 600643765 Z00.00 see Risk Assessment and Lifestyle Change Counseling section above Counseling 704255179 Z71 .9 Depression screening 171 628970 Z13.89 depression screening tool administer ed, entered into emr, scored Benign ess ential hypertension 8954039 I10 Blood pressure at goal Cigarette smoker 8308496 7 F17.210 Migraine 32601502 G43.90 9 Eczema 57930504 L30.9 [id number] Nitesh Suarez MD Rheumatol og, [facility] [address] [facility] [place] [address] 12/16/2018 13:52:52 12/16/2018 14:34:42 Multiple joint pain 26656938 M25.50 Back pain with prominent inflammato ry [...] for Humira. Return 2 mo. Cigarette smoker 5740370 7 F17.210 Discussed cessation again. More receptive, but still not ready to commit.Has cut down. Offered referral to cessation counseling . Said she would think about it. Tobacco user 800045775 Z 72.0 Bilateral trochanteric bursitis 2889305984 2860156 M70.61 M70.62 Findings of bilat troch bursitis. Will very likely respond to local injection. Schedule u/s injeciton. Restless legs 44369753 G 25.81 Prominent RLS helped dramatical ly with hs gabapentin . Tolerating fine.Will change to 900 qhs.Contin ue indefinite ly. Hip pain 61538869 M25.55 9 bilat trochanter ic pain. Low back pain 639085864 M54.5 Mixed picture of inflammat ory and mechanica l LBP. [id number] Ky Dixon MD , [facility], OFFICE [address] [place] [address] 12/29/2018 09:49:52 12/29/2018 10:38:51 Cigarette smoker 48414737 F17.210 Benign hypertension 1072 5009 I10 Multiple joint pain 3567 8005 M25.50 Migraine 12908172 G43.90 9 [id number] Nitesh Suarez MD Rheumatol [facility], [facility] [address] [place] [address] 01/06/2019 15:36:50 01/06/2019 16:11:37 Multiple joint pain 49782280 M25.50 Back pain with very prominent inflammato [...] for Humira. Return 2 mo. Cigarette smoker 1217973 7 F17.210 Discussed cessation again. More receptive, but still not ready to commit.Has cut down. Tobacco user 401814724 Z 72.0 Bilateral trochanteric bursitis 3701742244 4846134 M70.61 M70.62 Findings of bilat troch bursitis. Will very likely respond to local injection. Schedule u/s injeciton. Restless legs 73737168 G 25.81 Prominent RLS helped dramatical ly with hs gabapentin . Tolerating fine.Will change to 900 qhs.Contin ue indefinite ly. Non-radiog raphic axial spondyloarthritis 042958952 M46.90 Back pain with very prominent inflammato [...] any improvemen t, strongly consider Humira etc. [id number] Bjorn Cox PA-C , [facility], OFFICE [address] [place] [address] 03/04/2019 11:41:43 03/05/2019 13:20:38 Migraine 53756744 G43.909 Refer to discussion section for complete summary of visit. Tobacco user 252457754 Z 72.0 Discussed and encourage smoking cessation. Patient contemplat ing but not ready. Encourage follow up if needing assistance with this. Nausea and vomiting 1691999 R11.2 Reported a while on OCP.- Neg [id number] Nitesh Suarez MD Rheumatol [facility], [facility] [address] [place] [address] 05/29/2019 14:28:44 05/29/2019 15:32:02 Migraine 93953946 G43.909 Had substantia l increase in frequency and severity while on full dose SSZ.Headac hes were incapacita ting with photophobi a and phonophobi a, nausea. Occurred upt every 3 days. Much better off the SSZ.Primar y Care had suggested neuro follow up, but I don't think this is needed at present. Tobacco user 096319552 Z 72.0 Cigarette smoker 9136648 7 F17.210 Discussed cessation again. More receptive, but still not ready to commit.Has cut down. Pointed out smoking promotes inflammati on. Non-radiog raphic axial spondyloarthritis 200494173 M46.90 Back pain with very prominent inflammato [...] Return 4 mo or sooner if needed. jail current use of non-steroidal anti-inflammatory drug 4012027514 58479 Z79.1 Pt on long term care administrator NSAID therapy. Discussed GI and cardiovasc ular risks. Taking omeprazole . Periodic labs needed. [id number] Nitesh Suarez MD Rheumatol senia, [facility] [address] [place] [address] 07/28/2019 13:12:46 07/28/2019 13:59:33 Non-radiographic axial spondyloarthritis 221858238 M46.90 Back pain with very prominent inflammato [...] mo or sooner if needed. Tobacco user 725850709 Z 72.0 Cigarette smoker 1943217 7 F17.210 Discussed cessation again. More receptive, but still not ready to commit.Has cut down. Pointed out smoking promotes inflammati on. [id number] Siria KAREN Decker , [facility], OFFICE [address] [place] [address] 07/31/2019 11:15:10 07/31/2019 11:55:53 Cigarette smoker 48693610 F17.210 Benign hypertension 1072 5009 I10 Low back pain 395492435 M54.5 Multiple joint pain 3567 8005 M25.50 Migraine 28068865 G43.90 9 Non-radiog raphic axial spondyloarthritis 650613183 M46.90 Active or passive immunization 805158527 Z23 [id number] Nitesh Suarez MD Rheumatol [facility], [facility] [address] [place] [address] 10/27/2019 09:56:24 10/27/2019 16:47:44 Non-radiographic axial spondyloarthritis 161047994 M46.90 Back pain with very prominent inflammato [...] mo or sooner if needed. Chronic diarrhea 4102664 09 K52.9 Patient had this since a teenager. It was so constant, she did not consider it abnormal.I find it quite interestin g that years of daily diarrhea resolved coincident with her starting the Humira. This hints at possible underlying IBD.I don't know whether this should prompt a GI referral. She should discuss with Primary Care. Long-term drug therapy 895477585 Z79.899 On Humira. probably will be on this long term care administrator.Updat e labs. [id number] Ky Dixon MD , [facility], OFFICE [address] [place] [address] 11/02/2019 09:37:49 11/02/2019 09:54:59 Active or passive immunization 572041472 Z23 [id number] Ky Dixon MD FP, [facility], OFFICE [address] [place] [address] 01/25/2020 13:43:47 01/26/2020 11:47:02 Cigarette smoker 23885874 F17.210 not ready to quit Essential hypertension 87848527 I10 contorlled on verapmil Multiple joint pain 3567 8005 M25.50 discussed plant paradox diet. Migraine 01476255 G43.90 9 better [id number] Xavier Corley MD Rheumatol og, [address] [address] 04/12/2020 14:22:00 04/13/2020 12:59:13 Non-radiographic axial spondyloarthritis 641545755 M46.90 Back pain with very prominent inflammato ry characteri stics. HLA B27 negative. X rays normal. Dramatic (but incomplete ) response to NSAID.She has had a DRAMATIC response to Humira. Continue Humira for now. Patient asked to slowly taper down edotolac to twice a day.Check labs.Patie nt to get flu shot in the fall. Got PCV 13 in 11/12. [id number] Ansley Hinton NP , [facility], OFFICE [address] [place] [address] 08/06/2020 09:37:56 08/08/2020 15:19:33 Urinary tract infectious disease 02682510 N39.0 will treat uncomplica yumiko UTI based on classic Sx. no fever, abd pain, or flank pain. abx as prescribed . Pyridium as needed, will likely turn urine orange/red . follow up if not improving in 2-3 days, new back pain, or fever. try not to avoid using the bathroom at work Cigarette smoker 5970912 7 F17.210 working on gradual taper. wellbutrin helps. gets quitters win texts Tobacco user 876601866 Z 72.0 Benign hypertension 1072 5009 I10 Not at goal of <130/80 today but usually is. she will monitor BP at home over the next couple weeks and report [id number] Xavier Corley MD Rheumatol senia, [address] [address] 2020 10:12:31 2020 19:40:03 Non-radiographic axial spondyloarthritis 440264185 M46.90 Back pain with very prominent inflammato [...] signs of infection. Patient verbalizes understand ing. [id number] Xavier Corley MD Rheumatol senia, [address] 6 12/05/2020 07:50:41 12/05/2020 12:11:38 Non-radiographic axial spondyloarthritis 069333575 M46.90 Back pain with very prominent inflammato [...] signs of infection. Patient verbalizes understand ing. [id number] Ky Dixon MD , [facility], OFFICE [address] [place] [address] 6 02/20/2021 13:20:49 02/21/2021 14:27:33 Essential hypertension 46656670 I10 contorlled on verapmil Cigarette smoker 8194275 7 F17.210 not ready to quit Multiple joint pain 3567 8005 M25.50 Seems better. Non-radiog raphic axial spondyloarthritis 012583573 M46.90 continue humira [id number] Andree Stark , [facility], OFFICE [address] [place] [address] 6 05/23/2021 13:45:37 05/23/2021 16:57:52 Cigarette smoker 91551188 F17.210 working on gradual taper. wellbutrin helps. gets quitters win texts Tobacco user 933244471 Z 72.0 Abdominal pain 78769057 R10.9 seems to be a significan t gerd flare with heart burn, abd pain, vomiting, hematemesi s. increase omeprazole to BID. avoid triggering foods. small meals. elevate the head of your bed. labs. referred to GI urgently. Hematemesis 6176967 K92. 0 likely mariana-we iss tear after forceful/r epeated vomiting. no hematochez ia or dark tary stool. monitor and report recurrent or persistent symptoms, lethargy, dizziness, or other new concerns [id number] Xavier Corley MD Rheumatol senia, [facility] [address] [place] [address] 08/31/2021 10:00:44 08/31/2021 12:44:49 Non-radiographic axial spondyloarthritis 792785134 M46.90 Back pain with very prominent inflammato [...] tramadol slowly.RTC in 4 months. Restless legs 94499522 G 25.81 On Gabapentin .Having symptoms.W ill check with pcp on adjusting therapy. [id number] BRIANDA Ni FP, [facility], OFFICE [address] [place] [address] 09/26/2021 16:41:40 09/26/2021 17:15:17 Pain of right shoulder joint 7791451547 1084052 M25.511 Suspect strain/spr ain, pt has FROM of shoulderWi ll get xrayDiscus sed supportive carePt to contact the office if no improvemen t or any worsening symptoms [id number] Ky Dixon MD FP, [facility], OFFICE [address] [place] [address] 03/16/2022 13:17:48 03/16/2022 14:16:52 Adult health examination 097690770 Z00.00 see Risk Assessment and Lifestyle Change Counseling section above Counseling 478071065 Z71 .9 Depression screening 171 695286 Z13.31 depression screening tool administer ed, entered into emr, scored and discussed. Screening for alcohol abuse 869631588 Z13.39 Tobacco user 726628017 Z 72.0 discussed. Essential hypertension 49853050 I10 controlled on verapamil Non-radiog raphic axial spondyloarthritis 553601665 M46.90 continue humira, tramadol, [id number] Ky Dixon MD , [facility], OFFICE [address] [place] [address] 04/06/2022 08:39:07 04/10/2022 07:50:04 Acute upper respiratory infection 46603187 J06.9 Tobacco user 432150201 Z 72.0 discussed. Has stopped due to pain. Discussed keeping off as her desire was to quit. Acute pharyngitis 836548 003 J02.9 possible strep. will do cutue. Will come in at 10 PM to do that. [id number] Ky Dixon MD , [facility], OFFICE [address] [place] [address] 6 10/01/2022 10:34:28 10/01/2022 11:05:21 Tobacco user 888329866 Z72.0 We discussed your smoking today for more than 3 minutes. Cigarette use is the leading cause of preventabl e disease, disability , and in the [place]. We talked about tools and medication s available to help you in smoking cessation. We discussed utilizing our smoking cessation process coach and online resources. Your personal goal: Essential hypertension 73657254 I10 128/80 controlled on verapamil, continue 240 mg. Non-radiog raphic axial spondyloarthritis 559456476 M45.A0 continue humira, tramadol, etodolac, tizanidine . Restless legs 49220928 G 25.81 [id number] Mercedes Ca NP , [facility], OFFICE [address] [place] [address] 12/17/2022 10:30:42 12/18/2022 09:14:57 Tobacco user 541235860 Z72.0 We discussed your smoking today for more than 3 minutes. Cigarette use is the leading cause of preventabl e disease, disability , and in the [place]. We talked about tools and medication s available to help you in smoking cessation. We discussed utilizing our smoking cessation process coach and online resources. Not ready to quit. Bee sting 628643505 T63. 91XA increase benadryl to 2- 3 x per day-ice 2-3 x per day-call if not imrpoving Non-radiog raphic axial spondyloarthritis 015186000 M45.A0 -stable on meds Active or passive immunization 968867002 Z23 [id number] Ky Dixon MD , [facility], OFFICE [address] [place] [address] 03/26/2023 15:10:38 03/27/2023 08:57:17 Adult health examination 448985859 Z00.00 see Risk Assessment and Lifestyle Change Counseling section above Depression screening 171 065360 Z13.31 depression screening tool administer ed Screening for alcohol abuse 348696717 Z13.39 Alcohol use screening tool administer ed Tobacco user 242920857 Z 72.0 We discussed your smoking today for more than 3 minutes. Cigarette use is the leading cause of preventabl e disease, disability , and in the [place]. We talked about tools and medication s available to help you in smoking cessation. We discussed utilizing our smoking cessation process coach and online resources. Your personal goal: to quit. at some point. Benign hypertension 1072 5009 I10 At goal of under 130/80. continue verapamil ER 240 Migraine 32610408 G43.90 9 better on verapamil Multiple joint pain 3567 8005 M25.50 Seems better. Non-radiog raphic axial spondyloarthritis 883547548 M45.A0 continue humira, tramadol, etodolac, tizanidine . seein Dr. Martínez [id number] Ky Dixon MD , [facility], OFFICE [address] [place] [address] 04/17/2024 13:29:16 04/17/2024 14:15:56 Adult health examination 312595358 Z00.00 see Risk Assessment and Lifestyle Change Counseling section above Depression screening 171 758668 Z13.31 depression screening tool administer ed Screening for alcohol abuse 025921395 Z13.39 Alcohol use screening tool administer ed Benign hypertension 1072 5009 I10 At goal of under 130/80. continue verapamil ER 240 Multiple joint pain 3567 8005 M25.50 Seems better. on Humira, con't ramadol Undifferen tiated spondylitis 635391478 M46.90 on Humira Psoriasis 3178059 L40.9 on humira from rheumatolo gy Restless legs 39360643 G 25.81 on yenni. [id number] Nitza So , [facility], OFFICE [address] [place] [address] 06/30/2024 09:01:18 06/30/2024 09:55:16 Menstrual spotting 6242339 N92.5 Pain in pelvis 06891735 R10.2 Will get ultrasound of the pelvis for uterus and ovarian problem. Will also do swab to check infection [id number] MD DONIS Mccartney, [facility], OFF[address] [place] [address] 10/30/2024 08:26:40 10/30/2024 09:01:40 Nicotine dependence 05230755 F17.200 We discussed your smoking/va ping today [...] cessation. We discussed utilizing our smoking cessation process coach and online resources. Your personal goal: will get there Restless legs 07596427 G 25.81 on yenni. Benign hypertension 1072 5009 I10 At goal of under 130/80. continue verapamil ER 240 Non-radiog raphic axial spondyloarthritis 615001925 M45.A0 continue humira, tramadol, etodolac, tizanidine . Biceps tendinitis 081822 [address] Vides. Health Concerns [...] [facility] [employer] (MEDICAID) Meeta Lay [id number] Meeta Lay 12/17/2022 1 [facility] [facility] HP - DOS ON OR AFTER 2022 - [facility] (MEDICAID REPLACEMENT - HMO) Meeta Lay [id number] Meeta Lay 03/26/2023 1 [facility] [facility] HP - DOS ON OR AFTER 2022 - [facility] (MEDICAID REPLACEMENT - HMO) Meeta Lay [id number] Meeta Lay 04/17/2024 1 [facility] HP - DOS ON OR AFTER 2022 - [facility] (MEDICAID REPLACEMENT - HMO) Meeta Lay [id number] Meeta Lay 06/30/2024 1 [facility] [facility] HP - DOS ON OR AFTER 2022 - [facility] (MEDICAID REPLACEMENT - HMO) Meeta Lay [id number] Meeta Lay 10/30/2024 1 [facility] HP - DOS ON OR AFTER 2022 - [facility] (MEDICAID REPLACEMENT - HMO) Meeta Lay [id number] Meeta Lay Notes Date Note Type Note Provider Name and Address Organization Details Recorded Time 3 text/html 37 yo presents for wasp sting Stung Saturday by wasp -on R hand/palm Benadryl 2 pills a day and hydrocortz - occ icingNo hx of anaphylaxisNo breathing issues, no throat swelling Smoking- smoking less; 3 cigs / d, declines nrt Rheum-continues on humira Mercedes Ca NP [address] [place], [address], [facility] 12/18/2022 16:25:27 3 text/html Physical Exam/FemaleReported bypatient.Notes:Here for physical. 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 Has inflammatory arthritis back , hip , [...] or less stable. Ky Dixon MD [address] [place], [address], [facility] 03/26/2023 16:11:51 4 text/html Physical Exam/FemaleReported bypatient.Notes:Here [...] room and availability of urgent care at [facility]-Smoking CessationReported bypatient.Notes:down to 3 cig/d.a/vmg-smoking [id number] bypatient.Notes:smokes 3/day. 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 01/[address] Israel, is diagnosis probable spondyloarthropathy .PRIYA neg. On Humira, on tramadol, gabapentin , tizanidine. RLS gabapentin. Does not eat late at night anymore. Does walking. Rash low back healing. - hydrocort, Abx. Wt more or less stable. Ky Dixon MD [address] [place] [address], [address], [facility] 04/17/2024 14:15:49 4 text/html Pt comes in [...] in May (psoriatic arthritis). Nitza So [address] [place], [address], [facility] 06/30/2024 09:54:08 5 text/html a/vmg-Smoking CessationReported bypatient.Notes:down to 3 cig/d.a/vmg-smoking [id number] bypatient.Notes:smokes 3/day. 39 yo here for Medical management. c/o 2 mo R shoulder pain. HTN- verapamil GERD- omeprazole BID Exercise- fast pace walking. Works [employer]. 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 01/2015 Dx- on the spectrum. .. Sees , Rheum. diagnosis probable spondyloarthropathy .PRIYA neg. On Humira, on tramadol, gabapentin , tizanidine. RLS gabapentin. Does not eat late at night anymore. Does walking. Wt more or less stable. Ky Dixon MD [address] [place], [address], [facility] 10/30/2024 09:00:20 OBGyn Episode No OBEpisode recorded.
--- OUTSIDE RECORDS SUMMARY | 2024-11-03 17:54 | XMS_ITS | Continuity of Care Document ---
Author Organization [facility], FP, EHC, OFFICE Address [address] [place] [address] Care Team Providers Care Airport Guide Name Role Phone KY DIXON Primary Care Provider [phone] [facility] Process Area Supervisor [facility] Internal Controls Consultant [phone] ADELIEN LAE Process Area Supervisor TONO MARTÍNEZ Splicing Machine Operator [facility] Orthopedist KINGSTONKRYSTAL Associate Software Development Engineer Assessment No assessment recorded. Plan of Treatment Reminders Order Date Submit Date Provider Last Modified By Organization Details Last Modified Time Details Appointments Sports Med New Patien t (20) 2024 03:10P M Daniel Vides MD Not available Not available Not available Frantz ss Visit 30 2024 09:00A M Ky Dixon MD Not available Not available Not available Lab None record ed. Referral sports medici ne referr al - 2 months should er pain. suspec t bicep tendon itis given ecrcis es 2024 0307/ 025 Leonel Vides MD, [address] [place] [address], [address], 11/03/2024 09:36:37 Procedures None record ed. Surgeries None record ed. Imaging None record ed. Medication Orders None record ed. Patient TargetsNo targets recorded. Patient InstructionsNo instructions recorded. Reason for Referral 2 months shoulder pain. susp ect bicep tendonitis given ecrcises Referring Physician: Ky Dixon, Family Medicine, Encounter Date: 10/30/2024 Problems Name Problem SNOMED Code Status Onset Date Resolution Date Notes Provider Name and Address Organization Details Recorded Time Benign hypertens ion 64502980 Active Mercedes Ca NP [address] [place] [address], [phone] , [facility] 11:13:54 Multiple joint pain 45235258 Active takes tramadol. Sees Dr. Suarez. 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 Mercedes Ca NP [address] [place] [address], , [facility] 11:13:54 Low back pain 871523060 Active Mercedes Ca NP [address] [place] [address], , [facility] 11:13:54 Problem Notes None recorded. Procedures Surgical History Date Name Laterality Status Provider Name and Address Organization Details Recorded Time 10/31/19 25 Smoking cessation counseling completed Siria Decker [facility] 10/27/2024 10:31:47 03/26/20 23 Smoking cessation counseling completed Siria Decker [facility] 03/26/2023 15:38:37 12/18/19 23 Smoking cessation counseling completed Crystal Spears [facility] 12/17/2022 11:03:44 10/01/19 23 Smoking cessation counseling completed Siria Decker [facility] 10/01/2022 10:43:16 04/06/20 22 Smoking cessation counseling completed Siria Decker [facility] 04/06/2022 08:39:49 03/16/20 22 Smoking cessation counseling completed Siria Decker [facility] 03/16/2022 13:38:29 05/23/20 21 Smoking cessation counseling completed Ansley Hinton NP [address] [place] [address], [address], [facility] 05/23/2021 22:56:24 02/21/20 21 Smoking cessation counseling completed Siria Decker [facility] 02/20/2021 13:26:32 08/06/20 20 Smoking cessation counseling completed Ansley Hinton NP [address] [place] [address], [address], [facility] 08/06/2020 10:14:50 01/25/20 20 Smoking cessation counseling completed Siria Decker [facility] 01/25/2020 09:58:05 07/31/20 19 Smoking cessation counseling completed Siria Decker [facility] 07/31/2019 11:18:39 07/28/20 19 Smoking cessation counseling completed Nitesh Suarez MD [address] [place] [address], [address], [facility] 07/28/2019 15:28:03 05/29/20 19 Smoking cessation counseling completed Nitesh Suarez MD [address] [place] [address], [address], [facility] 05/31/2019 08:46:53 03/04/20 19 Smoking cessation counseling completed Leonor Noriega [facility] 03/04/2019 11:45:18 03/04/20 19 Carbon Monoxide Testing completed Ronnibooahsan Noriega [facility] 03/04/2019 11:45:18 03/04/20 19 POC hCG Testing completed Laura Kulkarni [facility] 03/04/2019 12:12:41 01/07/20 19 Smoking cessation counseling completed Nitesh Suarez MD [address] [place] [address], [address], [facility] 01/06/2019 18:56:41 12/30/19 19 Smoking cessation counseling completed Siria Decker [facility] 12/29/2018 09:53:05 12/17/19 19 [facility] 13:55:00 07/04/20 18 Smoking cessation counseling completed Siria Decker [facility] 07/04/2018 10:42:38 04/25/20 18 [facility] 04/25[facility]2018 09:55:00 12/24/19 18 Smoking cessation counseling completed Siria Decker [facility] 12/23/2017 09:34:21 06/13/20 17 Smoking cessation counseling completed Priscilla Sawant MASONRY INSTRUCTOR [facility] 06/13/2017 10:51:19 03/11/20 17 Smoking cessation counseling completed Priscilla Sawant LPN [facility] 03/11/2017 14:35:31 03/04/20 17 Smoking cessation counseling completed Jan Perez LPN [facility] 03/04/2017 16:24:31 03/04/20 17 Carbon Monoxide Testing completed Jan Perez LPN [facility] 03/04/2017 16:24:31 12/15/19 17 Smoking cessation counseling completed Noy Saavedra [facility] 12/14/2016 10:23:15 12/15/19 17 Carbon Monoxide Testing completed Noy Saavedra [facility] 12/14/2016 10:26:34 09/28/19 17 Smoking cessation counseling completed Ariel Stephens [facility] 09/28/2016 10:51:25 09/28/19 17 Carbon Monoxide Testing completed Ariel Stephens [facility] 09/28/2016 11:06:25 09/28/19 17 POC Strep Testing completed Ariel Stephens [facility] 09/28/2016 11:06:29 10/24/19 16 Smoking cessation counseling completed Noy Saavedra [facility] 10/24/2015 15:29:53 01/25/20 15 completed Noy Sandoval NP [address] [place], [address], [facility] 02/08/2015 21:42:20 12/23/19 15 Smoking cessation counseling completed Maisha Ron [facility] 12/22/2014 14:37:09 11/20/19 15 Smoking cessation counseling completed Maisha Ron [facility] 11/19/2014 09:53:14 08/27/19 15 Smoking cessation counseling completed Maisha Ron [facility] 08/27/2014 09:13:45 06/21/20 14 Smoking cessation counseling completed Maisha Ron [facility] 06/21/2014 11:52:26 02/21/20 12 Treatment and Advice completed Gloria Gonzalez Mph, LPT [address] [place], [address], [facility] 02/21/2012 15:49:02 02/12/20 12 Treatment and Advice completed Gloria Gonzalez Mph, LPT [address] [place], [address], [facility] 02/12/2012 14:06:28 02/05/20 12 Smoking cessation counseling completed Gino Mcclure [facility] 02/05/2012 10:49:24 Imaging Results None recorded. Procedure Notes None recorded. Medical Equipment None Reported. Allergies Allergen ID Allergen Name Allergen Category Reaction Reaction Severity Criticality Documentation Date Start Date Code Code System Note Provider Name and Address Organization Details Recorded Time 19830429 strawberr y allergeni c extract food Not available Not available Not available 03/11/2017 70751 4 RxNorm Pt no longe r aller gice to straw berri es NMT, not aller gic humjeronimo power ed it Daphney Pedersen LPN [facility] 2 10:07:35 54488 Erythroci n medicatio n anaphylax is Not available Not available 10/21/2009 32209 3 RxNorm Not Available [facility] 1 06:05:20 364266 pumpkin allergeni c extract food,medi cation Not available Not available Not available 06/30/2024 84672 9 RxNorm Dary Gutierres [facility] 4 09:17:35 80669 erythromy guanako medicatio n anaphylax is Not available Not available 07/14/2010 4053 RxNorm Not Available [facility] 1 06:05:41 Medications Name Sig Start Date [...] Not Available Not Available Not Available vitamin M06-wqunz acid 12/14 completed Not Available Not Available Not Available Humira Pen 40 mg/0.8 mL subcutane ous kit 08/09 completed Not Available Not Available Not Available Flexall 10 milgrams tid active Not Available Not Available No t Available Humira(CF ) 40 mg/0.4 mL subcutane ous syringe kit INJECT 0.4ML SUBCUTAN EOUSLY EVERY 10 DAYS active pt only uses pen 3/7/25 mp Not Available Not Available Not Available [...] Updated DateTime 5 157.48 cm 35.3 kg/m2 48881.7 3 g 99 % 99 % 65 /min 128 mm[Hg] 80 mm[Hg] Rossi Zhao [facility] 5 08:36:35 Social History Question Answer Notes LastModified by Organizat ion Details LastModified Time Tobacco Smoking Status Current Every Day Smoker 1/4 cigarettes daily 05/23/21 NMT 08/06/20 srp <1ppd 09/28/16 Ila Wyatt [facility] 05/23/2021 14:01:06 Do You Have An Advance [...] available 01/03/2015 Are You Currently Employed? Yes [email or web address] Information not available 04/17/2024 What Type Of [...] To Your Family Or Social Situation? No [email or web address] Information not available 04/17/2024 When Did You [...] Children Do You Have? 1 Venkat 02/02/15. [email or web address] Information not available 02/20/2021 What Is Your Current Pack Years? 10packyears Started Smoking At 19. 5years Smoked 1/2ppd . Prior To That Smoke 1ppd., 3 A Day 09/26/21 Ramón [email or web address] Information not available 09/26/2021 What Is Your Relationship Status? From Hernandez [email or web address] Information not available 10/01/2022 Do You Use Your Seat Belt Or Car Seat Routinely? Yes Information not available 04/17/2024 Seat Belts Used Routinely Yes Information not available 12/22/2014 Are You Sexually Active? No Information not available 10/01/2022 Smoke Alarm In Home Yes Information not available 12/22/2014 Do You Have Smoke And Carbon Monoxide Detectors In Your Home? Yes Information not available 04/17/2024 Do You Or Have You Ever Used Smokeless Tobacco? Never Used Smokeless Tobacco Information not available 08/06/2020 How Much Tobacco Do You Smoke? 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 She Cares For Him. [email or web address] Information not available 02/20/2021 Do You Use Any Illicit Or Recreational Drugs? No Information not available 04/17/2024 Do You Use Sunscreen Routinely? Yes Information not available 12/22/2014 Do You Or Have You Ever Used Any Other Forms Of Tobacco Or Nicotine? No [email or web address] Information not available 05/23/2021 Sex: Unknown Functional [...] Immunizations Vaccine Type Date Status Note Provider Luis arenas and Address Organization Details Recorded Time Td(adult) unspecified formulation 0 completed Not Available [facility] 09/26/2019 02:10:36 Influenza, split virus, quadrivalent, PF 9 completed Not Available [facility] 09/12/2019 02:24:36 Pneumococcal conjugate PCV 13 0 completed Ky Dixon MD [address] [place] [address], [address] 11/02/2019 12:57:53 Tdap 3 completed Crystal Spears [employer] FOR[employer] COMMUNICATIONS SERGEANT null, [facility] 12/17/2022 13:35:57 COVID-19, mRNA, LNP-S, PF, 30 mcg/0.3 mL dose 1 completed Ila Wyatt CMA null, [facility] 05/23/2021 14:01:58 COVID-19, mRNA, LNP-S, PF, 30 mcg/0.3 mL dose 1 completed Ila Wyatt CMA null, [facility] 05/23/2021 14:02:16 COVID-19, mRNA, LNP-S, PF, 30 mcg/0.3 mL dose 2 completed Siria Decker CMA null, [facility] 09/04/2021 08:35:11 Past Encounters Encounter ID Performer Location Encounter Start Date Encounter Closed Date Diagnosis/Indication Diagnosis SNOMED-CT Code Diagnosis ICD10 Code Diagnosis Note [id number] Ky Dixon MD , [facility], OFFICE [address] [place] [address] 10/30/2024 08:26:40 10/30/2024 09:01:40 Nicotine dependence 17795093 F17.200 We discussed your smoking/va ping today [...] cessation. We discussed utilizing our smoking cessation public speaking coach and online resources. Your personal goal: will get there Restless legs 05829417 G 25.81 on yenni. Benign hypertension 1072 5009 I10 At goal of under 130/80. continue verapamil ER 240 Non-radiog raphic axial spondyloarthritis 145700346 M45.A0 continue humira, tramadol, etodolac, tizanidine . Biceps tendinitis 20271230 [address] Vides. Health Concerns Section Related Observation LastModified by Organization Detai ls LastModified Time None Recorded Concern Status LastModified by Organization Details LastModified Time None Recorded Payers Encounter Date Sequence Insurance Name Policy Number Policy Munson Covered Member ID Munson Member ID Guarantor Name 10/30/2024 1 [facility] HP - DOS ON OR AFTER 2022 - [facility] (MEDICAID REPLACEMENT - HMO) Meeta Lay [id number] Meeta Lay Notes Date Note Type Note Provider Name and Address Organization Details Recorded Time 5 text/html a/vmg-Smoking CessationReported bypatient.Notes:down to 3 cig/d.a/vmg-smoking [id number] bypatient.Notes:smokes 3/day. 39 yo here for Medical management. c/o 2 mo R shoulder pain. HTN- verapamil GERD- omeprazole BID Exercise- fast pace walking. 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 01/2015 Dx- on the spectrum. .. Sees , Rheum. diagnosis probable spondyloarthropathy .PRIYA neg. On Humira, on tramadol, gabapentin , tizanidine. RLS gabapentin. Does not eat late at night anymore. Does walking. Wt more or less stable. Ky Dixon MD [address] [place] [address], [address], [facility] 10/30/2024 09:00:20 OBGyn Episode No OBEpisode recorded.
== END 2024-11-03 15:10 | disposition home or self-care (01) ==
LOC: HO.RHE 14:36
PROVIDERS: PCP Family Medicine; Visit Provider Student in an Organized Health Care Education/Training Program
DX: M45.A0 Non-radiographic axial spondyloarthritis of unspecified sites in spine (principal); Z51.81 Encounter for therapeutic drug level monitoring; Z79.620 Long term (current) use of immunosuppressive biologic
CPT/HCPCS: 99214; G2211

== ENCOUNTER 2025-03-17 12:37 | Outpatient (AMB) | payer OTHER, SELFPAY ==
--- OUTSIDE RECORDS SUMMARY | 2025-03-17 13:01 | XMS_ITS | Encounter Summary ---
Author Organization [facility] Address [address] [place] [address] Phone Care Team Providers Care Health And Wellness Sales Consultant Name Role Phone Antoine Cerda MD Primary Care Provider [phone] Antoine Cerda MD Unavailable [phone] Antoine Cerda MD Primary Care Provider Encounter Details Date Type Department Care Team (Latest Contact Info) Description 05/26/2021 Transcribe Orders Virtual Department [address] [place] [address] Katy Browning NP [address] [place] [address] Epigastric pain (Primary Dx); Nausea and vomiting, intractability of vomiting not specified, unspecified vomiting type Social History Tobacco Use Types Packs/Day Years Used Date Smoking Tobacco: Some Days Cigarettes Smokeless Tobacco: Never Comments:5 cigs some days Alcohol Use Standard Drinks/Week Comments No 0 (1 standard drink = 0.6 oz pur e alcohol) Comments No Sex and Gender Information Value Date Recorded Sex Assigned at Female 03/02/2019 11:51 PM EDT Legal Sex Female 9:14 PM EDT Gender Identity Female 03/02/2019 11:51 PM EDT Sexual Orientation Straight 03/02/2019 11 :51 PM EDT 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 Industry 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 [employer] 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 on fi le Not on file Not on file documented as of this encounter Plan of Treatment Upcoming Encounters Date Type Department Care Team (Late st Contact Info) Description 05/21/2025 9:00 AM EDT Office Visit [facility] [address], [address] [place] [address] Gregorio Barrera, [address] [place] [address] [email or web address] documented as of this encounter Results * US ABDOMEN LIMITED RIGHT UPPER QUADRANT (06/09/2021 8:04 AM EDT) Anatomical Region Laterality Modality Abdomen Ultrasound 06/09/2021 8:15 AM EDT Impressions 06/09/2021 8:16 AM EDT Right upper quadrant ultrasound appears within normal limits. Narrative 06/09/2021 8:16 AM EDT COMPARISON: None TECHNIQUE: Limited ultrasonic examination of the abdomen was performed and multiple static images obtained. FINDINGS: Pancreas: No abnormality detected in the visualized portions. Upper Aorta and IVC: No finding of concern detected in the visualized portions. Gallbladder and Biliary tree: No abnormality detected. Common bile duct measured at 3 mm. Liver: No abnormality detected. Right Kidney: Limited imaging demonstrates no hydronephrosis. Other: No ascites. Main portal vein is patent and hepatopetal. Procedure Note Gregorio Madrid MD - 06/09/2021 COMPARISON: None TECHNIQUE: Limited ultrasonic examination of the abdomen was performed andmultiple static images obtained. FINDINGS: Pancreas: No abnormality detected in the visualized portions. Upper Aorta and IVC: No finding of concern detected in the visualizedportions. Gallbladder and Biliary tree: No abnormality detected. Common bile ductmeasured at 3 mm. Liver: No abnormality detected. Right Kidney: Limited imaging demonstrates no hydronephrosis. Other: No ascites. Main portal vein is patent and hepatopetal. IMPRESSION: Right upper quadrant ultrasound appears within normal limits. us Katy Browning FRONT DESK COORDINATOR IMG US ABDOMEN Final Res ult documented in this encounter Visit Diagnoses Diagnosis Epigastric pain- Primary Abdominal pain, epigastric Nausea and vomiting, intractability of vomiting not specified, unspecified vomiting type Epigastric pain Abdominal pain, epigastric Nausea and vomiting, intractability of vomiting not specified, unspecified vomiting type documented in this encounter Care Teams Health And Wellness Sales Consultant Relationship Specialty Start Date End Date Antoine Cerda MD [email or web address] PCP - General Family Medicine 01/24/21 07/24/24 Antoine Cerda MD [address] [place] [address] PCP - General Family Medicine 07/25/24 Antoine Cerda MD [address] [place] [address] [email or web address] Insurance Assigned Provider 03/04/21 05/04/23 documented as of this encounter Additional Source Comments The information contained in this document represents components of the legal health record. It is not the complete legal health record.[facility]
[2025-03-17 13:07] VITALS: BP 122/68; PULSE 65; BMI 35.9
--- NOTE | 2025-03-17 13:07 | MHC.OFFVIS ---
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/ LUCRECIA recent ed visits Allergies erythromycin base Adverse Reaction (Severe, Verified 11/03/24 14:47) Anaphylaxis Medication List - Last Reconciled 03/17/25 by Cm Tillman MD bupropion HCl SR 150 mg PO BID dexamethasone swish & spit q6-8 etodolac 400 mg PO BID PRN gabapentin 900 mg (3 x 300 mg) PO BEDTIME Humira(CF) Pen (adalimumab) 40 mg (0.4 mL) subcut Q10D NS methocarbamol 1,000 mg (2 x 500 mg) PO BEDTIME norethindrone (contraceptive) 0.35 mg PO DAILY omeprazole 20 mg PO BID tramadol 50 - 100 mg PO BID triamcinolone acetonide 0.5% appl topical verapamil ER 240 mg PO DAILY HPI Comments Details: The patient is a 39-year-old female presenting with chest pain and concerns about premature ventricular contractions. The chest pain began when the patient was descending stairs on Mother's Day, described as a sudden cold sensation in the center of the chest with significant pressure, making it difficult to breathe. The episode lasted about five minutes before EMS was called, and the patient was taken to the emergency room following which a stress test was conducted, revealing minor premature ventricular contractions. The patient reports that the chest pain episodes occur periodically, sometimes triggered by physical activity such as walking or climbing stairs, and are accompanied by dizziness and nausea. The patient has a history of ankylosing spondylitis, which is an autoimmune condition that could potentially contribute to her symptoms. She has not had an echocardiogram but has undergone a stress test, which was normal except for the noted PVCs. The patient is currently taking medications including Verapamil for blood pressure management. She avoids working on hot days to prevent exacerbation of her symptoms. [facility] Medical History Non-radiographic axial spondyloarthritis Low back pain Hypertension Multiple joint pain Psoriasis Migraine Surgical History Hx of section Family History Sister Asthma Mother Hyperlipidemia Hypertension Mental disorder Diabetes Seizure Father Hypertension FH: malignant neoplasm of prostate Maternal Grandmother Carcinoma of breast Social History Household Members: Family and Children Alcohol intake: current Alcohol intake frequency: holidays/special occasions only Patient Tobacco Use Status: Current everyday Tobacco user Tobacco use type: Cigarette Cigarette Packs Per Day: 4 Current occupational status: employed 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 Review of Systems Const Denies weakness ENT Denies dizziness Card Denies chest pain, Denies chest pain with activity, Denies syncope, Denies rapid heart rate, Denies pedal edema, Denies edema, Denies leg edema, Denies lightheadedness, Denies palpitations, Denies dyspnea, Denies dyspnea on exertion and Denies orthopnea Resp Denies cough, Denies dyspnea and Denies dyspnea on exertion GI Denies hematochezia and Denies change in stool character Musc Denies abnormal gait, Denies muscle cramps, Denies muscle weakness, Denies numbness, Denies radiating pain into limb and Denies tingling Neuro Denies abnormal gait, Denies dizziness, Denies syncope, Denies numbness, Denies tingling and Denies weakness Endo Denies palpitations Physical Exam Vital Signs: Last Vital Signs Pulse 65 03/17/25 13:07 BP 122/68 03/17/25 13:07 BMI result Body Mass Index 35.9 Const General: comfortable and no acute distress Orientation/consciousness: patient oriented x3 HEENT Other: Unremarkable Head: Yes normal to inspection Neck Neck: Yes normal visual inspection Chest Chest palpation & inspection: normal inspection of the chest Resp Auscultation: clear to auscultation bilaterally Cardio Palpation: normal PMI Heart sounds: S1 normal heart sound present, S2 normal heart sound present, no gallops, no murmurs and no rubs GI Palpation (GI): Soft to palpation Back/Spine/Pelvis Other: unremarkable Skin General skin exam: no rashes or lesions noted Neuro General: patient oriented x3 Extrem General: Yes normal to inspection Psych Mental Status: mental status grossly normal Assessment & Plan Assessment & Plan (1) Precordial chest pain: Code(s): R07.2 - Precordial pain Category: Medical (2) Heart palpitations: Code(s): R00.2 - Palpitations Category: Medical Plan Exercise stress test-reached 12.3 METS on Mark protocol and reached target heart rate. No chest pain or EKG evidence of ischemia. Rare PVCs. About stress test is reassuring but she is still concerned about symptoms as they are recurring. Hence we will plan on echocardiogram and coronary CTA. Patient is agreeable with this. She is also concerned about the palpitations and hence a 2 week Holter monitor is being ordered. Follow-up after the above. Discussion Notes We reviewed the plan to conduct further diagnostic tests, including an echocardiogram and CT scan, to rule out any significant cardiac pathology. The patient was informed about the use of a heart monitor for two weeks to capture any irregular heart rhythms. We discussed the importance of avoiding strenuous activities and continuing her current medication regimen. Patient was informed and verbally consented to the use of an ambient scribe for clinic note documentation during this visit. Orders: Orders CA echo transthoracic complete Today R07.2 - Precordial pain CT Cardiac Coronary Angio Today I25.10 - Atherosclerotic heart disease of [place] coronary artery without angina pectoris, R07.2 - Precordial pain ECG 14 day holter monitor Today R00.2 - Palpitations Basic Metabolic Panel Today R07.2 - Precordial pain Patient Instructions: - Continue taking your prescribed medications as directed. - Avoid strenuous activities that may trigger symptoms. - Attend follow-up appointments to review test results and adjust your treatment plan. - Use the heart monitor as instructed for two weeks. Coding Level of Care Code New Pt Level 4 (92487) Complex EM visit Add On G2211 Diagnoses Precordial chest pain R07.2 Heart palpitations R00.2
== END 2025-03-17 13:42 | disposition home or self-care (01) ==
LOC: HO.HCS 12:37
PROVIDERS: PCP Family Medicine; Visit Provider Internal Medicine
DX: R07.2 Precordial pain (principal); R00.2 Palpitations
CPT/HCPCS: 93010; 99204; G2211

== ENCOUNTER → 2025-03-17 12:37 | Outpatient (BNVA) | payer OTHER, SELFPAY | PROVIDERS: PCP Family Medicine; Visit Provider Internal Medicine | DX: R07.2 Precordial pain (principal); R00.2 Palpitations | CPT/HCPCS: 93005 ==

== ENCOUNTER → 2025-04-29 07:58 | Outpatient (REF) | payer OTHER, SELFPAY ==
--- NOTE | 2025-04-29 08:01 | HM_ITS ---
* Total monitoring time 2 weeks. * Underlying rhythm is sinus with an average rate of 75/Min. * Rare ventricular ectopy. * No significant pauses or high-grade AV blocks. * Patient marker used once with normal sinus rhythm. * Dizziness, lightheadedness, chest tightness, nausea associated with sinus rhythm. MTDD
--- NOTE | 2025-04-29 08:01 | CA_ITS ---
Transthoracic Echocardiogram Patient (Last, First, Middle): Meeta Lay, Gender: F Date of : 1985 Age: 39 Procedure Date: 04/29/2025 Procedure Type: Transthoracic Echocardiogram Location: OP Height: 157.48 cm Weight: 88.91 kg BSA: 1.90 m2 Heart Rate: bpm BP: 118 / 76 mmHg Professor Of Voice: TO Referring MD: Cm Tillman MD Real Estate Office Manager: Camacho Camacho MD Symptoms: R07.2 - Precordial pain Study Quality: Adequate ECG Rhythm: Sinus Conclusions: - Essentially normal study Findings Left Ventricle Normal left ventricular size, thickness, and systolic function. The visually estimated ejection fraction is between 55-60%. Spectral Doppler is indicative of a normal filling pattern. Peak GLS is -18.9% within normal limits. Right Ventricle Normal right ventricular cavity size and systolic function. Atria Both atria are normal in size. There is no evidence of interatrial shunt. Aortic Valve Normal aortic valve structure and function. There is no aortic valve stenosis. There is no aortic valve regurgitation. Mitral Valve Normal mitral valve structure and function. There is trace mitral valve regurgitation. There is no mitral valve stenosis. Pulmonic Valve The pulmonic valve is likely normal. Tricuspid Valve Normal tricuspid valve structure. Tricuspid regurgitation envelope is inadequate for calculation of right ventricular systolic pressure. Normal right atrial pressure. Great Vessels All visible segments of the aorta are normal in size. The pulmonary artery was not well visualized. Venous The inferior vena cava is normal in size and collapses greater than 50% with inspiration. Pericardium/Pleural There is no evidence of pericardial effusion. Prior Study Comparison No prior study available for comparison. Measurements 2D Linear Measurements IVSd: 0.84 0.6-0.9/0.6-1.0 cm LVIDd: 4.88 3.9-5.3/4.2-5.9 cm LVIDd Index: 2.57 2.4-3.2/2.2-3.1 cm/m2 LVIDs: 3.16 2.0-3.6 cm LVPWd: 0.78 0.7-1.1 cm LA Diam: 2.90 2.7-3.8/3.0-4.0 cm LAIDs Index: 1.53 1.5-2.3 cm/m2 LV Mass: 165.27 67-162/88-224 g LV Mass Index: 86.99 43-95/49-115 g/m2 LVOT Diam: 2.00 3.0+(-)1.3 cm 2D Systolic Function EF 4C: 57.50 >55% EF 2C: 58.60 >55% EF BiP: 57.80 >55% Mitral Valve MV Pk E: 0.63 MV PK A: 0.36 MV Decel Time: 204.00 E/A: 1.70 E'Lateral: 14.30 E'Medial: 8.38 E/E' Med: 7.50 E/E' Lat: 4.40 PHT: 60.00 MVA PHT: 3.67 Decel [place]: 3.08 Aortic Valve AoV Pk Finn: 1.06 AoV Mn Finn: 0.78 AoV VTI: 0.25 AoV Pk Grad: 4.00 Aov Mn Grad: 3.00 ZENIA Cont.VTI: 2.61 LVOT LVOT Pk Finn: 0.88 LVOT Mn Finn: 0.64 LVOT VTI: 0.21 LVOT Pk Grad: 3.00 LVOT Mn Grad: 2.00 LVOT Diam: 2.00 LVOT Area: 3.14 Diastolic Function MV Pk E: 0.63 MV Pk A: 0.36 E/A: 1.70 E'Medial: 8.38 E/E' Med: 7.50 E' Laterial: 14.30 E/E' Lat: 4.40 Right Ventricle TAPSE (mm): 22.80 TVS' Ifnn: 11.20 Tricuspid Valve RA Press: 3.00 Great Vessels Aorta Sinus of Valsalva: 3.00 2.0-3.5 cm Ao Asc: 2.70 2.1-3.4 cm Pulmonary Veins Pulm Vein S/D 1.10 Updated in Other Vendor System with Status of Final Camacho Camacho MD electronically signed on 04/29/2025 1:50:29 PM with status of Final
--- OUTSIDE RECORDS SUMMARY | 2025-04-29 08:06 | XMS_ITS | Encounter Summary ---
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 on file documented as of this encounter Plan of Treatment Upcoming Encounters Date Type Department Care Team (Late st Contact Info) Description 02/19/2025 Procedure Pass [address] [address] 05/04/2025 1:20 PM EDT Appointment [facility] [place] [address] Cecily Delacruz, KE[address], [address] [address] 05/04/2025 1:30 PM EDT Procedure visit [address] [place] [address] Brian Lyn MD [address] [place] [address], [address] [address] 12/13/2025 2:45 PM EDT Appointment [address] [address] Cecily Delacruz, KE[address]IE[address], [address] [address] documented as of this encounter Results * [...] upper quadrant ultrasound appears within normal limits. Katy Browning CORPORATE TRAFFIC MANAGER IMG US ABDOMEN Final Res ult documented in this encounter Visit Diagnoses Diagnosis Epigastric pain- Primary Abdominal pain, epigastric Nausea and vomiting, intractability of vomiting not specified, unspecified vomiting type Epigastric pain Abdominal pain, epigastric Nausea and vomiting, intractability of vomiting not specified, unspecified vomiting type documented in this encounter Care Teams Manager Molecular Relationship Specialty Start Date End Date Antoine Cerda MD [email or web address] PCP - General Family Medicine 01/24/21 07/24/24 Antoine Cerda MD [address] [place] [address] PCP - General Family Medicine 07/25/24 Antoine Cerda MD [address] [place] [address] [email or web address] Insurance Assigned Provider 03/04/21 05/04/23 documented as of this encounter Additional Source Comments The information contained in this document represents components of the legal health record. It is not the complete legal health record.[facility]
--- OUTSIDE RECORDS SUMMARY | 2025-04-29 08:06 | XMS_ITS | Encounter Summary ---
Author Organization [facility] Address [address] [place] [address] Phone Care Team Providers Care Medical Case Manager Name Role Phone Antoine Cerda MD Primary Care Provider [phone] Encounter Details Date Type Department Care Team (Late st Contact Info) Description 02/16/2025 Procedure Pass [facility], Ct Scan - [facility] [address] [place] [address] Social History Tobacco Use Types Packs/Day Years Used Date Smoking Tobacco: Some Days Cigarettes Smokeless Tobacco: Never Comments:5 cigs some days Alcohol Use Standard Drinks/Week Comments No 0 (1 standard drink = 0.6 oz pur e alcohol) Education Answer Date Recorded Are you interested in more education? Not on shon e 12/21/2022 Are you concerned about learning? Not on file 12/21/2022 No 12/21/2022 No 12/21/2022 Food Answer Date Recorded Within the past 6 months we worried whether our food would run out before we got money to buy more. Never True 02/16/2025 Within the past 6 months the food we bought just didn't last and we didn't have enough money to get more. Never True Residential Stability Answer Date Recor ded What is your housing situation today? I have mendez sing 02/16/2025 How many times have you move d in the past 12 months? Zero (I did not move) 02/16/2025 Paying for Meds Answer Date Recorded Do you have trouble paying for medicines? No 02/16/2025 Paying Utility Bills Answer Date Record ed Do you have trouble paying your heating or elect ricity bill? No 02/16/2025 Transportation Answer Date Recorded Has the lack of transportati on kept you from medical appointments or from getting medications? No 02/16/2025 Digital Access Answer Date Recorded No 02/16/2025 Yes 02/16/2025 Do you have reliable internet access at home? Ye s 02/16/2025 Do you have a device (e.g., phone, tablet, computer) with a working camera? Yes 02/16/2025 Intimate Partner Violence Answer Date R ecorded Are you denied basic needs s uch as food, clothing, or medical care? No 02/16/2025 In the past 12 months have y ou been in a relationship with a person who hurts, threatens, or tries to control you? No 02/16/2025 Are you denied basic needs s uch as food, clothing, or medical care? No 02/16/2025 In the past 12 months have y ou been in a relationship with a person who hurts, threatens, or tries to control you? 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 Wish to be (Past 1 Month) No 02/16/2025 11:37 AM Su Hollis RN 2. Non-Specific Active Suici mauro Thoughts (Past 1 Month) No 02/16/2025 11:37 AM Whitney Hollis RN 6. Suicidal Behavior (Lifetime) No 11:37 AM EDT Su Christensen RN documented as of this encounter Plan of Treatment Upcoming Encounters Date Type Department Care Team (Late st Contact Info) Description 02/19/2025 Procedure Pass [address] [address] 05/04/2025 1:20 PM EDT Appointment [facility], [address] [place] [address] Cecily Delacruz, [address] [address] 05/04/2025 1:30 PM EDT Procedure visit [address] [place] [address] Brian Lyn MD [address] [place] [address] 12/13/2025 2:45 PM EDT Appointment [address] [address] Cecily Delacruz, [address] [address] documented as of this encounter Visit Diagnoses Not on filedocumented in this encounter Care Teams Medical Case Manager Relationship Specialty Start Date End Date Antoine Cerda MD [address] [place] [address] PCP - General Family Medicine 07/25/24 documented as of this encounter Additional Source Comments The information contained in this document represents components of the legal health record. It is not the complete legal health record.[facility]
--- OUTSIDE RECORDS SUMMARY | 2025-04-29 08:06 | XMS_ITS | Encounter Summary ---
Author Organization [facility] Address [address] [place] [address] Phone Care Team Providers Care Student Admissions Clerk Name Role Phone Antoine Cerda MD Primary Care Provider [phone] Encounter Details Date Type Department Care Team (Late st Contact Info) Description 04/08/2025 Telephone [facility] Obstetrics - Virtual Department [address] [place] [address] Cecily Delacruz, KELLIE [address] [facility], [facility] [address] [place] [address] [email or web address] Social History Tobacco Use Types Packs/Day Years Used Date Smoking Tobacco: Some Days Cigarettes Smokeless Tobacco: Never Comments:2 cigarettes each d ay Alcohol Use Standard Drinks/Week Comments No 0 [...] your housing situation today? 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 We reviewed ultrasound results and recommendation for SHG. She agrees. SHG ordered. Could you please call her to schedule? Ty documented in this encounter Plan of Treatment Upcoming Encounters Date Type Department Care Team (Late st Contact Info) Description 02/19/2025 Procedure Pass [address] [address] 05/04/2025 1:20 PM EDT Appointment [facility] & [address] [place] [address] Cecily Delacruz CNM [address] [place] [address] 05/04/2025 1:30 PM EDT Procedure visit [address] [place] [address] Brian Lyn MD [address] [place] [address] 12/13/2025 2:45 PM EDT Appointment [address] [address] Cecily Delacruz CNM [address] [place] [address] Scheduled Orders Name Type Priority Associated Diagnoses Orde r Schedule US Sonohysterogram Imaging Routine Abnormal pelvic ultrasound Expected: 04/09/2025, Expires: 07/09/2025 documented as of this encounter Visit Diagnoses Diagnosis Abnormal pelvic ultrasound- Primary documented in this encounter Care Teams Student Admissions Clerk Relationship Specialty Start Date End Date Antoine Cerda MD [address] [place] [address] [email or web address] PCP - General Family Medicine 07/25/24 documented as of this encounter Additional Source Comments The information contained in this document represents components of the legal health record. It is not the complete legal health record.[facility]
--- OUTSIDE RECORDS SUMMARY | 2025-04-29 08:07 | XMS_ITS | Clinical Summary ---
Author Organization [facility] Address [address] [place] [phone] Phone Care Team Providers Care Boiler Attendant Name Role Phone Antoine Cerda MD Primary Care Provider Allergies Active Allergy Reactions Criticality Noted Date Comments Erythromycin Anaphylaxis High 07/07/2018 Pumpkin Hives Medium 07/25/2024 Medications verapamiL (CALAN-SR) 240 MG CR tablet Take 1 tablet by mouth every morning. with food Active omeprazole (PRILOSEC) 20 MG capsule Take 1 capsule by mouth daily. Active acetaminophen (TYLENOL) 325 mg tablet Take 650 mg by mouth every 6 (six) hours as needed (for body aches and/or fevers greater than 100F. NTE 4000mg/day). Active gabapentin (NEURONTIN) 100 MG capsule Orally Active Medication-Free Text TraMADol & Dietary Manage Prod 50 MG Miscellaneous , Sig: Orally Active HUMIRA,CF, PEN 40 mg/0.4 mL pen kit INJECT 0.4ML UNDER SKIN EVERY 10 DAYS DIRECTED 2 Active etodolac (LODINE) 400 MG tablet Take 400 mg by mouth 2 (two) times a day as needed. 4 Active traMADoL (ULTRAM) 50 mg tablet TAKE 1 TO 2 TABLETS BY MOUTH TWICE DAILY 4 Active norethindrone (MICRONOR) 0.35 mg tabletIndications: Encounter for contraceptive management Take 1 tablet (0.35 mg total) by mouth daily. 84 tablet Active methocarbamoL (ROBAXIN) 500 MG tablet Take 1,000 mg by mouth nightly at bedtime. Active Active Problems Problem Noted Date Diagnosed Date Rheumatoid arthritis of [facility] sites with negative rheumatoid factor 02/19/2025 Migraines 02/19/2025 PVC (premature ventricular contraction) 02/20/20 Overview (02/19/2025): Caused by taking taking verapamil and tizanidine at the same time. Encounters Date Type Department Care Team Description 04/08/2025 Telephone [facility] Obstetrics - Virtual Department [address] [place] [phone] Cecily Delacruz CNM 03/09/2025 10:59 AM EDT - 03/09/2025 11:59 PM EDT Hospital Encounter [facility] OBGYN & Midwifery [place], OB Ultrasound [address] [place] [phone] Cecily Delacruz CNM Discharge Disposition: Home or Self Care 02/19/2025 8:50 AM EDT Office Visit [facility] & Midw[facility]ery [address] [place] [address] Cecily Delacruz CNM Encounter for annual routine gynecological examination (Primary Dx); Encounter for contraceptive management; Rheumatoid arthritis of multiple sites with negative rheumatoid factor; Migraine without aura and with status migrainosus, not intractable; PVC (premature ventricular contraction); Enlarged uterus 02/16/2025 11:32 AM EDT - 02/16/2025 5:56 PM EDT Emergency [facility] [address] [place] [address] Harrison Olivares MD Discharge Disposition: Home or Self Care 02/16/2025 Procedure Pass [facility], Ct Scan - [facility] Hospital [address] [place] [phone] from Last 3 Months Immunizations Immunization Administration Dates Next Due COVID-19 (Pre-06/17) Pfizer Vaccine, mRNA, PF ,11/21/2020 Influenza Quadrivalent Preservative Free IM 12/01/2019 Pneumococcal conjugate PCV13 11/02/2019 Td, unspecified formulation 10/21/2009 Family History Medical History Relation Comments Prostate cancer Father Lung cancer Maternal Grandfather Breast cancer Maternal Grandmother Heart attack Maternal Grandmother Heart failure Maternal Grandmother Uterine cancer Maternal Grandmother Alcohol abuse Mother Bipolar disorder Mother Other Mother smoker Schizophrenia Mother Other Paternal Grandfather Old age Other Paternal Grandmother Old age Relation Status Comments Father Alive Maternal Grandfather Maternal Grandmother Alive Mother Alive Paternal Grandfather Paternal Grandmother Son Alive Social History Tobacco Use Types Packs/Day Years Used Date Smoking Tobacco: Some Days Cigarettes Smokeless Tobacco: Never Tobacco Cessation:Ready to Q uit: Not Asked; Counseling Given: Not Answered Comments:2 cigarettes each day Alcohol Use Standard Drinks/Week Comments No 0 [...] 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 on file Last Filed Vital Signs Vital Sign Reading Time Taken Comments Blood Pressure 132/86 02/19/2025 8:44 AM EDT Pulse 66 02/16/2025 5:30 PM EDT Temperature 36.3 C (97.3 F) 02/16/2025 5:30 PM EDT Respiratory Rate 18 02/16/2025 5:30 PM EDT Oxygen Saturation 100% 02/16/2025 5:30 PM EDT Inhaled Oxygen Concentration - - Weight 87.5 kg (193 lb) 02/19/2025 8:44 AM EDT Height 157.5 cm (5' 2 ) 02/16/2025 11:36 AM EDT Body Mass Index 35.3 02/16/2025 11:36 AM EDT Plan of Treatment Upcoming Encounters Date Type Department Care Team (Late st Contact Info) Description 02/19/2025 Procedure Pass [facility], [facility] [address] [place] [address] 05/04/2025 1:20 PM EDT [facility] [address] [place] [address] Cecily Delacruz, CLARA [address] [facility], [address] [place] [address] [email or web address] 05/04/2025 1:30 PM EDT Procedure visit [facility]YN & Midwifery [address] [place] [address] Dr Coleman, SUSAN [phone] Brian Lyn MD [address] [facility], [address] [place] [address] 12/13/2025 2:45 PM EDT Appointment [facility], [address] [address] Cecily Delacruz CNM [address] [facility], [address] [place] [address] [email or web address] Health Maintenance Due Date Last Done Comments DEPRESSION SCREENING 1997 SMOKING Hx and SMOKELESS TOBACCO SCREENING 1998 HIV ONE-TIME SCREENING (18-65 YEARS) 2003 PNEUMOCOCCAL VACCINES (0-49 years) (2 of 2 - PPSV23) 12/28/2019 11/02/2019 INFLUENZA VACCINE (#1) 2025 05/23/2023, 2018 COVID-19 VACCINE ( season) 2025 09/01/2021, 12/13/2020, 11/21/2020 PAP SMEAR 01/24/2026 01/24/2021, 1002/2016, 06/01/2016, Additional history exists SCREENING FOR DIABETES 02/17/2028 02/16/2025 Adult Td,Tdap Booster 12/17/2032 12/17/2022, 010 HEPATITIS C SCREENING Completed 08/10/2022 HEPATITIS A VACCINES Aged Out No long er eligible based on patient's age to complete this topic HIB VACCINES Aged Out No longer eligi ble based on patient's age to complete this topic MENINGOCOCCAL VACCINES (ACWY) Aged Out No longer eligible based on patient's age to complete this topic MENINGOCOCCAL VACCINES (B) Aged Out N o longer eligible based on patient's age to complete this topic Medical Devices Not on file Procedures Procedure Name Priority Date/Time Associated Diagnosis Comments US PELVIS TRANSABDOMINAL PLUS TRANSVAGINAL Routine 03/09/2025 11:27 AM EDT Enlarged uterus CT CHEST PULMONARY ANGIOGRAM (ACUTE) Routine 02/16/2025 4:24 PM EDT HCG, SERUM QUALITATIVE STAT 1:32 PM EDT D-DIMER STAT 02/16/2025 1:32 PM EDT XR CHEST PA AND LATERAL 2 VIEWS Routine 02/16/2025 1:30 PM EDT TROPONIN STAT 02/16/2025 12:46 PM EDT TROPONIN STAT 02/16/2025 11:48 AM EDT BASIC METABOLIC PANEL STAT 02/16/2025 11:48 AM EDT CBC AND DIFFERENTIAL STAT 02/16/2025 11:48 AM EDT ECG 12-LEAD STAT 02/16/2025 11:21 AM EDT PAP TEST Routine 01/24/2021 12:00 AM EDT from Last 3 Months or Most Recently Relevant to Health Maintenance Results * US PELVIS TRANSABDOMINAL PLUS TRANSVAGINAL (03/09/2025 11:27 AM EDT) Anatomical Region Laterality Modality Pelvis, Uterus/Adnexa Ultrasound 03/09/2025 11:2 7 AM EDT Impressions 03/10/2025 1:53 PM EDT The uterine volume is normal. The myometrial echotexture is heterogeneous with no focal masses. The endometrium measures 13 mm. There may be focal lesion within, however the endometrium is poorly visualized. There is a 3 cm simple cyst with no vascularity seen on the left. A simple cyst of this size does not require follow-up. Clinical correlation is recommended to determine if further evaluation of the endometrium is indicated. SHG could provide better visualization of the endometrial cavity. Narrative 03/10/2025 1:53 PM EDT US PELVIS TRANSABDOMINAL AND TRANSVAGINAL Referring clinician's provided indication for this examination in [facility]: Enlarged Uterus Procedure: US PELVIS TRANSABDOMINAL AND TRANSVAGINAL 03/09/2025 11:03 AM US Indications: Enlarged Uterus. Comparison: No relevant recent comparisons. Technique: Transabdominal sonography of the pelvis was performed. In addition, transvaginal imaging was performed to better evaluate the adnexae and ovaries. Color Doppler imaging was performed to assess vascularity. No 3-D images were acquired. Reported LMP: FINDINGS: Uterus: The uterus measurements acquired; 7.96 cm x 4.25 cm x 3.52 cm with volume of 62.35 ml. The uterus is anteverted in its positioning. The myometrium is heterogeneous. Endometrium: The endometrium measures 1.25 cm and appears to contain a possible endometrial mass 1.1 x 0.7 x 0.9 cm. No fluid is identified within the endometrial canal. No focal cervical masses. Ovaries: The right ovary measures 2.39 cm x 1.92 cm x 1.56 cm with volume of 3.75 ml. Appears grossly normal Right Adnexa: wnl The left ovary measures 4.26 cm x 3.78 cm x 3.70 cm with volume of 31.20 ml. Appears grossly normal Left Adnexa: wnl Cul de Sac: There is no evidence of free pelvic fluid. Tech Comments: Procedure Note Brian Lyn MD - 03/10/2025 US PELVIS TRANSABDOMINAL AND TRANSVAGINAL Referring clinician's provided indication for this examination in [facility]:Enlarged Uterus Procedure: US PELVIS TRANSABDOMINAL AND TRANSVAGINAL 03/09/2025 11:03 AM US Indications: Enlarged Uterus. Comparison: No relevant recent comparisons. Technique: Transabdominal sonography of the pelvis was performed. Inaddition, transvaginal imaging was performed to better evaluate theadnexae and ovaries. Color Doppler imaging was performed to assessvascularity. No 3-D images were acquired. Reported LMP: FINDINGS: Uterus: The uterus measurements acquired; 7.96 cm x 4.25 cm x 3.52 cm with volumeof 62.35 ml. The uterus is anteverted in its positioning. Themyometrium is heterogeneous. Endometrium: The endometrium measures 1.25 cm and appears to contain a possibleendometrial mass 1.1 x 0.7 x 0.9 cm. No fluid is identified within theendometrial canal. No focal cervical masses. Ovaries: The right ovary measures 2.39 cm x 1.92 cm x 1.56 cm with volume of 3.75ml. Appears grossly normal Right Adnexa: wnl The left ovary measures 4.26 cm x 3.78 cm x 3.70 cm with volume of 31.20ml. Appears grossly normal Left Adnexa: wnl Cul de Sac: There is no evidence of free pelvic fluid. Tech Comments: IMPRESSION: The uterine volume is normal. The myometrial echotexture is heterogeneouswith no focal masses. The endometrium measures 13 mm. There may be focallesion within, however the endometrium is poorly visualized. There is a 3cm simple cyst with no vascularity seen on the left. A simple cyst ofthis size does not require follow- up. Clinical correlation is recommendedto determine if further evaluation of the endometrium is indicated. SHGcould provide better visualization of the endometrial cavity. Cecily Delacruz [facility] IMG US PELVIS Final Result * CT CHEST PULMONARY ANGIOGRAM (ACUTE) (02/16/2025 4:24 PM EDT) Anatomical Region Laterality Modality Chest, Thoracic Vasculature Comp uted Tomography 02/16/2025 4:51 PM EDT Impressions 02/16/2025 5:38 PM EDT No pulmonary embolism or alternative CT explanation for symptoms. ATTESTATION: I, Christel Colon as teaching physician, have reviewed the images for this case and if necessary edited the report originally created by Mumtaz Robles. Narrative 02/16/2025 5:[address] CHEST PULMONARY ANGIOGRAM (ACUTE) Referring clinician's provided indication for this examination in [facility]: * PE suspected, low/intermediate prob, positive D-dimer TECHNIQUE: Multidetector CT pulmonary angiography was performed after administration of intravenous contrast using tailored dose modulation techniques. 3D angiographic postprocessing techniques were acquired in the form of axial maximum intensity projection images (MIPS). COMPARISON: None FINDINGS: Pulmonary Angiogram: The pulmonary arteries are adequately opacified. There is no pulmonary embolus. Streak artifact from contrast bolus causes artifact in the right upper lobe segmental and proximal subsegmental arteries. Devices/Tubes/Lines: None. Lungs: No pulmonary nodules or consolidation. The airways are clear. Pleura: No pleural effusion or pneumothorax. Mediastinum: No thyroid nodules. Heart is normal in size. No pericardial effusion. Thoracic aorta is within normal limits in caliber. It is not well opacified due to the timing of contrast bolus. Lymph Nodes: No enlarged supraclavicular, axillary, mediastinal, or hilar lymph nodes. Upper Abdomen: No acute abnormality in the visualized upper abdomen. Mild diffuse thickening of the left adrenal gland. Chest Wall: No chest wall abnormality. Bones: No significant abnormality. Linear calcification along the posterior aspect of the left humeral head could represent calcific tendinosis. Procedure Note Itzel Wolfe MD - 02/16/2025 CT CHEST PULMONARY ANGIOGRAM (ACUTE) Referring clinician's provided indication for this examination in [facility]: *PE suspected, low/intermediate prob, positive D-dimer TECHNIQUE: Multidetector CT pulmonary angiography was performed afteradministration of intravenous contrast using tailored dose modulationtechniques. 3D angiographic postprocessing techniques were acquired in theform of axial maximum intensity projection images (MIPS). COMPARISON: None FINDINGS: Pulmonary Angiogram: The pulmonary arteries are adequately opacified. There is no pulmonaryembolus. Streak artifact from contrast bolus causes artifact in the rightupper lobe segmental and proximal subsegmental arteries. Devices/Tubes/Lines: None. Lungs: No pulmonary nodules or consolidation. The airways are clear. Pleura: No pleural effusion or pneumothorax. Mediastinum: No thyroid nodules. Heart is normal in size. No pericardialeffusion. Thoracic aorta is within normal limits in caliber. It is notwell opacified due to the timing of contrast bolus. Lymph Nodes: No enlarged supraclavicular, axillary, mediastinal, or hilarlymph nodes. Upper Abdomen: No acute abnormality in the visualized upper abdomen. Milddiffuse thickening of the left adrenal gland. Chest Wall: No chest wall abnormality. Bones: No significant abnormality. Linear calcification along theposterior aspect of the left humeral head could represent calcifictendinosis. IMPRESSION: No pulmonary embolism or alternative CT explanation for symptoms. ATTESTATION: IChristel as teaching physician, havereviewed the images for this case and if necessary edited the reportoriginally created by Mumtaz Robles. Harrison Olivares MD IMG CT CHEST F inal Result * HCG, serum qualitative (02/16/2025 1:32 PM EDT) HCG, QUALITATIVE Negative Negative IU/L [facility] Blood 02/16/2025 1:32 PM EDT 02/16/2025 1:40 PM EDT Harrison Olivares MD LAB BLOOD ORDERAB LES Final Result [address] [address] * (ABNORMAL) D-dimer (02/16/2025 1:32 PM EDT) D-DIMER 622(H) <500 ng/mL FEU [facility] Comment:In patients with low to moderate pre-test probability scores for VTE (PE or DVT), a D-Dimer cut-off less than 500 ng/mL (FEU) has a negative predictive value (NPV) of 97 to 100%. Blood 02/16/2025 1:32 PM EDT 02/16/2025 3:30 PM EDT us Harrison Olivares MD LAB BLOOD ORDERAB LES Final Result [address] [address] * XR CHEST PA AND LATERAL 2 VIEWS (02/16/2025 1:30 PM EDT) Anatomical Region Laterality Modality Chest Computed Radiogr aphy 02/16/2025 1:53 PM EDT Impressions 02/16/2025 1:54 PM EDT No acute abnormality. Narrative 02/16/2025 1:54 PM EDT XR CHEST PA AND LATERAL 2 VIEWS Referring clinician's provided indication for this examination in [facility]: Pain COMPARISON: XR CHEST 1 VIEW FINDINGS: Devices/Tubes/Lines: None. Lungs: No focal consolidation or pulmonary edema. Pleura: No pleural effusions or pneumothorax. Heart/Mediastinum: Normal cardiomediastinal silhouette. Bones/Soft Tissues: No significant abnormality. Procedure Note Coretta [place] MD - 02/16/2025 XR CHEST PA AND LATERAL 2 VIEWS Referring clinician's provided indication for this examination in [facility]:Pain COMPARISON: XR CHEST 1 VIEW FINDINGS: Devices/Tubes/Lines: None. Lungs: No focal consolidation or pulmonary edema. Pleura: No pleural effusions or pneumothorax. Heart/Mediastinum: Normal cardiomediastinal silhouette. Bones/Soft Tissues: No significant abnormality. IMPRESSION: No acute abnormality. us Harrison Olivares MD IMG XR CHEST F inal Result * Troponin (02/16/2025 12:46 PM EDT) Only the most recent of2 resultswithin the time period is included. Troponin-T, HS Gen5 <6 0 - 9 ng/L [facility] Blood 02/16/2025 12:4 6 PM EDT 02/16/2025 12:56 PM EDT us Aaron Agrawal MD LAB BLOOD ORDERABL ES Final Result [facility] [address] [place] [address] * (ABNORMAL) CBC and differential (02/16/2025 11:48 AM EDT) WBC 9.75 4.00 - 11.00 K/uL [facility] RBC 4.71 4.00 - 5.20 M/uL [facility] HGB 13.0 12.0 - 16.0 g/dL [facility] HCT 40.7 36.0 - 46.0 % [facility] PLT 386 150 - 450 K/uL [facility] MCV 86.4 80.0 - 100.0 fL [facility] MCH 27.6 27.0 - 31.0 pg [facility] MCHC 31.9(L) 32.0 - 36.0 g/dL [facility] RDW 13.3 11.5 - 14.5 % [facility] MPV 8.5 8.4 - 12.0 fL [facility] NRBC 0.00 0.00 /100 WBCs [facility] ABSOLUTE NRBC 0.00 0.00 K/uL [facility] DIFF METHOD Auto [facility] NEUTS 43.4(L) 48.0 - 76.0 % [facility] LYMPHS 42.3(H) 18.0 - 41.0 % [facility] MONOS 11.2(H) 4.0 - 11.0 % [facility] EOS 2.1 0.0 - 5.0 % [facility] BASOS 0.7 0.0 - 1.5 % [facility] Granulocytes, immature (%) 0.3 0.0 - 0.9 % [facility] ABSOLUTE NEUTS 4.24 1.92 - 7.60 K/uL [facility] ABSOLUTE LYMPHS 4.12(H) 0.72 - 4.10 K/uL [facility] ABSOLUTE MONOS 1.09 0.16 - 1.10 K/uL [facility] ABSOLUTE EOS 0.20 0.00 - 0.50 K/uL [facility] ABSOLUTE BASOS 0.07 0.00 - 0.15 K/uL [facility] Granulocytes, immature 0.03 0.00 - 0.09 K/uL [facility] Blood 02/16/2025 11:4 8 AM EDT 02/16/2025 11:51 AM EDT us Harrison Olivares MD LAB BLOOD ORDERAB LES Final Result [address] [address] * Basic metabolic panel (02/16/2025 11:48 AM EDT) Pathologist [facility] SODIUM 136 133 - 146 mmol/L [facility] CHLORIDE 104 96 - 108 mmol/L [facility] POTASSIUM 4.4 3.3 - 5.1 mmol/L [facility] CO2 23 21 - 35 mmol/L [facility] BUN 16 6 - 19 mg/dL [facility] CREATININE 0.90 0.5 - 1.5 mg/dL [facility] GLUCOSE 88 70 - 99 mg/dL [facility] CALCIUM 9.1 8.4 - 10.3 mg/dL [facility] EGFR 83 >59 mL/min/1.7 3m2 [facility] Comment:Estimated glomerular filtration rate calculated using the CKD-EPI refit equation. ANION GAP 13 10 - 20 mmol/L [facility] Blood 02/16/2025 11:4 8 AM EDT 02/16/2025 11:51 AM EDT us Harrison Olivares MD LAB BLOOD ORDERAB LES Final Result Performing Organization Address [facility]/ZIP Co de Phone Number [address] [address] * ECG 12-LEAD (02/16/2025 11:21 AM EDT) Ventricular Rate EKG/MIN 66 BPM [facility] Atrial Rate 66 BPM [facility] GA Interval 156 ms [facility] QRS Duration 72 ms [facility] QT Interval 436 ms [facility] QTC Interval 457 ms [facility] P [place] 48 degrees [facility] R Wave [place] -8 degrees [facility] T Wave [place] 30 degrees [facility] 02/16/2025 11:2 1 AM EDT 02/17/2025 8:24 AM EDT Narrative [facility] - 02/17/2025 8:24 AM EDT Normal sinus rhythm Possible Left atrial enlargement Borderline ECG When compared with ECG of 03-Jan-2025 10:15, No significant change was found Confirmed by Gregorio Barrera ([id number]) on 02/17/2025 8:24:15 AM us Harrison Olivares MD ECG ORDERABLES F inal Result [facility] * Pap Smear (01/24/2021 12:00 AM EDT) 01/24/2021 01/25/2021 9:1 2 AM EDT Narrative SEE NARRATIVE - 01/27/2021 4:04 [place] [address] Junior Data Analyst: Maisha Alejandre MD DIRECTOR OF MARKETING [employer] Cytology Report FINAL DIAGNOSIS A. PAP SMEAR (SUREPATH) CE: SPECIMEN ADEQUACY: Satisfactory for evaluation; transformation zone absent/insufficient. INTERPRETATION: NEGATIVE FOR INTRAEPITHELIAL LESION OR MALIGNANCY. Electronically Signed Out By: IAIN Christopher(ASCP) The Pap test is a screening test primarily for squamous cancers and precursors and has associated false-negative and false-positive results. New technologies such as liquid-based preparations may decrease but will not eliminate all false-negative results. Regular sampling and follow-up of unexplained clinical signs and symptoms are recommended to minimize false negative results. PROCEDURES/ADDENDA HPV Testing (Requested) Ordered Date: 01/25/2021 A. PAP SMEAR (SUREPATH) CE: Human Papilloma Virus Test Negative for high-risk human papillomavirus types 16, 18, 45 and the Other high risk probe set (Includes 31, 33, 35, 39, 51, 52, 56, 58, 59, 66, 68) by Gil [employer] Onclarity HR-HPV analysis. Clinical correlation is advised. This HPV test was performed at [facility], [address] [place] [address]. This test has been FDA approved for SurePath cervical cytology specimens. The accuracy and precision of this test for all other specimen sources has been verified in the Cytopathology Laboratory of the [facility] and has not been cleared or approved by the U.S. Food and Drug Administration. Clinical correlation is advised. CLINICAL HISTORY Date of Last Menstrual Period: Not Provided Menstrual History: Unknown Other Clinical Conditions: Screening Pap SPECIMEN SOURCE A: PAP SMEAR (SUREPATH) CE Patient Name: MEETA LAY : 1985 (Age: 35) Sex: F Institution: [facility] Location: [facility] Date of Collection: 01/24/2021 Date of Reported: 01/27/2021 16:04 Results to: Cecily Delacruz MSN Cecily Delacruz CNJose CYTOLOGY ORDERABLES Fi nal Result SEE NARRATIVE from Last 3 Months or Most Recently Relevant to Health Maintenance Insurance [facility] [place] [id number] [place] [id number] [facility] [place] [facility] [place] [facility] [facility] ACO [place] , AON [address] [place] [address] Care Teams Boiler Attendant Relationship Specialty Start Date End Date Antoine Cerda MD [address] [place] [id number] [email or web address] PCP - General Family Medicine 07/25/24 Additional Source Comments The information contained in this document represents components of the legal health record. It is not the complete legal health record.[facility]
== END ==
LOC: HO.CARD 07:58
PROVIDERS: Visit Provider Internal Medicine
DX: R07.2 Precordial pain (principal); R00.2 Palpitations
CPT/HCPCS: 93246; 93306

== ENCOUNTER → 2025-04-29 08:01 | Outpatient (BNV) | payer OTHER, SELFPAY | PROVIDERS: Visit Provider Internal Medicine Cardiovascular Disease | DX: R07.2 Precordial pain (principal) | CPT/HCPCS: 93306; 93356 ==

== ENCOUNTER 2025-05-03 08:46 | Outpatient (REF) | payer OTHER, SELFPAY ==
[2025-05-03 09:03] LABS: MANUAL DIFF FLAG NO
[2025-05-03 09:24] LABS: Hematocrit 41.4 % (37.0-47.0); Hemoglobin 13.2 g/dl (12.0-16.0); Imm Gran Abs Auto 0.04 X10*3/uL (0.00-0.03); Imm Gran Pct Auto 0.4 % (0.0-0.4); Lymphocytes Absolute Auto 4.3 X10*3/uL (1.2-4.9); Mean Corpuscular HGB Conc 31.9 g/dl (31.0-35.0); Mean Corpuscular Hemoglobin 27.3 pg (27.0-33.0); Mean Corpuscular Volume 85.5 fL (80.0-98.0); NRBC Abs Auto 0.000 X10*3/uL (0.0-0.012); NRBC Pct Auto 0.0 /100WBC (0.0-0.2); Platelet Count 376 X10*3/uL (160-400); Red Blood Count 4.84 X10*6/uL (4.20-5.50); White Blood Count 10.4 X10*3/uL (4.8-10.8)
--- OUTSIDE RECORDS SUMMARY | 2025-05-03 09:49 | XMS_ITS | Encounter Summary ---
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 on file documented as of this encounter Functional Status * Calculated C-SSRS Risk Score (Lifetime/Recent) Answer Date of Assessment Author No Risk Indicated 02/16/2025 11:37 AM Su Hollis RN * [place] Suicide Severity Rating Scale (Screener/Recent Self-Report) Question [...] Contact Info) Description 02/19/2025 Procedure Pass [address] [address] 05/04/2025 1:20 PM EDT Appointment [facility], [address] [place] [address] Cecily Delacruz, [address] [address] 05/04/2025 1:30 PM EDT Procedure visit [address] [place] [address] Brian Lyn MD [address] [place] [address] 12/13/2025 2:45 PM EDT Appointment [address] [address] Cecily Delacruz, [address] [address] documented as of this encounter Visit Diagnoses Not on filedocumented in this encounter Care Teams Neurology Professor Relationship Specialty Start Date End Date Antoine Cerda MD [address] [place] [address] PCP - General Family Medicine 07/25/24 documented as of this encounter Additional Source Comments The information contained in this document represents components of the legal health record. It is not the complete legal health record.[facility]
--- OUTSIDE RECORDS SUMMARY | 2025-05-03 09:49 | XMS_ITS | Clinical Summary ---
Author Organization [facility] Address [address] [place] [address] Phone Care Team Providers Care Decorator Store Name Role Phone Antoine Cerda MD Primary Care Provider [phone] Allergies Active Allergy Reactions Criticality Noted Date [...] Date Diagnosed Date Rheumatoid [facility] of [facility] with negative rheumatoid factor 02/19/2025 Migraines 02/19/2025 PVC (premature ventricular contraction) 02/20/20 Overview (02/19/2025): Caused by taking taking verapamil and tizanidine at the same time. Encounters Date Type Department Care Team Description 04/08/2025 Telephone [facility] Obstetrics - Virtual Department [address] [place] [address] Cecily Delacruz CNM 03/09/2025 10:59 AM EDT - 03/09/2025 11:59 PM EDT Hospital Encounter [facility] [place], OB Ultrasound [address] [place] [address] Cecily Delacruz CNM Discharge Disposition: Home or Self Care 02/19/2025 8:50 AM EDT Office Visit [facility] [address] [place] [address] Cecily Delacruz CNM Encounter for annual routine gynecological examination (Primary Dx); Encounter for contraceptive management; Rheumatoid arthritis of multiple sites with negative rheumatoid factor; Migraine without aura and with status migrainosus, not intractable; PVC (premature ventricular contraction); Enlarged uterus 02/16/2025 11:32 AM EDT - 02/16/2025 5:56 PM EDT Emergency [facility] [address] [place] [address] Harrison Olivares MD Discharge Disposition: Home or Self Care 02/16/2025 Procedure Pass [facility], Ct Scan - [facility] [address] [place] [address] from Last 3 Months Immunizations Immunization Administration [...] 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 [...] st Contact Info) Description 02/19/2025 Procedure Pass [facility], [facility] [address] [place] [address] 05/04/2025 1:20 PM EDT [facility] [address] [place] [address] Cecily Delacruz, CLARA 22 [facility], [address] [place] [address] [email or web address] 05/04/2025 1:30 PM EDT Procedure visit [facility] [address] [place] [address] Dr [place], [place] [address] Brian Lyn MD 22 [facility], [address] [place] [address] 12/13/2025 2:45 PM EDT Appointment [facility], [address] [address] Cecily Delacruz CNM 22 [facility], [address] [place] [address] [email or web address] Health Maintenance Due Date Last Done Comments [...] clinician's provided indication for this examination in [facility]: Enlarged Uterus Procedure: US PELVIS TRANSABDOMINAL AND [...] clinician's provided indication for this examination in [facility]:Enlarged Uterus Procedure: US PELVIS TRANSABDOMINAL AND TRANSVAGINAL [...] visualization of the endometrial cavity. Cecily Delacruz [facility] IMG US PELVIS Final Result * [...] clinician's provided indication for this examination in [facility]: * PE suspected, low/intermediate prob, positive D-dimer [...] clinician's provided indication for this examination in [facility]: *PE suspected, low/intermediate prob, positive D-dimer TECHNIQUE: [...] PM EDT) HCG, QUALITATIVE Negative Negative IU/L [facility] Blood 02/16/2025 1:32 PM EDT 02/16/2025 1:40 PM EDT Harrison Olivares MD LAB BLOOD ORDERAB LES Final Result [address] [address] * (ABNORMAL) D-dimer (02/16/2025 1:32 PM EDT) D-DIMER 622(H) <500 ng/mL FEU [facility] Comment:In patients with low to moderate pre-test probability scores for VTE (PE or DVT), a D-Dimer cut-off less than 500 ng/mL (FEU) has a negative predictive value (NPV) of 97 to 100%. Blood 02/16/2025 1:32 PM EDT 02/16/2025 3:30 PM EDT us Harrison Olivares MD LAB BLOOD ORDERAB LES Final Result [address] [address] * XR CHEST PA AND LATERAL 2 VIEWS (02/16/2025 1:30 PM EDT) Anatomical Region Laterality Modality Chest Computed Radiogr aphy 02/16/2025 1:53 PM EDT Impressions 02/16/2025 1:54 PM EDT No acute abnormality. Narrative 02/16/2025 1:54 PM EDT XR CHEST PA AND LATERAL 2 VIEWS Referring clinician's provided indication for this examination in [facility]: Pain COMPARISON: XR CHEST 1 VIEW FINDINGS: Devices/Tubes/Lines: None. Lungs: No focal consolidation or pulmonary edema. Pleura: No pleural effusions or pneumothorax. Heart/Mediastinum: Normal cardiomediastinal silhouette. Bones/Soft Tissues: No significant abnormality. Procedure Note Coretta Flores MD - 02/16/2025 XR CHEST PA AND LATERAL 2 VIEWS Referring clinician's provided indication for this examination in [facility]:Pain COMPARISON: XR CHEST 1 VIEW FINDINGS: Devices/Tubes/Lines: [...] HS Gen5 <6 0 - 9 ng/L [facility] Blood 02/16/2025 12:4 6 PM EDT 02/16/2025 12:56 PM EDT us Aaron Agrawal MD LAB BLOOD ORDERABL ES Final Result [facility] [address] [place] [address] * (ABNORMAL) CBC and differential (02/16/2025 11:48 AM EDT) WBC 9.75 4.00 - 11.00 K/uL [facility] RBC 4.71 4.00 - 5.20 M/uL [facility] HGB 13.0 12.0 - 16.0 g/dL [facility] HCT 40.7 36.0 - 46.0 % [facility] PLT 386 150 - 450 K/uL [facility] MCV 86.4 80.0 - 100.0 fL [facility] MCH 27.6 27.0 - 31.0 pg [facility] MCHC 31.9(L) 32.0 - 36.0 g/dL [facility] RDW 13.3 11.5 - 14.5 % [facility] MPV 8.5 8.4 - 12.0 fL [facility] NRBC 0.00 0.00 /100 WBCs [facility] ABSOLUTE NRBC 0.00 0.00 K/uL [facility] DIFF METHOD Auto [facility] NEUTS 43.4(L) 48.0 - 76.0 % [facility] LYMPHS 42.3(H) 18.0 - 41.0 % [facility] MONOS 11.2(H) 4.0 - 11.0 % [facility] EOS 2.1 0.0 - 5.0 % [facility] BASOS 0.7 0.0 - 1.5 % [facility] Granulocytes, immature (%) 0.3 0.0 - 0.9 % [facility] ABSOLUTE NEUTS 4.24 1.92 - 7.60 K/uL [facility] ABSOLUTE LYMPHS 4.12(H) 0.72 - 4.10 K/uL [facility] ABSOLUTE MONOS 1.09 0.16 - 1.10 K/uL [facility] ABSOLUTE EOS 0.20 0.00 - 0.50 K/uL [facility] ABSOLUTE BASOS 0.07 0.00 - 0.15 K/uL [facility] Granulocytes, immature 0.03 0.00 - 0.09 K/uL [facility] Blood 02/16/2025 11:4 8 AM EDT 02/16/2025 11:51 AM EDT us Harrison Olivares MD LAB BLOOD ORDERAB LES Final Result [address] [address] * Basic metabolic panel (02/16/2025 11:48 AM EDT) Pathologist [facility] SODIUM 136 133 - 146 mmol/L [facility] CHLORIDE 104 96 - 108 mmol/L [facility] POTASSIUM 4.4 3.3 - 5.1 mmol/L [facility] CO2 23 21 - 35 mmol/L [facility] BUN 16 6 - 19 mg/dL [facility] CREATININE 0.90 0.5 - 1.5 mg/dL [facility] GLUCOSE 88 70 - 99 mg/dL [facility] CALCIUM 9.1 8.4 - 10.3 mg/dL [facility] EGFR 83 >59 mL/min/1.7 3m2 [facility] Comment:Estimated glomerular filtration rate calculated using the CKD-EPI refit equation. ANION GAP 13 10 - 20 mmol/L [facility] Blood 02/16/2025 11:4 8 AM EDT 02/16/2025 11:51 AM EDT us Harrison Olivares MD LAB BLOOD ORDERAB LES Final Result Performing Organization Address [facility]/ZIP Co de Phone Number [address] [address] * ECG 12-LEAD (02/16/2025 11:21 AM EDT) Ventricular Rate EKG/MIN 66 BPM [facility] Atrial Rate 66 BPM [facility] VT Interval 156 ms [facility] QRS Duration 72 ms [facility] QT Interval 436 ms [facility] QTC Interval 457 ms [facility] P [place] 48 degrees [facility] R Wave [place] -8 degrees [facility] T Wave [place] 30 degrees [facility] 02/16/2025 11:2 1 AM [...] SEE NARRATIVE - 01/27/2021 4:04 [place] [address] Financial Institution Vice President: Maisha Alejandre MD SENIOR CREDIT OFFICER Cytology Report FINAL DIAGNOSIS A. PAP SMEAR [...] 56, 58, 59, 66, 68) by [employer] HR-HPV analysis. Clinical correlation is advised. This HPV test was performed at [facility], [address] [place] [address]. This test has been FDA approved for [employer] cervical cytology specimens. The accuracy and precision of this test for all other specimen sources has been verified in the Cytopathology Laboratory of the [facility] and has not been cleared or approved by the U.S. Food and Drug Administration. Clinical correlation is advised. CLINICAL HISTORY Date of Last Menstrual Period: Not Provided Menstrual History: Unknown Other Clinical Conditions: Screening Pap SPECIMEN SOURCE A: PAP SMEAR (SUREPATH) CE Patient Name: MEETA LAY : 1985 (Age: 35) Sex: F Institution: [facility] Location: [facility] Date of Collection: 01/24/2021 Date of Reported: 01/27/2021 16:04 Results to: Cecily Delacruz MSN Cecily Delacruz CNJose CYTOLOGY ORDERABLES Fi nal Result SEE NARRATIVE from Last 3 Months or Most Recently Relevant to Health Maintenance Insurance [facility] [place] [id number] [place] [address] ACO [facility] [employer] Member Subscriber Plan / Payer (Ef fective 2024-Present) Name:Meeta Lay Relation to Subscriber:Self Name:Meeta Lay Payer ID:Not on file Group ID:[id number] Type:Indemnity Address: [facility] [id number], [place] [address] [place] [address] Care Teams Decorator Store Relationship Specialty Start Date End Date Antoine Cerda MD [address] [place] [address] [email or web address] PCP - General Family Medicine 07/25/24 Additional Source Comments The information contained in this document represents components of the legal health record. It is not the complete legal health record.[facility]
--- OUTSIDE RECORDS SUMMARY | 2025-05-03 09:49 | XMS_ITS | Encounter Summary ---
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 [...] st Contact Info) Description 02/19/2025 Procedure Pass [address] [address] 05/04/2025 1:20 PM EDT Appointment [facility] & [address] [place] [address] Cecily Delacruz CNM [address] [place] [address] 05/04/2025 1:30 PM EDT Procedure visit [address] [place] [address] Brian Lyn MD [address] [place] [address] 12/13/2025 2:45 PM EDT Appointment [address] [address] Cecily Delacruz CNM [address] [place] [address] Scheduled Orders Name Type Priority Associated Diagnoses Orde r Schedule US Sonohysterogram Imaging Routine Abnormal pelvic ultrasound Expected: 04/09/2025, Expires: 07/09/2025 documented as of this encounter Visit Diagnoses Diagnosis Abnormal pelvic ultrasound- Primary documented in this encounter Care Teams Thread Checker Relationship Specialty Start Date End Date Antoine Cerda MD [address] [place] [address] [email or web address] PCP - General Family Medicine 07/25/24 documented as of this encounter Additional Source Comments The information contained in this document represents components of the legal health record. It is not the complete legal health record.[facility]
--- OUTSIDE RECORDS SUMMARY | 2025-05-03 09:49 | XMS_ITS | Encounter Summary ---
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 on file documented as of this encounter Plan of Treatment Upcoming Encounters Date Type Department Care Team (Late st Contact Info) Description 02/19/2025 Procedure Pass [address] [address] 05/04/2025 1:20 PM EDT Appointment [facility] [place] [address] Cecily Delacruz, KELLIE[address], [address] [address] 05/04/2025 1:30 PM EDT Procedure visit [address] [place] [address] Brian Lyn MD [address] [place] [address], [address] [address] 12/13/2025 2:45 PM EDT Appointment [address] [address] Cecily Delacruz, KELLIE[address], [address] [address] documented as of this encounter Results * [...] ultrasound appears within normal limits. Katy Browning PARASITOLOGY TEACHER IMG US ABDOMEN Final Res ult documented in this encounter Visit Diagnoses Diagnosis Epigastric pain- Primary Abdominal pain, epigastric Nausea and vomiting, intractability of vomiting not specified, unspecified vomiting type Epigastric pain Abdominal pain, epigastric Nausea and vomiting, intractability of vomiting not specified, unspecified vomiting type documented in this encounter Care Teams It Support Analyst Relationship Specialty Start Date End Date Antoine Cerda MD [email or web address] PCP - General Family Medicine 01/24/21 07/24/24 Antoine Cerda MD [address] [place] [address] PCP - General Family Medicine 07/25/24 Antoine Cerda MD [address] [place] [address] [email or web address] Insurance Assigned Provider 03/04/21 05/04/23 documented as of this encounter Additional Source Comments The information contained in this document represents components of the legal health record. It is not the complete legal health record.[facility]
[2025-05-03 09:54] LABS: Alanine Aminotransferase 6 U/L (0-31); Albumin Level 3.9 g/dL (3.5-5.0); Alkaline Phosphatase 66 U/L (39-117); Anion Gap 12 (12-20); Aspartate Amino Transferase 14 U/L (5-31); Blood Urea Nitrogen 13 mg/dL (9-16); Calcium 8.5 mg/dL (8.4-10.2); Carbon Dioxide 26 mmol/L (22-29); Chloride 106 mmol/L (96-108); Estimated Glomerular Filt Rate > 60; Potassium 3.9 mmol/L (3.3-5.1); Sodium 140 mmol/L (135-145); Total Protein 7.1 g/dL (6.5-8.0)
== END 2025-05-03 08:47 | disposition home or self-care (01) ==
LOC: HO.LAB 08:46
PROVIDERS: PCP Family Medicine; Visit Provider Student in an Organized Health Care Education/Training Program
DX: M45.A0 Non-radiographic axial spondyloarthritis of unspecified sites in spine (principal)
CPT/HCPCS: 36415; 80053; 85025; 85652; 86140

== ENCOUNTER 2025-05-05 15:34 | Outpatient (AMB) | payer OTHER, SELFPAY ==
--- OUTSIDE RECORDS SUMMARY | 2025-05-04 13:17 | XMS_ITS | Encounter Summary ---
Author Organization [facility] Address [address] [place] [address] Phone Care Team Providers Care Warning Analyst Name Role Phone Antoine Cerda MD Primary Care Provider [phone] Encounter Details Date Type Department Care Team (Latest Contact Info) Description 05/04/2025 1:17 PM EDT - 05/04/2025 11:59 PM EDT Hospital Encounter [facility] [address] [place] [address] Cecily Delacruz, [facility] [address] [facility], [address] [place] [address] [email or web address] Discharge Disposition: Home or Self Care Social History Tobacco Use Types Packs/Day Years [...] 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 NTE 4000mg/day). etodolac (LODINE) 400 MG tablet Take 400 mg by mouth 2 (two) times a day as needed. 12/13/2023 gabapentin (NEURONTIN) 100 MG capsule Orally HUMIRA,CF, PEN 40 mg/0.4 mL pen kit INJECT 0.4ML UNDER SKIN EVERY 10 DAYS DIRECTED 06/12/2022 Medication-Free Text TraMADol & Dietary Manage Prod 50 MG Miscellaneous, Sig: Orally methocarbamoL (ROBAXIN) 500 MG tablet Take 1,000 mg by mouth nightly at bedtime. 02/17/2025 norethindrone (MICRONOR) 0.35 mg tabletIndications:E ncounter for contraceptive management Take 1 tablet (0.35 mg total) by mouth daily. 84 tablet 02/19/2025 omeprazole (PRILOSEC) 20 MG capsule Take 1 capsule by mouth daily. traMADoL (ULTRAM) 50 mg tablet TAKE 1 TO 2 TABLETS BY MOUTH TWICE DAILY 12/12/2023 verapamiL (CALAN-SR) 240 MG CR tablet Take 1 tablet by mouth every morning. with food documented as of this encounter Plan of Treatment Upcoming Encounters Date Type Department Care Team (Late st Contact Info) Description 02/19/2025 Procedure Pass [address] [address] 12/13/2025 2:45 PM EDT Appointment [address] [address] Cecily Delacruz, [facility] [address] [facility], [address] [place] [address] [email or web address] documented as of this encounter Procedures Procedure Name Priority Date/Time Associated Diagnosis Comments US SONOHYSTEROGRAM WITH TRANSVAGINAL Routine 05/04/2025 2:04 PM EDT Abnormal pelvic ultrasound documented in this encounter Results * US SONOHYSTEROGRAM WITH TRANSVAGINAL (05/04/2025 2:04 PM EDT) Anatomical Region Laterality Modality Pelvis, Uterus/Adnexa Ultrasound 05/04/2025 3:45 PM EDT Impressions 05/04/2025 6:24 PM EDT 1. Heterogeneous uterus with no discrete masses. 2. Prior to saline infusion, the endometrium measures 3.9 mm. Saline infusion reveals no intracavitary masses. 3. The right ovary appears grossly normal. 4. The left ovary contains a 3.1 cm simple appearing cyst which is overall stable in size and appearance compared to previous films. 5. There is no free fluid. Narrative 05/04/2025 6:24 PM EDT Procedure: US SONOHYSTEROGRAM WITH TRANSVAGINAL 05/04/2025 1:17 PM US Indications: Suspected polyp on prior UL Comparison: No relevant recent comparisons. Technique: Transvaginal sonographic evaluation of the pelvis only was performed. Color Doppler imaging was performed to assess vascularity. Uterine canalization and retrograde saline administration was performed by Dr. Brian Lyn of the OBGYN service per sonohysterography protocol. Reported LMP: 05/02/2025 FINDINGS: Uterus: The uterus measurements acquired; 8.30 cm x 4.82 cm x 3.59 cm with volume of 75.20 ml. The uterus is retroverted in its positioning. The myometrium is heterogeneous. Endometrium: The endometrium measures 3.9 mm and appears grossly normal. Saline infusion reveals no intracavity masses. No focal cervical masses. Ovaries: The right ovary measures 0.96 cm x 2.01 cm x 1.74 cm with volume of 1.76 ml. Appears grossly normal Right Adnexa: No masses seen. The left ovary measures 3.55 cm x 2.86 cm x 2.80 cm with volume of 14.89 ml. Contains a simple cyst = 3.12 x 2.49 x 2.67 cm, previously = 2.92 x 3.24 x 3.14 cm. Left Adnexa: No masses seen. Cul de Sac: There is no evidence of free pelvic fluid. Tech Comments: Procedure Note Marko Armenta MD - 05/04/2025 Procedure: US SONOHYSTEROGRAM WITH TRANSVAGINAL 05/04/2025 1:17 PM US Indications: Suspected polyp on prior UL Comparison: No relevant recent comparisons. Technique: Transvaginal sonographic evaluation of the pelvis only wasperformed. Color Doppler imaging was performed to assess vascularity.Uterine canalization and retrograde saline administration was performed byDr. Brian Lyn of the OBGYN service per sonohysterography protocol. Reported LMP: 05/02/2025 FINDINGS: Uterus: The uterus measurements acquired; 8.30 cm x 4.82 cm x 3.59 cm with volumeof 75.20 ml. The uterus is retroverted in its positioning. The myometriumis heterogeneous. Endometrium: The endometrium measures 3.9 mm and appears grossly normal. Salineinfusion reveals no intracavity masses. No focal cervical masses. Ovaries: The right ovary measures 0.96 cm x 2.01 cm x 1.74 cm with volume of 1.76ml. Appears grossly normal Right Adnexa: No masses seen. The left ovary measures 3.55 cm x 2.86 cm x 2.80 cm with volume of 14.89ml. Contains a simple cyst = 3.12 x 2.49 x 2.67 cm, previously = 2.92 x 3.24 x3.14 cm. Left Adnexa: No masses seen. Cul de Sac: There is no evidence of free pelvic fluid. Tech Comments: IMPRESSION: 1. Heterogeneous uterus with no discrete masses. 2. Prior to saline infusion, the endometrium measures 3.9 mm. Salineinfusion reveals no intracavitary masses. 3. The right ovary appears grossly normal. 4. The left ovary contains a 3.1 cm simple appearing cyst which isoverall stable in size and appearance compared to previous films. 5. There is no free fluid. us Cecily HOPKINS IMG US PELVIS Final Result documented in this encounter Visit Diagnoses Diagnosis Abnormal pelvic ultrasound documented in this encounter Care Teams Warning Analyst Relationship Specialty Start Date End Date Antoine Cerda MD [address] [place] [address] PCP - General Family Medicine 07/25/24 documented as of this encounter Additional Source Comments The information contained in this document represents components of the legal health record. It is not the complete legal health record.[facility]
--- OUTSIDE RECORDS SUMMARY | 2025-05-04 13:30 | XMS_ITS | Encounter Summary ---
Author Organization [facility] Address [address] [facility] [address] [place] [address] Phone Care Team Providers Care Chief Station Engineer Name Role Phone Antoine Cerda MD Primary Care Provider [phone] Encounter Details Date Type Department Care Team (Latest Contact Info) Description 05/04/2025 1:30 PM EDT Procedure visit [facility] [address] [place] [address] [place] [address] Brian Lyn MD [address] [facility], [address] [place] [address] [email or web address] Enlarged uterus (Primary Dx) Social History Tobacco Use Types Packs/Day Years [...] 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 who presents for sonohysterogram due to thickened endometrium with a possible focal lesion LMP 05/01/2025. test NA Prior to Admission medications Medication Sig Start Date End Date Taking? Authorizing Provider acetaminophen (TYLENOL) 325 mg tablet Take 650 mg by mouth every 6 (six) hours as needed (for body aches and/or fevers greater than 100F. NTE 4000mg/day). Emir Austin MD etodolac (LODINE) 400 MG tablet Take 400 mg by mouth 2 (two) times a day as needed. 12/13/23 Emir Austin MD gabapentin (NEURONTIN) 100 MG capsule Orally Emir Austin MD HUMIRA, CF, PEN 40 mg/0.4 mL pen kit INJECT 0.4ML UNDER SKIN EVERY 10 DAYS DIRECTED 06/12/22 Emir Austin MD Medication-Free Text TraMADol & Dietary Manage Prod 50 MG Miscellaneous, Sig: Orally Emir Austin MD methocarbamoL (ROBAXIN) 500 MG tablet Take 1,000 mg by mouth nightly at bedtime. 02/17/25 Emir Austin MD norethindrone (MICRONOR) 0.35 mg tablet Take 1 tablet (0.35 mg total) by mouth daily. 02/19/25 Cecily Delacruz CNM omeprazole (PRILOSEC) 20 MG capsule Take 1 capsule by mouth daily. Emir Austin MD traMADoL (ULTRAM) 50 mg tablet TAKE 1 TO 2 TABLETS BY MOUTH TWICE DAILY 12/12/23 Emir Austin MD verapamiL (CALAN-SR) 240 MG CR tablet Take 1 tablet by mouth every morning. with food Emir Austin MD Allergies Allergen Reactions Erythromycin Anaphylaxis Pumpkin Hives Procedure: The patient was placed in the dorsal lithotomy position. A sterile speculum was placed the vagina. The cervix was prepped with betadine. A catheter was inserted through the cervix without difficulty.10 ml of normal saline was instilled through the catheter. Pt tolerated the procedure well. Findings: no focal lesion appreciated. Brian Lyn MD documented in this encounter Plan of Treatment Upcoming Encounters Date Type Department Care Team (Late st Contact Info) Description 02/19/2025 Procedure Pass [address] [address] 12/13/2025 2:45 PM EDT Appointment [facility] [address] [place] [address] Cecily Delacruz, KELLIE [address] [facility], [address] [place] [address] [email or web address] documented as of this encounter Visit Diagnoses Diagnosis Enlarged uterus- Primary Hypertrophy of uterus documented in this encounter Care Teams Chief Station Engineer Relationship Specialty Start Date End Date Antoine Cerda MD [address] [place] [address] [email or web address] PCP - General Family Medicine 07/25/24 documented as of this encounter Additional Source Comments The information contained in this document represents components of the legal health record. It is not the complete legal health record.[facility]
--- NOTE | 2025-05-05 15:38 | A.OFFVIS_ITS ---
Vital Signs 05/05/25 15:45 Height 5 ft 2 in Weight 201 lb 15.095 oz BMI 36.9 BP 132/80 Blood Pressure Location Lt brachial Position Sitting Pulse 73 Pulse Source Pulse Oximeter Pulse Oximetry (%) 98 Oxygen Delivery Method Room Air Intake Visit Reasons: f/u Ax SpA Intake Note: Patient presents for Ax SpA follow up. Allergies pumpkin Allergy (Mild, Verified 05/05/25 15:43) Hives erythromycin base Adverse Reaction (Severe, Verified 05/05/25 15:42) Anaphylaxis Medication List - Last Reconciled 05/05/25 by Emma Allen MD bupropion HCl SR 150 mg PO BID dexamethasone swish & spit q6-8 etodolac 400 mg PO BID PRN gabapentin 900 mg (3 x 300 mg) PO BEDTIME Humira(CF) Pen (adalimumab) 40 mg (0.4 mL) subcut Q10D NS methocarbamol 1,000 mg (2 x 500 mg) PO BEDTIME norethindrone (contraceptive) 0.35 mg PO DAILY omeprazole 20 mg PO BID tramadol 50 - 100 mg PO BID triamcinolone acetonide 0.5% appl topical verapamil ER 240 mg PO DAILY HPI Comments Details: Patient is a 39-year-old female with depression/anxiety, GERD, restless legs syndrome and non radiographic axial spondyloarthritis here today for follow up Interval History: Patient last seen 11/03/24 with me - On Humira 40mg SC every 10 days and etodolac 400mg daily - Doing well - No new complaints Since then has had a very eventful couple of months - Uterine mass found on routine Gyne exam, currently being evaluated - Sudden palpitations requiring placement of a heart monitor which she currently has Today, - On Humira 40mg SC every 10 days and etodolac 400mg daily - Feels increased achyness mostly in the shoulders and the hips Rheumatologic History: Non radiographic axial spondyloarthritis Started SSZ 12/2018.? helpful.? caused migraines These resolved on cessation of med.? Started Humira July 2019 with dramatic improvement- advanced to every 10 days sometime in 2020 Current Rheumatology Medication(s): Humira 40 mg sc every 10 days Etodolac 400 mg daily [facility] Medical History Non-radiographic axial spondyloarthritis Low back pain Hypertension Multiple joint pain Psoriasis Migraine Surgical History Hx of section Family History Sister Asthma Mother Hyperlipidemia Hypertension Mental disorder Diabetes Seizure Father Hypertension FH: malignant neoplasm of prostate Maternal Grandmother Carcinoma of breast Social History Household Members: Family and Children Alcohol intake: current Alcohol intake frequency: holidays/special occasions only Patient Tobacco Use Status: Current everyday Tobacco user Tobacco use type: Cigarette Cigarette Packs Per Day: 4 Current occupational status: employed 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 Review of Systems Const Details: Review of Systems Constitutional: Denies fever, chills, weight loss ENT: Denies vision changes, eye pain or eye redness, dental caries, dry mouth GI: Denies nausea, vomiting, diarrhea, abdominal pain, change in BM Pulm: Denies SOB, GARCIA, hemoptysis, wheezing Cards: Denies chest pain, palpitations Skin: Denies Raynaud's, rash, nail changes, photosensitivity, [employer] SPECIALIST: Denies headaches, weakness, paresthesias, recurrent falls MSK: as per HPI All other systems reviewed and are unremarkable except noted above Physical Exam Exam Exam: Vital signs reviewed Physical Examination CONSTITUITIONAL Patient alert and cooperative. Well appearing and in no apparent painful distress MSK Hands * Right Hand: Able to make a fist. No swelling or tenderness to palpation of t he MCPs, PIPs or DIPs. No deformities noted. * Left Hand: Able to make a fist. No swelling or tenderness to palpation of the MCPs, PIPs or DIPs. No deformities noted. Wrists * Right Wrist: Full ROM to flexion and extension. No swelling or TTP * Left Wrist: Full ROM to flexion and extension. No swelling or TTP Elbows * Right Elbow: Full ROM. No swelling or TTP. No TTP of the medial epicondyle. No TTP of the lateral epicondyle * Left Elbow: Full ROM. No swelling or TTP. No TTP of the medial epicondyle. No TTP of the lateral epicondyle Shoulders * Right shoulder: No swelling noted. No TTP of the AC joint. TTP of the subacromial bursa. No TTP of the posterior shoulder * Left shoulder: No swelling noted. No TTP of the AC joint. No TTP of the subacromial bursa. No TTP of the posterior shoulder Hip bursa: No tenderness to palpation bilaterally Knees * Right knee: Full ROM. No swelling noted. TTP of the knee joint line. No TTP of pes anserine bursa * Left knee: Full ROM. No swelling noted. No TTP of the knee joint line. No TTP of pes anserine bursa. * Crepitations felt bilaterally Ankles * Right ankle: Good ankle dorsiflexion and plantar flexion. No swelling. No TTP of the ankle joint * Left ankle: Good ankle dorsiflexion and plantar flexion. No swelling. No TTP of the ankle joint Feet * Right foot: Negative squeeze test * Left foot: Negative squeeze test Tender points? * No tenderness to palpation of the bilateral trapezius, supraspinatus, anterior costochondral junctions, bilateral suboccipital muscle insertions SKIN No rashes Vital Signs: Last Vital Signs Pulse 73 05/05/25 15:45 BP 132/80 05/05/25 15:45 Pulse Ox 98 05/05/25 15:45 Oxygen Delivery Method Room Air 05/05/25 15:45 BMI result Body Mass Index 36.9 Results Reviewed Results Reviewed: Laboratory Tests 05/03/25 09:02 WBC 10.4 RBC 4.84 Hgb 13.2 Hct 41.4 Plt Count 376 ESR 13 Sodium 140 Potassium 3.9 Chloride 106 Carbon Dioxide 26 BUN 13 Creatinine 0.84 AST 14 ALT 6 C-Reactive Protein 0.41 Infectious serologies 11/02/24 11:43 Hepatitis A IgM Ab Nonreactive Hep Bs Antigen Negative Hep Bs Antibody REACTIVE Hep B Core Total Ab Nonreactive Hepatitis C Ab (EIA) Nonreactive TB Test (T-Spot) Com Negative Assessment & Plan Assessment & Plan (1) Non-radiographic axial spondyloarthritis: Comment: Started SSZ 12/2018.? helpful.? caused migraines These resolved on cessation of med.? Started Humira July 2019 with dramatic improvement- advanced to every 10 days sometime in 2020 Code(s): M45.A0 - Non-radiographic axial spondyloarthritis of unspecified sites in spine Category: Medical Plan: #Non radiographic axial spondyloarthritis Patient is a 38-year-old female with non radiographic axial SpA presents for follow-up. Doing well overall on Humira 40 mg every 10 days. She also takes etodolac 400 mg daily. Plan - Continue Humira 40 mg Q 10 days. - Etodolac 400mg daily - Continue gabapentin and tizanidine as prescribed - RTC 4 months - Labs before visit: CBC, CMP, ESR, CRP (2) Encounter for monitoring of adalimumab therapy: Code(s): Z51.81 - Encounter for therapeutic drug level monitoring; Z79.620 - alf (current) use of immunosuppressive biologic Plan: #Long-term Use of TNF Inhibitors: Humira Discussed with the patient the benefits and risks of TNF inhibitors for the management of the rheumatic condition Benefits include reduce pain, maintenance of remission and reduction of flares as well as ?progression of the disease Risks include injection sites/infusion reactions, serious infections (such as bacterial infections, opportunistic infections), malignancy, delaminating syndromes, autoimmune phenomena, CHF exacerbations, palmar plantar psoriasis and cytopenias Recommended rotating injection sites, and holding medication during and for up to 1 week after resolution of a febrile illness or open skin wound (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-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 (nsaid): Code(s): Z79.1 - 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 of non-steroidal anti-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 (NSAID) Plan: #Long-term Use of NSAIDs Discussed with patient the benefits and risk of NSAIDs for managing the rheumatic condition Benefits include: - Reduced the pain, improved mobility, and increased participation in activities Risks include: - GI upset, potential also worsening or formation (especially in patients > 65 years old) Recommended using proton pump inhibitors (PPIs) for the duration of NSAID use to reduce the risk of gastric ulcers Plan I spent 30 minutes reviewing the record and labs, taking a history, examining the patient, discussing the treatment plan and documenting in the medical record Medications: Refilled gabapentin 900 mg (3 x 300 mg) PO BEDTIME 270 caps 1RF M45.A0 - Non- radiographic axial spondyloarthritis of unspecified sites in spine etodolac 400 mg PO BID PRN 60 tabs 4RF for pain M45.A0 - Non-radiographic axial spondyloarthritis of unspecified sites in spine Humira(CF) Pen (adalimumab) 40 mg (0.4 mL) subcut Q10D 3 ea 5RF NS M45.A0 - Non-radiographic axial spondyloarthritis of unspecified sites in spine methocarbamol 1,000 mg (2 x 500 mg) PO BEDTIME 60 tabs 5RF M45.A0 - Non- radiographic axial spondyloarthritis of unspecified sites in spine Coding Level of Care Code Est Pt Level 4 (38541) Complex EM visit Add On G2211 Diagnoses Non-radiographic axial spondyloarthritis M45.A0 Encounter for monitoring of adalimumab therapy Z51.81; Z79.620 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
[2025-05-05 15:45] VITALS: BP 132/80; PULSE 73; O2SAT 98; BMI 36.9
--- OUTSIDE RECORDS SUMMARY | 2025-05-05 18:25 | XMS_ITS | Encounter Summary ---
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 us Katy Deanne Browning [facility] US ABDOMEN Final Res ult documented in this encounter Visit Diagnoses Diagnosis Epigastric pain- Primary Abdominal pain, epigastric Nausea and vomiting, intractability of vomiting not specified, unspecified vomiting type Epigastric pain Abdominal pain, epigastric Nausea and vomiting, intractability of vomiting not specified, unspecified vomiting type documented in this encounter Care Teams Project Inspector Relationship Specialty Start Date End Date Antoine Cerda MD [email or web address] PCP - General Family Medicine 01/24/21 07/24/24 Antoine Cerda MD [address] [place] [address] [email or web address] PCP - General Family Medicine 07/25/24 Antoine Cerda MD [address] [place] [address] [email or web address] Insurance Assigned Provider 03/04/21 05/04/23 documented as of this encounter Additional Source Comments The information contained in this document represents components of the legal health record. It is not the complete legal health record.[facility]
--- OUTSIDE RECORDS SUMMARY | 2025-05-05 18:26 | XMS_ITS | Encounter Summary ---
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 [address] [facility], [address] [place] [address] [email or web address] documented as of this encounter Visit Diagnoses Not on filedocumented in this encounter Care Teams Boarder Steam Relationship Specialty Start Date End Date Antoine Cerda MD [address] [place] [address] [email or web address] PCP - General Family Medicine 07/25/24 documented as of this encounter Additional Source Comments The information contained in this document represents components of the legal health record. It is not the complete legal health record.[facility]
--- OUTSIDE RECORDS SUMMARY | 2025-05-05 18:26 | XMS_ITS | Encounter Summary ---
Author Organization [facility] Address [address] [place] [address] Phone Care Team Providers Care Reptile Keeper Name Role Phone Antoine Cerda MD Primary Care Provider [phone] Encounter Details Date Type Department Care Team (Late st Contact Info) Description 04/08/2025 Telephone [facility]etrics - Virtual Department [address] [place] [address] Cecily Delacruz, KELLIE [address] [facility] [address] [place] [address] [email or web address] Social History Tobacco Use Types Packs/Day Years [...] is your housing situation today? 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 us Cecily Delacruz [facility] US PELVIS Final Result documented in this encounter Visit Diagnoses Diagnosis Abnormal pelvic ultrasound- Primary Abnormal pelvic ultrasound documented in this encounter Care Teams Reptile Keeper Relationship Specialty Start Date End Date Antoine Cerda MD [address] [place] [address] [email or web address] PCP - General Family Medicine 07/25/24 documented as of this encounter Additional Source Comments The information contained in this document represents components of the legal health record. It is not the complete legal health record.[facility]
--- OUTSIDE RECORDS SUMMARY | 2025-05-05 18:26 | XMS_ITS | Clinical Summary ---
Author Organization [facility] Address [address] [place] [phone] Phone Care Team Providers Care Spanish Speaking Nanny Name Role Phone Antoine Cerda MD Primary [...] Noted Date Diagnosed Date Rheumatoid arthritis of [facility] with negative rheumatoid factor 02/19/2025 Migraines 02/19/2025 PVC (premature ventricular contraction) 02/20/20 Overview (02/19/2025): Caused by taking taking verapamil and tizanidine at the same time. Encounters Date Type Department Care Team Description 05/04/2025 1:30 PM EDT Procedure visit [facility] [address] [place] [address] [place] [id number] Brian Lyn MD Enlarged uterus (Primary Dx) 05/04/2025 1:17 PM EDT - 05/04/2025 11:59 PM EDT Hospital Encounter [facility] [address] [place] [address] Cecily Delacruz CNM Discharge Disposition: Home or Self Care 04/08/2025 Telephone [facility] Obstetrics - Virtual Department [address] [place] [address] Cecily Delacruz CNM 03/09/2025 10:59 AM EDT - 03/09/2025 11:59 PM EDT Hospital Encounter [facility] OB Ultrasound [address] [place] [address] Cecily Delacruz CNM Discharge Disposition: Home or Self Care 02/19/2025 8:50 AM EDT Office Visit [facility] [address] [place] [address] [place] [address] Cecily Delacruz CNM Encounter for annual routine gynecological examination (Primary Dx); Encounter for contraceptive management; Rheumatoid arthritis of multiple sites with negative rheumatoid factor; Migraine without aura and with status migrainosus, not intractable; PVC (premature ventricular contraction); Enlarged uterus 02/16/2025 11:32 AM EDT - 02/16/2025 5:56 PM EDT Emergency [facility] [address] [place] [address] Harrison Olivares MD Discharge Disposition: Home or Self Care 02/16/2025 Procedure Pass [facility], Ct Scan - [facility] [address] [place] [address] from Last 3 Months Immunizations Immunization Administration Dates Next Due COVID-19 (Pre-06/17) Pfizer Vaccine, mRNA, PF ,11/21/2020 Influenza Quadrivalent Preservative Free IM 01/2019 Pneumococcal conjugate PCV13 11/02/2019 Td, unspecified formulation [...] Date 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 on fi le [...] st Contact Info) Description 02/19/2025 Procedure Pass [address] [address] 12/13/2025 2:45 PM EDT Appointment [address] [address] Cecily Delacruz, [facility] [address] [facility], [address] [place] [address] [email or web address] Health Maintenance Due Date Last Done Comments DEPRESSION SCREENING 1997 SMOKING Hx and SMOKELESS TOBACCO SCREENING 1998 HIV ONE-TIME SCREENING (18-65 YEARS) 2003 PNEUMOCOCCAL VACCINES (0-49 years) (2 of 2 - PPSV23) 12/28/2019 11/02/2019 INFLUENZA VACCINE (#1) 2025 05/23/2023, 2018 COVID-19 VACCINE ( season) 2025 09/01/2021, 12/13/2020, 11/21/2020 PAP SMEAR 01/24/2026 01/24/2021, 02/2016, 06/01/2016, Additional history exists SCREENING FOR DIABETES [...] 05/04/2025 2:04 PM EDT Abnormal pelvic ultrasound US PELVIS TRANSABDOMINAL PLUS TRANSVAGINAL Routine 03/09/2025 [...] Relevant to Health Maintenance Results * US SONOHYSTEROGRAM WITH TRANSVAGINAL (05/04/2025 [...] films. 5. There is no free fluid. Cecily Delacruz [facility] IMG US PELVIS Final Result * US PELVIS TRANSABDOMINAL PLUS TRANSVAGINAL (03/09/2025 [...] clinician's provided indication for this examination in [facility]: Enlarged Uterus Procedure: US PELVIS TRANSABDOMINAL AND [...] clinician's provided indication for this examination in [facility]:Enlarged Uterus Procedure: US PELVIS TRANSABDOMINAL AND TRANSVAGINAL [...] provide better visualization of the endometrial cavity. us Cecily Boyle Jayme CNM IMG US PELVIS Final Result * CT [...] clinician's provided indication for this examination in Epic: * PE suspected, low/intermediate prob, positive D-dimer [...] clinician's provided indication for this examination in Epic: *PE suspected, low/intermediate prob, positive D-dimer TECHNIQUE: [...] ATTESTATION: I, Christel Colon as teaching physician, havereviewed the images for this case and if necessary edited the reportoriginally created by Mumtaz Robles. Harrison Olivares MD IMG CT CHEST F inal Result * HCG, serum qualitative (02/16/2025 1:32 PM EDT) HCG, QUALITATIVE Negative Negative IU/L [facility] Blood 02/16/2025 1:32 PM EDT 02/16/2025 1:40 PM EDT Harrison Olivares MD LAB BLOOD ORDERAB LES Final Result Performing Organization Address [facility]/ZIP Co de Phone Number [address] [address] * (ABNORMAL) D-dimer (02/16/2025 1:32 PM EDT) D-DIMER 622(H) <500 ng/mL FEU [facility] Comment:In patients with low to moderate pre-test probability scores for VTE (PE or DVT), a D-Dimer cut-off less than 500 ng/mL (FEU) has a negative predictive value (NPV) of 97 to 100%. Blood 02/16/2025 1:32 PM EDT 02/16/2025 3:30 PM EDT Harrison Olivares MD LAB BLOOD ORDERAB LES Final Result Performing Organization Address [facility]/ZIP Co de Phone Number [address] [address] * XR CHEST PA AND LATERAL 2 VIEWS (02/16/2025 1:30 PM EDT) Anatomical Region Laterality Modality Chest Computed Radiogr aphy 02/16/2025 1:53 PM EDT Impressions 02/16/2025 1:54 PM EDT No acute abnormality. Narrative 02/16/2025 1:54 PM EDT XR CHEST PA AND LATERAL 2 VIEWS Referring clinician's provided indication for this examination in [facility]: Pain COMPARISON: XR CHEST 1 VIEW FINDINGS: Devices/Tubes/Lines: None. Lungs: No focal consolidation or pulmonary edema. Pleura: No pleural effusions or pneumothorax. Heart/Mediastinum: Normal cardiomediastinal silhouette. Bones/Soft Tissues: No significant abnormality. Procedure Note Coretta Flores MD - 02/16/2025 XR CHEST PA AND LATERAL 2 VIEWS Referring clinician's provided indication for this examination in [facility]:Pain COMPARISON: XR CHEST 1 VIEW FINDINGS: Devices/Tubes/Lines: [...] HS Gen5 <6 0 - 9 ng/L [facility] Blood 02/16/2025 12:4 6 PM EDT 02/16/2025 12:56 PM EDT us Aaron Agrawal MD LAB BLOOD ORDERABL ES Final Result [address] [address] * (ABNORMAL) CBC and differential (02/16/2025 11:48 AM EDT) WBC 9.75 4.00 - 11.00 K/uL [facility] RBC 4.71 4.00 - 5.20 M/uL [facility] HGB 13.0 12.0 - 16.0 g/dL [facility] HCT 40.7 36.0 - 46.0 % [facility] PLT 386 150 - 450 K/uL [facility] MCV 86.4 80.0 - 100.0 fL [facility] MCH 27.6 27.0 - 31.0 pg [facility] MCHC 31.9(L) 32.0 - 36.0 g/dL [facility] RDW 13.3 11.5 - 14.5 % [facility] MPV 8.5 8.4 - 12.0 fL [facility] NRBC 0.00 0.00 /100 WBCs [facility] ABSOLUTE NRBC 0.00 0.00 K/uL [facility] DIFF METHOD Auto [facility] NEUTS 43.4(L) 48.0 - 76.0 % [facility] LYMPHS 42.3(H) 18.0 - 41.0 % [facility] MONOS 11.2(H) 4.0 - 11.0 % [facility] EOS 2.1 0.0 - 5.0 % [facility] BASOS 0.7 0.0 - 1.5 % [facility] Granulocytes, immature (%) 0.3 0.0 - 0.9 % [facility] ABSOLUTE NEUTS 4.24 1.92 - 7.60 K/uL [facility] ABSOLUTE LYMPHS 4.12(H) 0.72 - 4.10 K/uL [facility] ABSOLUTE MONOS 1.09 0.16 - 1.10 K/uL [facility] ABSOLUTE EOS 0.20 0.00 - 0.50 K/uL [facility] ABSOLUTE BASOS 0.07 0.00 - 0.15 K/uL [facility] Granulocytes, immature 0.03 0.00 - 0.09 K/uL [facility] Blood 02/16/2025 11:4 8 AM EDT 02/16/2025 11:51 AM EDT us Harrison Olivares MD LAB BLOOD ORDERAB LES Final Result Performing Organization Address [facility] Co de Phone Number [address] [address] * Basic metabolic panel (02/16/2025 11:48 AM EDT) SODIUM 136 133 - 146 mmol/L [facility] CHLORIDE 104 96 - 108 mmol/L [facility] POTASSIUM 4.4 3.3 - 5.1 mmol/L [facility] CO2 23 21 - 35 mmol/L [facility] BUN 16 6 - 19 mg/dL [facility] CREATININE 0.90 0.5 - 1.5 mg/dL [facility] GLUCOSE 88 70 - 99 mg/dL [facility] CALCIUM 9.1 8.4 - 10.3 mg/dL [facility] EGFR 83 >59 mL/min/1.7 3m2 [facility] Comment:Estimated glomerular filtration rate calculated using the CKD-EPI refit equation. ANION GAP 13 10 - 20 mmol/L [facility] Blood 02/16/2025 11:4 8 AM EDT 02/16/2025 11:51 AM EDT us Harrison Olivares MD LAB BLOOD ORDERAB LES Final Result Performing Organization Address [facility] Co de Phone Number [address] [address] * ECG 12-LEAD (02/16/2025 11:21 AM EDT) Ventricular Rate EKG/MIN 66 BPM [facility] Atrial Rate 66 BPM [facility] HI Interval 156 ms [facility] QRS Duration 72 ms [facility] QT Interval 436 ms [facility] QTC Interval 457 ms [facility] P [place] 48 degrees [facility] R Wave [place] -8 degrees [facility] T Wave [place] 30 degrees [facility] 02/16/2025 11:2 1 AM EDT 02/17/2025 8:24 AM EDT Narrative [facility] - 02/17/2025 8:24 AM EDT Normal sinus rhythm Possible Left atrial enlargement Borderline ECG When compared with ECG of 03-Jan-2025 10:15, No significant change was found Confirmed by Gregorio Barrera ([id number]) on 02/17/2025 8:24:15 AM Harrison Olivares MD ECG ORDERABLES F inal Result [facility] * Pap Smear (01/24/2021 12:00 AM EDT) 01/24/2021 01/25/2021 9:1 2 AM EDT Narrative SEE NARRATIVE - 01/27/2021 4:04 [place] [address] Inspector Tester Sorter: Maisha Alejandre MD [employer] MACHINE OPERATOR Cytology Report FINAL DIAGNOSIS A. PAP SMEAR [...] 52, 56, 58, 59, 66, 68) by 24 Quan On[employer]arity HR-HPV analysis. Clinical correlation is advised. This HPV test was performed at [facility], [address] [place] [address]. This test has been FDA approved for [facility] cervical cytology specimens. The accuracy and precision of this test for all other specimen sources has been verified in the Cytopathology Laboratory of the [facility] and has not been cleared or approved by the U.S. Food and Drug Administration. Clinical correlation is advised. CLINICAL HISTORY Date of Last Menstrual Period: Not Provided Menstrual History: Unknown Other Clinical Conditions: Screening Pap SPECIMEN SOURCE A: PAP SMEAR (SUREPATH) CE Patient Name: MEETA LAY : 1985 (Age: 35) Sex: F Institution: [facility] Location: [facility] Date of Collection: 01/24/2021 Date of Reported: 01/27/2021 16:04 Results to: Cecily DURAN Cecily Delacruz CNJose CYTOLOGY ORDERABLES nal Result SEE NARRATIVE from Last 3 Months or Most Recently Relevant to Health Maintenance [place] [address] [place] [address] [place] [address] [place] [address] [place] [facility] [place] [place] [facility] [place] [facility] ACO [employer] ACO M[facility] Care Teams Spanish Speaking Nanny Relationship Specialty Start Date End Date Antoine Cerda MD [address] [place] [id number] [email or web address] PCP - General Family Medicine 07/25/24 Additional Source Comments The information contained in this document represents components of the legal health record. It is not the complete legal health record.[facility]
== END 2025-05-05 16:14 | disposition home or self-care (01) ==
LOC: HO.RHES 15:34
PROVIDERS: PCP Family Medicine; Visit Provider Student in an Organized Health Care Education/Training Program
DX: M45.A0 Non-radiographic axial spondyloarthritis of unspecified sites in spine (principal); Z51.81 Encounter for therapeutic drug level monitoring; Z79.620 Long term (current) use of immunosuppressive biologic; Z79.1 Long term (current) use of non-steroidal anti-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 (NSAID)
CPT/HCPCS: 99214; G2211